=== PATIENT | male | born 1950 | race Caucasian/White ===

== ENCOUNTER → 2023-08-06 12:37 | Outpatient (REF) | payer MEDICARE, SELFPAY | LOC: WOUND 12:37 | PROVIDERS: ATTENDING PHYSICIAN Surgery; FAMILY PHYSICIAN Family Medicine | DX: L89.613 Pressure ulcer of right heel, stage 3 (principal); E11.65 Type 2 diabetes mellitus with hyperglycemia; E11.42 Type 2 diabetes mellitus with diabetic polyneuropathy; E66.01 Morbid (severe) obesity due to excess calories; I10 Essential (primary) hypertension; Z78.9 Other specified health status; Z79.4 Long term (current) use of insulin | CPT/HCPCS: 99203 ==

== ENCOUNTER 2023-08-06 17:32 | Inpatient (IN) | payer MEDICARE, SELFPAY ==
[2023-08-06 13:07] VITALS: BP 155/100
[2023-08-06 14:56] VITALS: BMI 39.5
--- NOTE | 2023-08-06 15:11 | ED.GENMED ---
History of Present Illness
<Britany Wagner PA-C - Last Filed: 08/06/23 17:49>
General
Chief Complaint: Skin Problem
Source: patient
Exam Limitations: none
Time Seen by Provider: 08/06/23 14:34
Nursing documentation reviewed up to this point in time: agreed with
Travel History
Have you had any contact with someone who has COVID-19?: No
Do you have any symptoms of coronavirus? Fever > 100 degrees, chills, cough, shortness of breath, sore throat, loss of taste or smell, muscle aches, or headache?: No
History of Present Illness
History of Present Illness:
Patient is a 72-year-old male with history diabetes, hypertension presenting for evaluation of right foot wound. Patient states that he stepped on a nail/pin that went through his shoe approximately 4 months ago around [place] time and has been
dealing with a wound on right heel since. He was being seen at wound care center at [facility] but stopped going since it was too far away. Patient's son has been assisting patient dressing changes/wound care but it has been 3 weeks since
last cleaning. Patient states that right lower leg and foot became increasingly more swollen about a week ago with worsening pain after his bandage fell off. Patient has been unable to clean and replace bandage himself. Patient has not had a
shower in over a week. Patient was seen by his primary care provider earlier today who referred him to the emergency room for concern of infection.
Patient denies any fever, chills, nausea/vomiting, chest pain, shortness of breath.
Patient does state that his tetanus shot was updated about 3 years ago.
Past History
<Britany Wagner PA-C - Last Filed: 08/06/23 17:49>
Past History
ED Past Medical History: GERD, HTN, Hypercholesterolemia and IDDM
ED Past Surgical History: None
Social History
Tobacco: Non-smoker
Alcohol: None
Drug: None
Living: with family
Phy Exam
<Britany Wagner PA-C - Last Filed: 08/06/23 17:49>
Physical Exam
Physical Exam:
General: In no apparent distress, nontoxic appearing
Vitals: Hypertensive, otherwise vital signs stable; afebrile
HEENT: Atraumatic, normocephalic; pupils equal round and reactive to light bilaterally, sclera anicteric bilaterally, protecting airway
Neck: appears supple, no meningeal signs
CV: Regular rate and rhythm, heart sounds normal, no evidence of cyanosis
Resp: No evidence of respiratory distress, lungs clear
Abd: Obese, soft, nontender, non-distended
Extremities: Poor hygiene of feet and toes-covered in dirt, large approximately 9 cm in diameter circular shallow wound on right heel without any evidence of necrosis; wound tender to touch, significant swelling of right foot and right lower
extremity, DP pulses palpable bilaterally
Neuro: alert and oriented x 3; grossly intact, speech normal
Psych: Normal affect
Skin: Large wound of right heel as documented above
Course
<Britany Wagner PA-C - Last Filed: 08/06/23 17:49>
Orders/Labs/Results
Orders:
Orders
08/06/23 15:06
Piperacillin/Tazo 3.375 Gram [Zosyn] 3.375 gram in 50 ml IV NOW
Foot, Right 3 View [CR Foot - Right Min 3 Views] Urgent
Comment:
Reason For Exam: diabetic foot wound right heel
08/06/23 15:10
Tetanus/Diphth/Acelpertussis [Adacel] 0.5 ml IM .ONCE ONE
08/06/23 15:31
Complete Blood Count/With Diff Urgent
Comprehensive Metabolic Panel Urgent
Blood Culture Q30M
PILY Source: Blood/Venous
Specimen Description:
Blood Culture Q30M
PILY Source: Blood/Venous
Specimen Description:
Wound Culture [Wound/Abscess/Other Culture] Urgent
PILY Source: Foot
Specimen Description: Right
Date Specimen was Collected: 08/06/23
Time Specimen was Collected: 15:16
08/06/23 15:43
Vancomycin [Vancocin] 2,000 mg 0.9% Sodium Chloride 500 ml [Nss] 500 ml IV NOW
08/06/23 17:19
Admit/Transfer Patient As Directed
Co-Sign Provider:
Level of Care: Inpatient admission
Assign to:: Medical/Surgical
Physician / Group: sabino calderón
Diagnosis: right heel / achilles diabetic wound, self care defecit
Reason for Hospitalization: right heel / achilles diabetic wound, self care defecit
Expected length of stay greater than two midnights?: Yes
ELOS- Estimated Length of Stay in days: 4
I certify the patient meets the requirements for IP care: Yes
Code Status As Directed
Resuscitation Status: Full Code
08/06/23 17:24
Lisinopril [Zestril] 20 mg PO NOW STA
08/06/23 17:32
PODIATRY CONSULT Routine
Consulting Provider: Evan Braun
Was physician already notified: Yes
Reason for consult: right heeel / achilles diabetic wound
Abnormal Lab Results
08/06/23
15:31
RBC 4.24 L 10^6/uL
(4.70-6.10)
Hgb 12.3 L g/dL
(13.0-18.0)
Hct 37.2 L %
(39.0-52.0)
Neutrophils % 75.9 H %
(42.2-75.2)
Lymphocytes % 16.8 L %
(20.5-51.1)
Sodium 133 L mmol/L
(135-145)
Glucose 235 H mg/dl
(70-99)
08/06/23 15:31
08/06/23 15:31
Vital Signs
Initial and Last Documented VS:
Initial Vital Signs
Temp Pulse Resp BP Pulse Ox
97.4 F 95 20 155/100 99
08/06/23 13:07 08/06/23 13:07 08/06/23 13:07 08/06/23 13:07 08/06/23 13:07
Last Documented Vital Signs
Temp Pulse Resp BP Pulse Ox
97.4 F 95 20 155/100 99
08/06/23 13:07 08/06/23 13:07 08/06/23 13:07 08/06/23 13:07 08/06/23 13:07
<Jefferson Guevara MD - Last Filed: 08/06/23 15:36>
Orders/Labs/Results
Orders:
Orders
08/06/23 15:06
Piperacillin/Tazo 3.375 Gram [Zosyn] 3.375 gram in 50 ml IV NOW
Foot, Right 3 View [CR Foot - Right Min 3 Views] Urgent
Comment:
Reason For Exam: diabetic foot wound right heel
08/06/23 15:10
Tetanus/Diphth/Acelpertussis [Adacel] 0.5 ml IM .ONCE ONE
08/06/23 15:31
Complete Blood Count/With Diff Urgent
Comprehensive Metabolic Panel Urgent
Blood Culture Q30M
PILY Source: Blood/Venous
Specimen Description:
Blood Culture Q30M
PILY Source: Blood/Venous
Specimen Description:
Wound Culture [Wound/Abscess/Other Culture] Urgent
PILY Source: Foot
Specimen Description: Right
Date Specimen was Collected: 08/06/23
Time Specimen was Collected: 15:16
08/06/23 15:43
Vancomycin [Vancocin] 2,000 mg 0.9% Sodium Chloride 500 ml [Nss] 500 ml IV NOW
08/06/23 17:19
Admit/Transfer Patient As Directed
Co-Sign Provider:
Level of Care: Inpatient admission
Assign to:: Medical/Surgical
Physician / Group: sabino calderón
Diagnosis: right heel / achilles diabetic wound, self care defecit
Reason for Hospitalization: right heel / achilles diabetic wound, self care defecit
Expected length of stay greater than two midnights?: Yes
ELOS- Estimated Length of Stay in days: 4
I certify the patient meets the requirements for IP care: Yes
Code Status As Directed
Resuscitation Status: Full Code
08/06/23 17:24
Lisinopril [Zestril] 20 mg PO NOW STA
08/06/23 17:32
PODIATRY CONSULT Routine
Consulting Provider: Evan Braun
Was physician already notified: Yes
Reason for consult: right heeel / achilles diabetic wound
Abnormal Lab Results
08/06/23
15:31
RBC 4.24 L 10^6/uL
(4.70-6.10)
Hgb 12.3 L g/dL
(13.0-18.0)
Hct 37.2 L %
(39.0-52.0)
Neutrophils % 75.9 H %
(42.2-75.2)
Lymphocytes % 16.8 L %
(20.5-51.1)
Sodium 133 L mmol/L
(135-145)
Glucose 235 H mg/dl
(70-99)
08/06/23 15:31
08/06/23 15:31
Vital Signs
Initial and Last Documented VS:
Initial Vital Signs
Temp Pulse Resp BP Pulse Ox
97.4 F 95 20 155/100 99
08/06/23 13:07 08/06/23 13:07 08/06/23 13:07 08/06/23 13:07 08/06/23 13:07
Last Documented Vital Signs
Temp Pulse Resp BP Pulse Ox
97.4 F 95 20 155/100 99
08/06/23 13:07 08/06/23 13:07 08/06/23 13:07 08/06/23 13:07 08/06/23 13:07
<Britany Wagner PA-C - Last Filed: 08/06/23 17:49>
MDM/Problems Addressed
Differential Diagnosis Includes:
Diabetic foot wound, cellulitis, osteomyelitis
MDM/Problems Addressed:
Patient is a 72-year-old male with insulin-dependent diabetes presenting from primary care's office for evaluation of chronic right foot wound. Present for the past 4 months but stopped going to wound care center due to distance from home. No
dressing changes or wound care in past 10 days. No systemic symptoms of infection. Patient is hypertensive, otherwise vital signs stable. He is afebrile, nontoxic-appearing. Physical exam as document above. Large approximate 9 cm circular
shallow wound on the right heel without any signs of necrosis. There is associated significant swelling of right foot and right lower extremity likely due to chronic wound. Patient with very poor hygiene, hands and feet covered with dirt. He has
been unable to complete ADLs independently.
Will check basic labs, blood cultures, wound culture. Will check x-ray of foot to rule out osteomyelitis.
Will start IV vancomycin/Zosyn. Plan to admit to hospitalist pending lab work.
Labs without any clinically significant abnormalities. Foot x-ray shows no signs of osteomyelitis. Wound culture collected and pending. Blood cultures pending. Will admit to hospitalist for IV antibiotics and management of wound. Discussed with
hospitalist. Patient agreeable to plan.
Chronic conditions affecting care:
Insulin-dependent diabetes, hypertension
Acute Exacerbation and/or Progression of Chronic Illness:
Diabetic foot wound, acutely hypertensive
<Britany Wagner PA-C - Last Filed: 08/06/23 17:49>
*Radiology
Radiology exam reviewed: preliminary read by ED provider and radiology read reviewed
*Pulse Oximetry
Patient hypoxic: no
*EKG
Interpreted by ED Provider?: NA
*Blood Bank Calendar Control Clerk Interpretation
Rate: Blood Bank Calendar Control Clerk- N/A
*Critical Care Note
Total Time (30-74mins, 75-104mins- exclusive of procedures): Not Applicable
Data Reviewed
Further Testing Considered But Not Given:
Consider ultrasound of lower extremities due to degree of swelling but highly suspect related to wound on right heel
<Britany Wagner PA-C - Last Filed: 08/06/23 17:49>
Patient Management
Social determinants of health affecting care: Living situation
Discussion with other providers: Hospitalist
Escalation/DeEscalation of care consider admission/obs:
Admit for IV antibiotics and management of chronic right heel wound
ED Attending Note
<Britany Wagner PA-C - Last Filed: 08/06/23 17:49>
-
Portions of this chart may have been created with voice recognition software.� Occasional wrong word or��sound alike� substitutions may have occurred due to the inherent limitations of voice recognition software.
<Jefferson Guevara MD - Last Filed: 08/06/23 15:36>
ED Attending Note
Patient seen and examined by attending physician: Yes
ED Attending Note:
HPI: 72-year-old male with a past medical history of hypertension, obesity, insulin-dependent diabetes who presents to the emergency room for evaluation of right foot wound pain and concern for infection. Patient's primary care physician sent
patient to the emergency room, called ahead with concerns that patient had infected wound on the right foot that is poorly cared for. Patient says that he sustained the wound 2 or 3 months ago after stepping on a pin/nail that went through his
shoe. He was initially seen wound care at [facility] but it sounds like he stopped going about 3 weeks ago because the commute was too far for him. Has not received any significant wound care since. He says over the past few days has been
having increasing pain from the wound. Slight amount of drainage. He notices leg swelling up more. Saw primary doctor today and was referred to the emergency room as above. He denies any fevers or chills. He denies any other complaints. He
says that his tetanus shot is up-to-date as of 3 years ago.
ROS: Positive for pain, drainage from right heel wound; negative for fever, chills
Physical exam:
General: Awake, alert, oriented x3; no acute distress
Head: Normocephalic, atraumatic
Eyes: Conjunctiva normal
Throat: Airway intact, handling secretions
Neck: Trachea midline
Lungs: Clear to auscultation bilaterally, no wheezing, rales, rhonchi
Heart: Regular rate and rhythm, no murmurs, gallops, or rubs
Abd: Soft, non distended, nontender; small reducible periumbilical hernia
Neuro: Cranial nerves grossly intact, speech fluid
Skin: Heel wound as below
Extremities: Patient's feet are covered in dirt and poorly cared for; he has a large approximately 10 cm diameter circular wound on the right heel which is shallow-based with no necrosis, granulation tissue around the margins only some slight serous
discharge but no purulent drainage; there is a rim of erythema around the wound there is tenderness to the touch; he has edema in the right ankle and lower leg; fortunately has good pulses including a palpable right DP pulse
Differential diagnosis: Foot wound infection, chronic wound
Medical decision makin-year-old male presents for evaluation of increasing pain and drainage from right heel wound�had been receiving wound care at [facility] but stopped going about 3 weeks ago as above. Hypertensive but otherwise
normal vitals. Exam as above. Will send labs including a CBC and CMP, blood cultures. Check an x-ray of the heel and wound culture. Will start on broad-spectrum antibiotics plan for admission for continued management of infected diabetic heel
wound and coordination of outpatient wound care.
Chronic conditions affecting care: Insulin-dependent diabetes
Acute exacerbation or progression of chronic illness: Acutely hypertensive
History source: Patient, PCP
Data reviewed: Prior labs and records
Medications/testing considered: N/A
Social determinants of health: Poor outpatient follow-up
Discussion with other providers: Hospitalist, PCP
Discharge Plan
Departure
Patient Disposition: Admit
Date of Disposition: 08/06/23
Time of Disposition: 16:31
Presentation/result/management discussed w/ accepting MD/DO: Hospitalist
Discharge Problem:
Wound of right foot
Prescriptions:
No Action
aspirin 81 MG tablet,chewable
81 mg PO DAILY 0RF
oxycodone 15 mg Tablet
7.5 mg PO QID
Novolin R Regular U100 Insulin 100 UNITS/ML solution
30 units SC BID
Humulin N NPH U-100 Insulin 100 UNIT/ML suspension
50 units SC DAILY@1200
lisinopril-hydrochlorothiazide 20-12.5 mg tablet
1 tab PO DAILY
Referrals:
Stanislaw Mckinney DO [Family Provider] -
Discharge Date and Time
Print Language: VINCENTIAN
[2023-08-06] MEDS: ZOSYN 50 IV ×2 (15:42→21:57)
[2023-08-06 15:56] LABS: % Basophils 0.6 % (0-2); % Eosinophils 0.4 % (0-6); % Immature Granulocytes 0.3 % (0-0.5); % Lymphocytes 16.8 % (20.5-51.1); % Neutrophils 75.9 % (42.2-75.2); Absolute Basophils 0.1 10^3/uL (0-0.2); Absolute Lymphocytes 1.3 10^3/uL (1.2-3.4); Absolute Monocytes 0.5 10^3/uL (0.1-0.6); Absolute Neutrophils 6.1 10^3/uL (1.4-6.5); Hematocrit 37.2 % (39.0-52.0); Hemoglobin 12.3 g/dL (13.0-18.0); Mean Corp Hgb Conc. 33.1 g/dL (33.0-37.0); Mean Corpuscular Volume 87.7 fL (80.0-94.0); Mean Platelet Volume 9.2 fL (7.4-10.4); Nucleated Red Blood Cells % 0 % (-); Platelet Count 238 10^3/uL (130-400); Red Blood Cell Count 4.24 10^6/uL (4.70-6.10); Red Cell Dist. Width 12.6 % (11.5-14.5)
[2023-08-06] MEDS: VANCOCIN 540 MG IV (16:06)
[2023-08-06 16:18] LABS: ALT (SGPT) 20 U/L (0-50); AST (SGOT) 25 U/L (17-59); Albumin 3.6 g/dl (3.5-5.0); Alkaline Phosphatase 65 U/L (38-126); Blood Urea Nitrogen 16 mg/dl (9-20); Calcium 8.9 mg/dl (8.4-10.2); Carbon Dioxide 26 mmol/L (22-30); Chloride 99 mmol/L (98-107); Estimated Creatinine Clearance 61 ml/min; Glucose 235 mg/dl (70-99); Sodium 133 mmol/L (135-145); Total Bilirubin 1.3 mg/dl (0.2-1.3); Total Protein 7.2 g/dl (6.3-8.2); eGFR 58.73
--- NOTE | 2023-08-06 16:52 | HPS.HSE ---
Addendum entered and electronically signed by Lei Soto MD 08/06/23 17:49:
I saw and examined the patient.
The SHEARING SHED HAND or PA's note was reviewed and I agree with the note.
Comment: History as noted and agreed on and interviewed the patient examined
On inspection of the foot although the area involved is significantly enlarged and eroded to at least 9 cm in diameter there does not seem to be any deep involvement may only involve the Achilles structure if at all. We will involve podiatry for
wound care and we will obtain an MRI although initial x-ray does not show bone involvement MRI will be more sensitive and specific there does not seem to be any systemic involvement and no signs of sepsis. The major issue seems to be his poor
upkeep poor hygiene and his inability to obtain wound care assistance he has no axis to that since that was all being offered by his son who has been now incarcerated for 2 months. He seemed to be totally unaware that there may be home care
services available to him and this should be offered to him while here while also obtaining better management of his insulin dependency and he has been apparently also poorly compliant with this in the last several weeks along with his wound care.
He had stopped taking his antihypertensives when this will be restarted we will obtain also diabetic nurse practitioner assessment and follow-up and adjustments in his present insulin regime we will keep him on oxycodone for pain management may also
have some benefit from placing him on treatment of neuropathy such as gabapentin. Will need to arrange home care services on his eventual discharge to a structured follow-up plan for future wound care and medical maintenance.
Original Note:
Family Physician
-
Family Physician: Stanislaw Mckinney,
Chief Complaint
-
Right foot diabetic wound, increased pain/edema
History of Present Illness
72-year-old male with a chronic right foot diabetic wound that has been ongoing since March 4 months ago after stepping on a nail/pin that went through his shoe. He has a chronic right heel wound since then and has been following at wound care
center at [facility] but stopped going 10 days ago because it was too far away. He also has a wound over his posterior right Achilles area. His feet and hands are dirt covered. He states he has not had a shower in over 1 week. He has not
taken his medications for the past 3 to 4 days. His son was helping him clean his wound, but over the past 3 weeks the wound has not been cleaned or dressing changed except 1 time 10 days ago. The patient reports his son has not been around due to
recent incarceration. The patient is unable to do himself at home and is looking for home care the patient has been unable to do these tasks by himself. He reports increased swelling and pain to the right lower extremity.
PMH DM2, HTN, HLD, GERD, morbid obesity, chronic neuropathy on chronic oral opiates
Medical History
Past Medical History
Past Medical History: Reports Other
Additional Past Medical History:
DM2
HTN
HLD
GERD
morbid obesity
chronic neuropathy on chronic oral opiates
Past Surgical History: Reports None
Social History
Tobacco: Non-smoker
Alcohol: None
Drug: None
Personal: Single
Living: Alone
Employment: Retired
Family History
Family History: Other (Mother and father old age)
Allergies / Home Medications
Allergies reflects when Allergies were last updated in [employer].
Home Medications with original date entered in [employer]
Allergy/Medication List:
Allergies
Allergy/AdvReac Type Severity Reaction Status Date / Time
cat dander Allergy Unknown Verified 08/06/23 13:11
dog dander Allergy Unknown Verified 08/06/23 13:11
Home Medications
aspirin 81 mg chewable tablet 81 mg PO DAILY 09/01/21
insulin NPH isoph U-100 human 100 unit/mL subcutaneous suspension (Humulin N NPH U-100 Insulin (isophane susp)) 50 units SC DAILY@1200 Diabetes 08/06/23
insulin regular human 100 unit/mL injection solution (Novolin R Regular U-100 Insulin) 30 units SC BID Diabetes 08/06/23
lisinopril-hydrochlorothiazide 20 mg PO DAILY 08/06/23
oxycodone 15 mg tablet 7.5 mg PO QID 08/06/23
Review of Systems
-
History Source: Patient
A 12 point ROS was completed and negative except as noted: Yes
Constitutional: Denies Fever, Fatigue or Chills
EENT: Denies Sore Throat or Runny Nose
Respiratory: Denies Cough or Trouble Breathing
Cardiac: Denies Chest Pain, Diaphoresis, Palpitations or Syncope
Abdomen/GI: Denies Abdominal Pain, Nausea, Vomiting, Diarrhea, Constipated or Bloody Stools
: Denies Dysuria, Frequency, Flank Pain, Incontinence, Difficulty Voiding or Urgency
Musculoskeletal: Reports Edema (Right foot and ankle, chronic large heel wound with open wound Achilles, surrounding erythema/swelling/both feet and hands covered in dirt)
Skin: Denies Itching or Rash
Neurological: Denies Dizzy, Headache or Weakness
Endocrine: Reports No Symptoms
Hematologic/Lymphatic: Reports No Symptoms
Psych: Reports Calm
Physical Exam
Vital Signs
Vital Signs
Temp Pulse Resp BP Pulse Ox
97.4 F 95 20 155/100 99
08/06/23 13:07 08/06/23 13:07 08/06/23 13:07 08/06/23 13:07 08/06/23 13:07
Physical Exam
General: Pain; No Fever or Chills
HEENT: NormoCephalic, Anicteric, Moist mucous membranes, PERRLA, [place] Conjunctivae and No Ptosis
Respiratory: Clear; No Wheezes, Rales or Rhonchi
Cardiac: S1/S2; No Murmur, Rub, Gallop or Peripheral Edema
Breast: Deferred by me
GI: Soft, Non Tender, Non Distended, Normal Bowel Sounds and No Hepatosplenomegaly
Rectal: Deferred by Provider
Genito-urinary: Deferred by me
Musculoskeletal: No Clubbing, No Cyanosis and Edema, Right Lower Extremity (Right foot and ankle, chronic large heel wound with open wound Achilles, surrounding erythema/swelling/both feet and hands covered in dirt); No Edema, Left Upper Extremity,
Edema, Right Upper Extremity or Edema, Left Lower Extremity
Skin: Warm, Dry and Rash
Neuro: AO x 3, No Motor Deficits and No Sensory Deficits; No Slurred Speech, Facial Droop or Tremors
Psych: Calm
Laboratory Results
-
08/06/23 15:31
08/06/23 15:31
Laboratory Results
Total Bilirubin 1.3 mg/dl (0.2-1.3) 08/06/23 15:31
AST 25 U/L (17-59) 08/06/23 15:31
ALT 20 U/L (0-50) 08/06/23 15:31
Alkaline Phosphatase 65 U/L (38-126) 08/06/23 15:31
Impression/Plan
-
Impression/plan:
Admit to MedSurg
#Right foot diabetic wound nonhealing
# Right heel wound wound x 4 months
-Follows with prior wound care [facility]
WBC 8, afebrile
-Consult Podiatry
-Consult wound care
-MRI right foot
-Wound culture, blood culture x 2
-IV vancomycin, Zosyn
-PT/OT/social work case manager consult
Foot x-ray right: Prominent soft tissue defect of the plantar dorsal margin of the calcaneal tuberosity without osteomyelitis no subcu emphysema or foreign body
#Self-care deficit
-Consult case management for home care
# Chronic neuropathy on chronic opiates
-Continue oxycodone 7.5 mg p.o. 4 times daily
#DM2
Accu-Cheks with SSI, check HgbA1c
-Continue regular insulin 30 units SQ twice daily, 50 units NPH SQ at noon
-consult diabetic SHEARING SHED HAND
# Accelerated HTN/HTN�benign
155/100
-Patient has not taken his lisinopril/HCTZ 20-12.5 mg over the past few days
#HLD
-No current meds listed
#Morbid obesity due to excess calorie consumption�BMI 39.5 kg
Weight loss recommended, low-fat 1800 ADA diet
DVT prophylaxis
Subcu Lovenox
Full code
[2023-08-06] MEDS: ZESTRIL 20 MG PO (17:45)
[2023-08-06 17:46] VITALS: BP 180/92
[2023-08-06 18:08] VITALS: BP 215/113; BMI 38.2
--- NOTE | 2023-08-06 19:18 | PHA.VAN.IN ---
Assessment
- Assessment
Renal Function: Appears elevated from baseline (02/06/11 BASELINE SCR: 1.1)
Concomitant Antimicrobials: ZOSYN
- Previous Dosing Experience
Previous Regimen: 1GM IV Q12H
Date of Regimen: 02/01/11
Provided Trough of: 10.8
Provided AUC of: UNKNOWN
Patient's SCR is: Elevated compared to previous dosing experience (02/01/11 SCR = 1.1)
Patient's weight is: Elevated compared to previous dosing experience (02/01/11 WT = 89.2 KG)
AUC Dosing Plan
- Dosing Variables
Dosing Weight (kg): 107.3
Dosing CrCl (ml/min): 60
Vd coefficient (L/kg): 0.6
- Empiric Dosing
Initial / Loading Dose: 2GM
Maintenance Regimen: 1750MG IV Q24H
Estimated AUC (mcg*h/mL): 522
Estimated Peak (mcg*h/mL): 37.4
Estimated Trough (mcg/ml): 11.0
Estimated Half Life (H): 12.8
Pharmacokinetics Vancomycin I
- -
Patient Age: 72
Patient Sex: Male
Vancomycin Day #: 1
Indication: Diabetic Foot
Requesting Provider: [place]
Height / Weight:
Height 5 ft 6 in
Actual Weight 107.303 kg
Pertinent Past Medical History: IDDM; OM
- Vital Signs / Lab Results
Temp Pulse Resp BP Pulse Ox
97.9 F 72 20 215/113 98
08/06/23 18:08 08/06/23 18:08 08/06/23 18:08 08/06/23 18:08 08/06/23 18:08
Lab Results - Hematology
08/06/23
15:31
WBC 8.0
Lab Results - Chemistry
08/06/23
15:31
BUN 16
Creatinine 1.3
Estimated Creat Clear 61
Albumin 3.6
Microbiology Results
08/06/23 15:31 Gram Stain - Preliminary
Foot - Right
[2023-08-06 21:14] LABS: Glucose - Point of Care 285 mg/dl (70-99)
[2023-08-06] MEDS: ROXICODONE PO (21:34)
[2023-08-06] MEDS: LOVENOX 40 MG SC (21:53)
[2023-08-06] MEDS: NovoLIN R Flexpen 30 UNITS SC (21:55)
[2023-08-06] MEDS: ROXICODONE 7.5 MG PO (21:57)
[2023-08-06 23:55] VITALS: BP 179/84
--- NOTE | 2023-08-07 05:14 | DOWNTIME ---
There was a Travel [employer] Client Watch [employer] Downtime on 08/07/2023 from 0100 to 08/07/2023 at 0439. Downtime documentation of patient's care, including medication administrations, has been reconciled in the electronic record per guidelines. Refer to the
patient's paper chart under the miscellaneous tab to see printed paper medication records and downtime forms.
[2023-08-07] MEDS: ZOSYN 50 IV ×4 (05:18→21:28)
[2023-08-07] MEDS: VANCOCIN 535 MG IV (05:56)
[2023-08-07 07:15] VITALS: BP 175/87
[2023-08-07 07:26] LABS: Glucose - Point of Care 84 mg/dl (70-99)
[2023-08-07] MEDS: NOVOLOG FLEXPEN-LOW RESISTANCE SC (08:18)
[2023-08-07] MEDS: ORETIC 12.5 MG PO (08:19)
[2023-08-07] MEDS: ROXICODONE 7.5 MG PO ×3 (08:19→21:28)
[2023-08-07] MEDS: NovoLIN R Flexpen 30 UNITS SC (08:20)
[2023-08-07] MEDS: ZESTRIL 20 MG PO (08:21)
--- NOTE | 2023-08-07 08:44 | W.PN.HOSP.TC ---
Today's Communication/Plan
-
Await wound care and podiatry input
Awaiting nurse practitioner to evaluate compatibility for continued present dosing of his insulin at home which she has been noncompliant with
Continue Zosyn and vancomycin/a MRSA screen that was performed 2 years ago was negative will repeat
Assessment / Plan
Assessment / Plan
72-year-old male with a chronic right foot diabetic wound that has been ongoing since March 4 months ago after stepping on a nail/pin that went through his shoe. He has a chronic right heel wound since then and has been following at wound care
center at [facility] but stopped going 10 days ago because it was too far away. He also has a wound over his posterior right Achilles area. His feet and hands are dirt covered. He states he has not had a shower in over 1 week. He has not
taken his medications for the past 3 to 4 days. His son was helping him clean his wound, but over the past 3 weeks the wound has not been cleaned or dressing changed except 1 time 10 days ago. The patient reports his son has not been around due to
recent incarceration. The patient is unable to do himself at home and is looking for home care the patient has been unable to do these tasks by himself. He reports increased swelling and pain to the right lower extremity.
PMH DM2, HTN, HLD, GERD, morbid obesity, chronic neuropathy on chronic oral opiates
Physical Exam
General: Pain; No Fever or Chills
HEENT: NormoCephalic, Anicteric, Moist mucous membranes, PERRLA, Christine Conjunctivae and No Ptosis
Respiratory: Clear; No Wheezes, Rales or Rhonchi
Cardiac: S1/S2; No Murmur, Rub, Gallop or Peripheral Edema
Breast: Deferred by me
GI: Soft, Non Tender, Non Distended, Normal Bowel Sounds and No Hepatosplenomegaly
Rectal: Deferred by Provider
Genito-urinary: Deferred by me
Musculoskeletal: No Clubbing, No Cyanosis and Edema, Right Lower Extremity (Right foot and ankle, chronic large heel wound with open wound Achilles, surrounding erythema/swelling/both feet and hands covered in dirt); No Edema, Left Upper Extremity,
Edema, Right Upper Extremity or Edema, Left Lower Extremity
Skin: Warm, Dry and Rash
Neuro: AO x 3, No Motor Deficits and No Sensory Deficits; No Slurred Speech, Facial Droop or Tremors
Psych: Calm
#Right foot diabetic wound nonhealing
# Right heel wound wound x 4 months
-Follows with prior wound care [facility]
WBC 8, afebrile
-Consult Podiatry
-Consult wound care
-MRI right foot
-Wound culture, blood culture x 2
-IV vancomycin, Zosyn
-PT/OT/correctional case manager consult
Foot x-ray right: Prominent soft tissue defect of the plantar dorsal margin of the calcaneal tuberosity without osteomyelitis no subcu emphysema or foreign body
#Self-care deficit
-Consult case management for home care
# Chronic neuropathy on chronic opiates
-Continue oxycodone 7.5 mg p.o. 4 times daily
-Add some gabapentin
#DM2
Accu-Cheks with SSI, check HgbA1c
-Continue regular insulin 30 units SQ twice daily, 50 units NPH SQ at noon
-consult diabetic VALET SERVICE ATTENDANT
# Accelerated HTN/HTN�benign
155/100
-Patient has not taken his lisinopril/HCTZ 20-12.5 mg over the past few days
#HLD
-No current meds listed
#Morbid obesity due to excess calorie consumption�BMI 39.5 kg
Weight loss recommended, low-fat 1800 ADA diet
DVT prophylaxis
Subcu Lovenox
Full code
Anticipated Discharge: 24 - 48 hours
Subjective/Interval History
-
Date of Service: August 07, 2023
Patient cleaned up quite a bit overnight by staff and looks much better right foot and heel is dressed awaiting podiatry input and MRI
Objective Data
-
Labs:
Laboratory Results
08/07/23
07:51
WBC Pending
Hgb Pending
Hct Pending
Plt Count Pending
Sodium Pending
Potassium Pending
Chloride Pending
Carbon Dioxide Pending
BUN Pending
Creatinine Pending
Glucose Pending
Calcium Pending
Vital Signs:
Vital Signs
Temp Pulse Resp BP Pulse Ox
98.8 F 62 20 175/87 96
08/07/23 07:15 08/07/23 08:21 08/07/23 07:15 08/07/23 08:21 08/07/23 07:15
I&O
08/06/23 08/07/23 08/08/23
06:59 06:59 06:59
Intake Total 635 / 635
Output Total 250 / 250
Balance 385 / 385
Review of Systems
-
History Source: Patient
Constitutional: Reports No Symptoms
Musculoskeletal: Reports Joint Swelling, Muscle Pain and Edema
Physical Exam
-
General: Well Developed
HEENT: Normocephalic
Respiratory: Clear to Auscultation
Cardiac: Regular Rhythm
GI: Soft, Nontender and Nondistended
Musculoskeletal: Edema, Right Lower Extrem (Dressed right foot and heel/better hygiene of hands and feet)
Neuro: Awake, Alert, Oriented, AO x 3 and No Motor Deficits
Psych: Calm and Apparent Dementia
Data Reviewed
-
Total Time Spent with Patient (in minutes): 45
Diagnostic Radiology: Report Reviewed by me (Foot x-ray with prominent soft tissue defect at the plantar dorsal margin of the calcaneal tuberosity without radiographic evidence of osteomyelitis)
Labs: Labs Reviewed by me (Today's labs pending no prior leukocytosis on presentation yesterday)
[2023-08-07 08:52] LABS: % Basophils 0.7 % (0-2); % Eosinophils 2.7 % (0-6); % Immature Granulocytes 0.3 % (0-0.5); % Lymphocytes 25.8 % (20.5-51.1); % Monocytes 9.5 % (1.7-9.3); Absolute Basophils 0.1 10^3/uL (0-0.2); Absolute Eosinophils 0.2 10^3/uL (0-0.7); Absolute Lymphocytes 1.7 10^3/uL (1.2-3.4); Absolute Monocytes 0.6 10^3/uL (0.1-0.6); Absolute Neutrophils 4.1 10^3/uL (1.4-6.5); Hematocrit 34.3 % (39.0-52.0); Hemoglobin 11.2 g/dL (13.0-18.0); Mean Corp Hgb Conc. 32.7 g/dL (33.0-37.0); Mean Corpuscular Hgb 28.9 pg (27.0-31.0); Mean Corpuscular Volume 88.6 fL (80.0-94.0); Mean Platelet Volume 9.4 fL (7.4-10.4); Nucleated Red Blood Cells % 0 % (-); Platelet Count 228 10^3/uL (130-400); Red Blood Cell Count 3.87 10^6/uL (4.70-6.10); Red Cell Dist. Width 12.8 % (11.5-14.5); White Blood Cell Count 6.7 10^3/uL (4.8-10.8)
--- NOTE | 2023-08-07 09:15 | PHA.VAN.FU ---
Vancomycin Assessment / Plan
- Assessment
Renal Function: SCR Increasing
WBC's are: WNL
In the past 24 hrs, patient has been: Afebrile
Concomitant Antimicrobials: piperacillin/tazobactam
- Dosing Plan
Adjust Regimen to: dosing by level
Dosing Comments: received 1750mg at 05:56 - no further dosing today
- Monitoring Plan
Random Level: 08/07 0600
- Follow Up
Pharmacy will continue to follow.
Vancomycin Follow UP
- -
Patient Age: 72
Patient Sex: Male
Vancomycin Day #: 2
Indication: Diabetic Foot
Requesting Provider: Mark Iglesias
Pertinent Antimicrobial Allergies:
no pertinent antibiotic allergies
Height / Weight:
Height 5 ft 6 in
Actual Weight 107.303 kg
Pertinent Past Medical History: DM, BMI ~38
- Vital Signs / Lab Results
Temp Pulse Resp BP Pulse Ox
98.8 F 62 20 175/87 96
08/07/23 07:15 08/07/23 08:21 08/07/23 07:15 08/07/23 08:21 08/07/23 07:15
Lab Results - Hematology
08/06/23
15:31
WBC 8.0
Lab Results - Chemistry
08/06/23
15:31
BUN 16
Creatinine 1.3
Estimated Creat Clear 61
Albumin 3.6
Microbiology Results
08/06/23 15:31 Gram Stain - Preliminary
Foot - Right
[2023-08-07 09:29] LABS: Blood Urea Nitrogen 17 mg/dl (9-20); Calcium 8.4 mg/dl (8.4-10.2); Carbon Dioxide 26 mmol/L (22-30); Chloride 102 mmol/L (98-107); Estimated Creatinine Clearance 49 ml/min; Glucose 81 mg/dl (70-99); Sodium 136 mmol/L (135-145); eGFR 45.78
[2023-08-07 09:40] LABS: Potassium 4.2 mmol/L (3.5-5.1)
--- NOTE | 2023-08-07 10:18 | WOUNDNOTE ---
WON RN note: Patient admitted with wound to R foot.
See H&P for complete history. Lives alone, son is incarcerated.
PMH: IDDM, HTN, mobility and balance issues and obesity.
Wound Location and type/assessment: Patient admitted with: R plantar heel large pink ulcer, no bone exposed, scant white slough in corner, moderate serosanguineous drainage, no odor. States he stepped on a nail while wearing shoes several months
ago, just recently got bad. Went to [facility] and was sent from there to ER. Spoke to wound nurse Shabnam who updated this racebook writer on patients history and self care situation. Area of Agency was contacted in past, they called several times but patient
said he ignored them. + pulses Audible with Doppler, skin warm and dry, edema in R foot and lower leg. X ray negative for osteomyelitis, MRI pending. R foot wound culture pending. Patient states he does not use any special offloading shoe and has
trouble with balance, uses a cane. Podiatry consult pending. TT photo to Dr. Braun who was consulted. Picture shown to Dr. Soto and discussed care.
Appetite: Good.
Pressure redistribution devices in place: Accumax, turns self. Air chair cushion needs assist with transfer to bed.
Plan: R foot applied alginate, abd pad and Kerlix, spandage. Offloaded heel with air chair cushion on pillow. Confirmed orders with Dr. Braun, made aware podiatry consult still pending. Updated care plan and will follow as needed.
Note to case management of equipment requested for discharge: VN if goes home.
Recommend follow up at wound care center upon discharge.
[2023-08-07 10:30] VITALS: BP 167/82; PULSE 69; O2SAT 97
[2023-08-07 10:49] VITALS: BP 167/82; PULSE 70; O2SAT 100
[2023-08-07 11:43] LABS: Glucose - Point of Care 228 mg/dl (70-99)
[2023-08-07] MEDS: HUMULIN N KWIKPEN 50 UNITS SC (11:45)
[2023-08-07] MEDS: NOVOLOG FLEXPEN-LOW RESISTANCE 2 UNITS SC (12:05)
[2023-08-07 12:48] LABS: Glycohemoglobin (HgbA1c) 11.9 % (4.0-5.6)
--- NOTE | 2023-08-07 13:21 | PN.DE.MGMTRT ---
Insulin Management
- -
08/07/2023 Diabetes Management Consult
Patient admitted 08/05 with R foot wound. Was being seen at [facility]. PMH: HTN, type2 diabetes, HLD, GERD, obesity, neuropathy. A1C 11.9%, cr 1.6, eGFR 45.78. Prior to admission patient states he was taking Humulin N 45 units at 12MN
and 45 units at 12 noon with Regular insulin 30 units at either breakfast or lunch.
Patient is awake alert and oriented, able to discuss diabetes regimen. Patient states he was not testing his blood sugar because it hurt too much. Reminded patient that there is a gauge from 1 to 5 to adjust depth that lancing device will puncture
his finger. Also discussed this is the opportune time to change insulin to AC novolog and lantus at HS. He is agreeable and states he would test his blood sugar.
Will start lantus 50 units @ hs with 8 units novolog AC and low corrective insulin.
Diabetes History
- -
Type of Diabetes: 2 requiring insulin
Pre-Admission Diabetes Regimen
08/06/23 08/07/23
15:31 07:51
Creatinine 1.3 1.6 H
Lab Results
Hemoglobin A1c 11.9 % (4.0-5.6) H 08/07/23 07:51
Insulin Pump Settings
IP Diabetes Regimen
08/06/23 08/06/23 08/07/23
15:31 21:12 07:25
Glucose 235 H
POC Glucose 285 H 84
08/07/23 08/07/23
07:51 11:42
Glucose 81
POC Glucose 228 H
Meal type: Breakfast
Amount consumed: 100%
Patient Education
--- NOTE | 2023-08-07 14:09 | VNURNOTE ---
Home Health Liaison met with patient at 1230 to discuss [facility] nurse/therapy, visits, schedule and homebound status. Patient is agreeable and understands that visits at home will be 2-3 x per week to assess and teach medical management of right foot
wound. Patient stated that his son has assisted him in the past but currently is incarcerated and he does not have anyone that can help. Wound Care Center at was discussed as a possible way to follow up and number provided.
[facility] brochure provided with contact information. Patient is aware that [facility] will contact him for start of care in 1-2 days after discharge from .
[facility] referral completed in Care Port.
[2023-08-07 15:08] VITALS: BP 177/85
[2023-08-07 16:33] LABS: Glucose - Point of Care 156 mg/dl (70-99)
--- NOTE | 2023-08-07 17:11 | CM ---
met with patient at bedside.patient lives alone in house with no pretty,his bed and bath is on the first level,he was ambulating i but precinct captain started using a walker.he is diabetic on insulin and states he does not test his blood sugar.his pcp is "Liliya"eli and he gets his meds from [facility] in [place].fernando has never had a vn or been to ip rehab in the past.patient told cm he wants to go home when stable for discharge with [facility] through [facility].
patient is adm with a diabetic wound right heel/achilles since mar 2023.he is on iv vanco.patiient was seen by therapy who recommended snf.spoke with patient who does not have a facility in mind but mentioned [facility].sent referrals to snf in
area.Plan:discharge to snf when medically stable.
[2023-08-07] MEDS: LOVENOX 40 MG SC (17:24)
[2023-08-07] MEDS: NEURONTIN 100 MG PO ×2 (17:24→21:28)
[2023-08-07] MEDS: NOVOLOG FLEXPEN 8 UNITS SC (17:29)
[2023-08-07] MEDS: NOVOLOG FLEXPEN-LOW RESISTANCE 1 UNITS SC (17:30)
[2023-08-07] MEDS: ROXICODONE PO (17:40)
--- NOTE | 2023-08-07 17:52 | W.PN.POD ---
Today's Communication
Today's Communication
*
Assessment / Plan
-
Consult surgical [employer] Ocean Clammer Reuben for possible excision of osteomyelitic bone. Wound Care; Normal Saline lavage. Calcium Alginate dressing and DSD daily.
Subjective
Chief Complaint
Diabetic with right heel wound
Subjective
Patient was being tx by [facility]. Patients son was providing wound care at home but is no longer avialable to help. Patient has not had any dressing changes prior to admission for ~ 10 days.
Objective
Temp Pulse Resp BP Pulse Ox
98 F 63 20 177/85 100
08/07/23 15:08 08/07/23 15:08 08/07/23 15:08 08/07/23 15:08 08/07/23 15:08
08/07/23 07:51
08/07/23 07:51
Vital Signs and Lab results were reviewed.
MRI results reviewed and indicate mild osteomyelitis of the calcaneal tuberosity.
Inspection: Ulcer (Right plantar/posterior calcaneal area 5.5cm x 5.5cm x ~.5 depth. Wound does not probe to bone at this time. No tunneling. Beefy granulating base with serous drainage at this time. )
[2023-08-07 21:12] LABS: Glucose - Point of Care 129 mg/dl (70-99)
[2023-08-07] MEDS: LANTUS 0.299999999999999989 UNITS SC (22:12)
[2023-08-07 23:51] VITALS: BP 157/130
[2023-08-08] MEDS: APRESOLINE 5 MG IV (00:42)
[2023-08-08] MEDS: ZOSYN 50 IV ×3 (03:29→16:02)
[2023-08-08 03:56] VITALS: BP 180/98
[2023-08-08 07:34] LABS: Glucose - Point of Care 164 mg/dl (70-99)
[2023-08-08 07:55] VITALS: BP 176/89
--- NOTE | 2023-08-08 08:27 | PN.DE.MGMTRT ---
Insulin Management
- -
08/08/2023 Diabetes Management Consult Follow up
Patient admitted 08/05 with R foot wound. Was being seen at [facility]. PMH: HTN, type2 diabetes, HLD, GERD, obesity, neuropathy. A1C 11.9%, cr 1.6, eGFR 45.78. Prior to admission patient states he was taking Humulin N 45 units at 12MN
and 45 units at 12 noon with Regular insulin 30 units at either breakfast or lunch.
Patient received 50 units NPH @ noon, hs glucose 129. Received lantus 30 units @ hs, fasting glucose this AM 164. Will increase HS lantus 40 units, may require 50 units as NPH affected hs glucose. 8 units novolog AC with low corrective insulin
to continue this AM. Pre lunch glucose 275, will increase AC novolog to 14 units AC with corrective dose.
Diabetes History
- -
Type of Diabetes: 2 requiring insulin
Pre-Admission Diabetes Regimen
08/07/23
07:51
Creatinine 1.6 H
Lab Results
Hemoglobin A1c 11.9 % (4.0-5.6) H 08/07/23 07:51
Insulin Pump Settings
IP Diabetes Regimen
08/07/23 08/07/23 08/07/23
07:51 11:42 16:32
Glucose 81
POC Glucose 228 H 156 H
08/07/23 08/08/23
21:10 07:30
Glucose
POC Glucose 129 H 164 H
Meal type: Dinner
Meal type: Lunch
Meal type: Breakfast
Amount consumed: 100%
Amount consumed: 100%
Amount consumed: 100%
Patient Education
[2023-08-08 08:29] LABS: % Basophils 0.8 % (0-2); % Eosinophils 3.6 % (0-6); % Immature Granulocytes 0.3 % (0-0.5); % Lymphocytes 34.5 % (20.5-51.1); % Monocytes 8.2 % (1.7-9.3); % Neutrophils 52.6 % (42.2-75.2); Absolute Basophils 0.1 10^3/uL (0-0.2); Absolute Eosinophils 0.2 10^3/uL (0-0.7); Absolute Lymphocytes 2.2 10^3/uL (1.2-3.4); Absolute Monocytes 0.5 10^3/uL (0.1-0.6); Absolute Neutrophils 3.3 10^3/uL (1.4-6.5); Hematocrit 36.3 % (39.0-52.0); Mean Corp Hgb Conc. 33.1 g/dL (33.0-37.0); Mean Corpuscular Hgb 28.9 pg (27.0-31.0); Mean Corpuscular Volume 87.5 fL (80.0-94.0); Mean Platelet Volume 9.4 fL (7.4-10.4); Nucleated Red Blood Cells % 0 % (-); Platelet Count 238 10^3/uL (130-400); Red Blood Cell Count 4.15 10^6/uL (4.70-6.10); Red Cell Dist. Width 12.7 % (11.5-14.5); White Blood Cell Count 6.4 10^3/uL (4.8-10.8)
[2023-08-08 08:44] LABS: Vancomycin Random 14.4 ug/ml
--- NOTE | 2023-08-08 09:11 | W.PN.HOSP.TC ---
Addendum entered and electronically signed by Lei Soto MD 08/08/23 14:06:
Based on expected surgery proposed for tomorrow and no prior history of coronary artery disease he is considered low risk for adverse outcome with noncardiac surgery with the 0.32% risk of perioperative NM or cardiac arrest
Addendum entered and electronically signed by Lei Soto MD 08/08/23 13:39:
Acute osteomyelitis
Original Note:
Today's Communication/Plan
-
Continue present course of antibiotics including vancomycin and Zosyn
Await MRSA screen
Await surgical path podiatry input
Will get ID input after resection of bone and bone margins
Assessment / Plan
Assessment / Plan
72-year-old male with a chronic right foot diabetic wound that has been ongoing since March 4 months ago after stepping on a nail/pin that went through his shoe. He has a chronic right heel wound since then and has been following at wound care
center at [facility] but stopped going 10 days ago because it was too far away. He also has a wound over his posterior right Achilles area. His feet and hands are dirt covered. He states he has not had a shower in over 1 week. He has not
taken his medications for the past 3 to 4 days. His son was helping him clean his wound, but over the past 3 weeks the wound has not been cleaned or dressing changed except 1 time 10 days ago. The patient reports his son has not been around due to
recent incarceration. The patient is unable to do himself at home and is looking for home care the patient has been unable to do these tasks by himself. He reports increased swelling and pain to the right lower extremity.
PMH DM2, HTN, HLD, GERD, morbid obesity, chronic neuropathy on chronic oral opiates
Physical Exam
General: Pain; No Fever or Chills
HEENT: NormoCephalic, Anicteric, Moist mucous membranes, PERRLA, [place] Conjunctivae and No Ptosis
Respiratory: Clear; No Wheezes, Rales or Rhonchi
Cardiac: S1/S2; No Murmur, Rub, Gallop or Peripheral Edema
Breast: Deferred by me
GI: Soft, Non Tender, Non Distended, Normal Bowel Sounds and No Hepatosplenomegaly
Rectal: Deferred by Provider
Genito-urinary: Deferred by me
Musculoskeletal: No Clubbing, No Cyanosis and Edema, Right Lower Extremity (Right foot and ankle, chronic large heel wound with open wound Achilles, surrounding erythema/swelling/both feet and hands covered in dirt); No Edema, Left Upper Extremity,
Edema, Right Upper Extremity or Edema, Left Lower Extremity
Skin: Warm, Dry and Rash
Neuro: AO x 3, No Motor Deficits and No Sensory Deficits; No Slurred Speech, Facial Droop or Tremors
Psych: Calm
#Right foot diabetic wound nonhealing/portion of calcaneus on MRI consistent with osteomyelitis
# Right heel wound wound x 4 months
-Follows with prior wound care [facility]
WBC 8, afebrile
-Consult Podiatry/surgical podiatry to evaluate for resection of infected bone
-Consult wound care
-Wound culture, blood culture x 2
-IV vancomycin, Zosyn/screen still pending
-PT/OT/case maker consult
-
Foot x-ray right: Prominent soft tissue defect of the plantar dorsal margin of the calcaneal tuberosity without osteomyelitis no subcu emphysema or foreign body
MRI right foot:: Large soft tissue defect adjacent to the dorsal lateral margin of the calcaneus with mild calcaneal tuberosity osteomyelitis. No focal fluid collection or abscess
#Self-care deficit
-Consult case management for home care
# Chronic neuropathy on chronic opiates
-Continue oxycodone 7.5 mg p.o. 4 times daily
-Add some gabapentin
#DM2
Accu-Cheks with SSI, check HgbA1c
-Poorly compliant Accu-Cheks at home and insulin maintenance and had been on NPH U100
-consult diabetic SELF DEFENSE INSTRUCTOR/transition to Lantus insulin 50 units and 8 units NovoLog with meals
# Accelerated HTN/HTN�benign
155/100
-Patient has not taken his lisinopril/HCTZ 20-12.5 mg over the past few days
#HLD
-No current meds listed
#Morbid obesity due to excess calorie consumption�BMI 39.5 kg
Weight loss recommended, low-fat 1800 ADA diet
DVT prophylaxis
Subcu Lovenox
Full code
Anticipated Discharge: 24 - 48 hours
Subjective/Interval History
-
Date of Service: August 08, 2023
Awoke from sleep goes right back to sleep after informed him of the issues with his heel and the bone infection which I made him repeat back to me. Also related to him the fact that he has been placed on Lantus insulin and Humalog as per the nurse
practitioner for diabetic management. He is aware and made aware that will need to see surgical podiatry for resection of the infected bone in his right heel.
Objective Data
-
Labs:
Laboratory Results
08/08/23
07:41
WBC 6.4
Hgb 12.0 L
Hct 36.3 L
Plt Count 238
Sodium Pending
Potassium Pending
Chloride Pending
Carbon Dioxide Pending
BUN Pending
Creatinine Pending
Glucose Pending
Calcium Pending
Vital Signs:
Vital Signs
Temp Pulse Resp BP Pulse Ox
97.7 F 63 20 180/98 95
08/08/23 03:56 08/08/23 03:56 08/08/23 03:56 08/08/23 03:56 08/08/23 03:56
I&O
08/07/23 08/08/23 08/09/23
06:59 06:59 06:59
Intake Total 635 / 635 1180 / 1180
Output Total 250 / 250 480 / 480
Balance 385 / 385 700 / 700
Review of Systems
-
History Source: Patient
Constitutional: Reports No Symptoms
EENT: Reports No Symptoms Reported
Respiratory: Reports No Symptoms
Cardiac: Reports No Symptoms
Physical Exam
-
General: No Apparent Distress
HEENT: Normocephalic
Respiratory: Clear to Auscultation
Cardiac: Regular Rhythm
GI: Soft and Nontender
Musculoskeletal: Edema, Right Lower Extrem (Right foot and heel dressed)
Neuro: Awake, Alert, Oriented and AO x 3
Psych: Calm
Data Reviewed
-
Total Time Spent with Patient (in minutes): 45
Labs: Labs Reviewed by me
[2023-08-08 09:19] LABS: Blood Urea Nitrogen 21 mg/dl (9-20); Calcium 8.7 mg/dl (8.4-10.2); Carbon Dioxide 25 mmol/L (22-30); Chloride 100 mmol/L (98-107); Estimated Creatinine Clearance 46 ml/min; Glucose 168 mg/dl (70-99); Potassium 4.4 mmol/L (3.5-5.1); Sodium 134 mmol/L (135-145); eGFR 42.57
--- NOTE | 2023-08-08 09:27 | PHA.VAN.FU ---
Vancomycin Assessment / Plan
- Assessment
Renal Function: SCR Increasing
WBC's are: WNL
In the past 24 hrs, patient has been: Afebrile
Concomitant Antimicrobials: piperacillin/tazobactam
- Assessment - Therapeutic Drug Monitoring
Random Level: 14.4 - drawn ~25.5H after previous dose of 1750mg
- Dosing Plan
Dosing by Level: Re-dose today (Vanc 1500mg)
- Monitoring Plan
Random Level: 08/08 06
- Follow Up
Pharmacy will continue to follow.
Vancomycin Follow UP
- -
Patient Age: 72
Patient Sex: Male
Vancomycin Day #: 3
Indication: Diabetic Foot
Requesting Provider: Mark Iglesias
Pertinent Antimicrobial Allergies:
no pertinent antibiotic allergies
Height / Weight:
Height 5 ft 6 in
Actual Weight 107.303 kg
Pertinent Past Medical History: DM, BMI ~38
- Vital Signs / Lab Results
Temp Pulse Resp BP Pulse Ox
97.8 F 57 18 176/89 99
08/08/23 07:55 08/08/23 07:55 08/08/23 07:55 08/08/23 07:55 08/08/23 07:55
Lab Results - Hematology
08/06/23 08/07/23 08/08/23
15:31 07:51 07:41
WBC 8.0 6.7 6.4
Lab Results - Chemistry
08/06/23 08/07/23 08/08/23
15:31 07:51 07:41
BUN 16 17 21 H
Creatinine 1.3 1.6 H 1.7 H
Estimated Creat Clear 61 49 46
Albumin 3.6
Microbiology Results
08/06/23 15:31 Blood Culture - Preliminary
Blood/Venous No Growth in 24 hours- Final report to follow
08/06/23 15:31 Blood Culture - Preliminary
Blood/Venous No Growth in 24 hours- Final report to follow
08/06/23 15:31 Wound Culture - Preliminary
Foot - Right Gram Stain - Preliminary
Therapeutic Drug Monitoring
Random Vancomycin 14.4 ug/ml 08/08/23 07:41
[2023-08-08] MEDS: NOVOLOG FLEXPEN 8 UNITS SC ×2 (09:48→12:41)
[2023-08-08] MEDS: NEURONTIN 100 MG PO ×3 (09:49→21:30)
[2023-08-08] MEDS: NOVOLOG FLEXPEN-LOW RESISTANCE 1 UNITS SC (09:49)
[2023-08-08] MEDS: ORETIC 12.5 MG PO (09:49)
[2023-08-08] MEDS: ZESTRIL 20 MG PO (09:49)
[2023-08-08] MEDS: ROXICODONE 7.5 MG PO ×4 (09:50→21:30)
--- NOTE | 2023-08-08 11:50 | PN.CDI ---
CDI
- -
CDI:
Physician Documentation Request
Admit Date: 08/06/23 17:32
Dear Doctor Brittany,
Patient admitted with right foot diabetic wound nonhealing/portion of calcaneus on MRI consistent with osteomyelitis
Clarify which of the following accurately represents the acuity of the osteomyelitis
____ Acute
Chronic
____ Other
Use of terms such as suspected, likely, concern for, or probable (associated with a specific diagnosis that is being evaluated, monitored, or treated as if it exists) are acceptable and can be coded in the inpatient setting, when documented at the
time of discharge.
Thank you,
Kanchan Noe RN, BSN
CDI Specialist
tiger text
Please use your independent medical judgment in providing your response.
--- NOTE | 2023-08-08 11:58 | W.CS.POD ---
Consult Summary - Podiatry
-
72 yo male seen at bedside with h/O diabetes and DPN presented to the [facility] with chronic large non healing ulcer to Rt heel, he sates that this ulcer started about 6 mos ago when he stepped on a piece of nail, he was seeing [facility] wound center
but not able to keep up his appointments due long distance for him to drive. He also could not do his dressings himself, His son was helping him for some time but now he is incarcerated and he has no help at home.
He is currently in no acute distress, denies any fever, chills.
PMH DM2, HTN, HLD, GERD, morbid obesity, chronic neuropathy on chronic oral opiates
Exam : B/L feet with mild edema. pulses not able to palpate possibly from edema, both feet are war, pink.
Loss of protective sensation b/l feet.
Rt heel large, granular ulcer about 8cm x 7 cm ,with keratotic wound edges noted, no drainage, no exposed bone, no signs of any abscess, no local erythema, no SOI noted, no necrotic tissue noted.
WBC count is WNL
MRi shows increased T2 signal possible osteomyelitis of calc tuberosity
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
Rt calcaneal osteomyelitis.
Diabetic neuropathy .
Obesity .
Plan : Cont Abx
ordered Non invasive vasculars studies to see any vascular compromise
Will request ID consult
Will schedule for possible Rt heel bone biopsy for possible field crop farmer Abx
Will order DH pressure relief shoe.
Will schedule for Bone biopsy tomorrow 08/08/23
Podiatry will follow
[2023-08-08 12:12] LABS: Glucose - Point of Care 275 mg/dl (70-99)
[2023-08-08] MEDS: NOVOLOG FLEXPEN-LOW RESISTANCE 3 UNITS SC (12:42)
[2023-08-08] MEDS: VANCOCIN 300 MG IV (14:26)
[2023-08-08] MEDS: VANCOCIN 300 ML IV (14:26)
[2023-08-08 15:55] VITALS: BP 174/88
--- NOTE | 2023-08-08 15:56 | CON.ID ---
Consultation
-
Date/Time Consultation Requested: August 08, 2023 1339
Date/Time Consultation Performed: August 08, 2023 1600
Requesting Provider: Dr. Pratik Treviño
Performing Provider: Dr. Rosita Mendez
Reason for Consultation: Right heel osteo
Chief Complaint / Past History
Chief Complaint
Right Leg swelling
History of Present Illness
72-year-old male with diabetes mellitus type 2, neuropathy who was sent to the ER from the wound care center on August 06 due to poor self-care and nonhealing right heel wound. He states that 2 to 3 months ago, he developed a wound at the bottom of
his right heel; he looked in his shoe and saw a sliver of an object sticking up inside his shoe. The wound did not heal. He was seeing a wound care doctor at [place]. His son was taking care of his wound up until about 2 weeks ago when he was
incarcerated. Since then patient was not able to care for himself. Over the past 2 days he noted that his right leg became more swollen and painful. He was seen at the wound care center yesterday who sent him to the ER. Patient noted to be in
poor hygiene with dirt and soil on his feet and hands. His hemoglobin A1c is 11.9. Large wound on the right heel. He was started on vancomycin and Zosyn. MRI was ordered which showed mild osteomyelitis at the calcaneus tuberosity. Podiatry is
planning for bone biopsy and culture tomorrow. Today he reports that the right leg swelling has improved. No fevers or chills at home. No purulent drainage from the wound.
Past History
Additional Past Medical History:
Diabetes mellitus type 2
Neuropathy
Hypertension
Dyslipidemia
GERD
Obesity BMI 38
Allergy History:
cat dander Allergy (Verified 08/06/23 13:11)
Unknown
dog dander Allergy (Verified 08/06/23 13:11)
Unknown
Medications Reviewed: Yes
Current Antibiotics:
Vancomycin
Zosyn
Social History
Tobacco: Non-Smoker
Alcohol: None
Drug: None
Living: Alone
Family History
Family History: Not Pertinent
Review of Systems
Review of Systems
General: Negative Fever, Chills or Change in Appetite
HEENT: Negative Sinus Problems, Headache or Pharyngitis
Cardiovascular: Negative Chest Pain
Respiratory: Negative Dyspnea or Cough
Gasteroenterology: Other (no diarrhea); Negative Nausea or Vomiting
Genital / Urological: Negative Dysuria or Flank Pain
Endocrine: Negative Weakness
Skin / Hair / Nails: Negative Rash
Neurological: Negative Headache or Dizziness
All systems: All other systems were reviewed and were negative
Vital Signs
Temp Pulse Resp BP Pulse Ox
97.8 F 57 18 176/89 99
08/08/23 07:55 08/08/23 09:49 08/08/23 07:55 08/08/23 09:49 08/08/23 11:48
Physical Exam
Physical Exam
Constitutional: No Acute Distress, Comfortable and Obese
Eyes: No Conjunctival Hemorrhage and Sclera Anicteric
Cardiovascular: Regular Rate and S1/S2
Pulmonary: Clear
Gastrointestinal: Soft, Non Tender, Non Distended and Normal Bowel Sounds
Extremities: Edema (RLE 2+ edema) and Venous Insufficiency; Negative Erythema
Wound: Other (Right heel 6 x 6 cm round wound with pink granulating tissue; center of the wound bone is palpable, not exposed)
Lab / Diagnostic Study Results
08/08/23 07:41
08/08/23 07:41
Abs Immat Gran (auto) 0.0 10^3/uL (0-0.05) 08/08/23 07:41
Absolute Neuts (auto) 3.3 10^3/uL (1.4-6.5) 08/08/23 07:41
Absolute Lymphs (auto) 2.2 10^3/uL (1.2-3.4) 08/08/23 07:41
Absolute Monos (auto) 0.5 10^3/uL (0.1-0.6) 08/08/23 07:41
Absolute Basos (auto) 0.1 10^3/uL (0-0.2) 08/08/23 07:41
Immature Gran % 0.3 % (0-0.5) 08/08/23 07:41
Neutrophils % 52.6 % (42.2-75.2) 08/08/23 07:41
Lymphocytes % 34.5 % (20.5-51.1) 08/08/23 07:41
Monocytes % 8.2 % (1.7-9.3) 08/08/23 07:41
Eosinophils % 3.6 % (0-6) 08/08/23 07:41
Basophils % 0.8 % (0-2) 08/08/23 07:41
Microbiology Results
Micro:
08/06/23 15:31 Blood Culture - Preliminary
Blood/Venous No Growth in 48 hours- Final report to follow
08/06/23 15:31 Blood Culture - Preliminary
Blood/Venous No Growth in 48 hours- Final report to follow
08/06/23 15:31 Wound Culture - Final
Foot - Right Gram negative bacilli
Staphylococcus aureus
Enterococcus species
Diptheroids
Gram Stain - Final
08/07/23 16:22 MRSA Screen - Pending
Nose
08/07/23 MRI RLE w wo contrast: Large soft tissue defect adjacent to the dorsal lateral margin of the calcaneus with mild calcaneal tuberosity osteomyelitis
Assessment / Plan
# Right heel osteomyelitis by MRI
# Right heel large non-healing wound, does not look grossly infected
# Poorly controlled DM2, A1c 12
-Arterial duplex normal
- For bone biopsy and culture tomorrow.
- Hold Vanco/Zosyn until after biopsy to increase culture yield.
--- NOTE | 2023-08-08 16:31 | CM ---
met with patient at bedside.cont iv vanco,iv zosyn,mri considtent with om,for resection of infected bone right diabetic foot wound.diabetic nurse cs,wound care cs.patient is non compliant at home with his insulin and dressing changes.son is
incarcerated and being released from [facility] end of august per [facility] [phone] who met with cm. plan:dc to snf facility when stable for discharge.
[2023-08-08 16:57] LABS: Glucose - Point of Care 243 mg/dl (70-99)
[2023-08-08] MEDS: NOVOLOG FLEXPEN 14 UNITS SC (17:20)
[2023-08-08] MEDS: NOVOLOG FLEXPEN-LOW RESISTANCE 2 UNITS SC (17:21)
[2023-08-08] MEDS: LOVENOX SC (17:24)
[2023-08-08 19:29] LABS: Hepatitis C Antibody Negative (Negative)
[2023-08-08 21:30] LABS: Glucose - Point of Care 274 mg/dl (70-99)
[2023-08-08] MEDS: LANTUS 0.400000000000000022 UNITS SC (21:30)
[2023-08-08 23:55] VITALS: BP 185/87
[2023-08-09] VITALS (12 sets, daily range): BP systolic 128–179; BP diastolic 71–83
[2023-08-09] MEDS: APRESOLINE 5 MG IV ×2 (00:28→21:35)
[2023-08-09 05:49] LABS: Glucose - Point of Care 200 mg/dl (70-99)
[2023-08-09 07:25] LABS: % Basophils 0.9 % (0-2); % Eosinophils 3.7 % (0-6); % Immature Granulocytes 0.5 % (0-0.5); % Monocytes 7.9 % (1.7-9.3); Absolute Basophils 0.1 10^3/uL (0-0.2); Absolute Eosinophils 0.2 10^3/uL (0-0.7); Absolute Lymphocytes 1.7 10^3/uL (1.2-3.4); Absolute Monocytes 0.5 10^3/uL (0.1-0.6); Absolute Neutrophils 3.3 10^3/uL (1.4-6.5); Hematocrit 35.2 % (39.0-52.0); Hemoglobin 11.9 g/dL (13.0-18.0); Mean Corp Hgb Conc. 33.8 g/dL (33.0-37.0); Mean Corpuscular Hgb 29.9 pg (27.0-31.0); Mean Corpuscular Volume 88.4 fL (80.0-94.0); Nucleated Red Blood Cells % 0 % (-); Platelet Count 217 10^3/uL (130-400); Red Blood Cell Count 3.98 10^6/uL (4.70-6.10); Red Cell Dist. Width 12.5 % (11.5-14.5); White Blood Cell Count 5.7 10^3/uL (4.8-10.8)
--- NOTE | 2023-08-09 07:40 | WOUNDNOTE ---
WOC RN note: Confirmed with Dr. Treviño to order a R DH pressure relief shoe from [facility]. Lawall consult order placed. Nursing confirmed his shoe size is 9.
--- NOTE | 2023-08-09 07:43 | PN.DE.MGMTRT ---
Insulin Management
- -
08/09/2023 Diabetes Management F/U:
Patient admitted 08/05 with R foot wound. Was being seen at [facility] wound [facility]. PMH: HTN, type2 diabetes, HLD, GERD, obesity, neuropathy. A1C 11.9%, Cr 1.6, eGFR 45.78. Prior to admission patient states he was taking Humulin N 45 units at 12MN
and 45 units at 12 noon with Regular insulin 30 units at either breakfast or lunch.
Patient is awake alert and oriented, resting in bed, able to discuss diabetes regimen. Patient states he is NPO for a test but is not sure what it is exactly.
Explained to pt that he is NPO for bone biopsy and resection of infected Right calcaneal bone later today.
Glucose improved after insulin was adjusted yesterday but remains >200, was 243 pre-dinner and 274 @HS last night, received 40 units of Lantus and Glucose was 200 this Am. Will increase HS Lantus to 42 units, and AC NovoLog to 16 units AC with low
corrective dose.
Emphasized need for optimal glucose control to promote would healing, explained to pt that his insulin regimen has changed and will be discharged home on basal bolus insulin, he asked where to get the insulin and was notified that scripts for new
insulin orders and pens will ne sent to his pharmacy at discharge.
Discussed with Nurse and reviewed diabetes plan of care. Will use corrective insulin while pt is NPO for procedures today.
Diabetes History
- -
Type of Diabetes: 2 requiring insulin
Pre-Admission Diabetes Regimen
08/08/23
07:41
Creatinine 1.7 H
Lab Results
Hemoglobin A1c 11.9 % (4.0-5.6) H 08/07/23 07:51
Insulin Pump Settings
IP Diabetes Regimen
08/08/23 08/08/23 08/08/23
07:41 12:10 16:55
Glucose 168 H
POC Glucose 275 H 243 H
08/08/23 08/09/23
21:29 05:48
Glucose
POC Glucose 274 H 200 H
Meal type: Dinner
Meal type: Lunch
Meal type: Breakfast
Amount consumed: 100%
Amount consumed: 100%
Amount consumed: 100%
Patient Education
[2023-08-09 07:53] LABS: Vancomycin Random 16.8 ug/ml
[2023-08-09 07:57] LABS: Blood Urea Nitrogen 22 mg/dl (9-20); Calcium 8.5 mg/dl (8.4-10.2); Carbon Dioxide 28 mmol/L (22-30); Chloride 102 mmol/L (98-107); Estimated Creatinine Clearance 49 ml/min; Glucose 200 mg/dl (70-99); Potassium 4.2 mmol/L (3.5-5.1); Sodium 134 mmol/L (135-145); eGFR 45.78
[2023-08-09] MEDS: NOVOLOG FLEXPEN-LOW RESISTANCE 2 UNITS SC (08:17)
[2023-08-09] MEDS: NOVOLOG FLEXPEN SC ×2 (09:15→16:41)
[2023-08-09] MEDS: ORETIC 12.5 MG PO (09:21)
[2023-08-09] MEDS: ROXICODONE 7.5 MG PO ×4 (09:21→21:34)
[2023-08-09] MEDS: ZESTRIL 20 MG PO (09:22)
[2023-08-09] MEDS: NEURONTIN 100 MG PO ×3 (09:22→21:34)
--- NOTE | 2023-08-09 09:34 | W.PN.HOSP.TC ---
Today's Communication/Plan
-
For bone biopsy and resection of infected Right calcaneal bone later today
Changing insulin to cover scale only throughout the day/holding mealtime
Again stressed importance of aftercare after discharge for proper wound healing
Assessment / Plan
Assessment / Plan
72-year-old male with a chronic right foot diabetic wound that has been ongoing since March 4 months ago after stepping on a nail/pin that went through his shoe. He has a chronic right heel wound since then and has been following at wound care
center at [facility] but stopped going 10 days ago because it was too far away. He also has a wound over his posterior right Achilles area. His feet and hands are dirt covered. He states he has not had a shower in over 1 week. He has not
taken his medications for the past 3 to 4 days. His son was helping him clean his wound, but over the past 3 weeks the wound has not been cleaned or dressing changed except 1 time 10 days ago. The patient reports his son has not been around due to
recent incarceration. The patient is unable to do himself at home and is looking for home care the patient has been unable to do these tasks by himself. He reports increased swelling and pain to the right lower extremity.
PMH DM2, HTN, HLD, GERD, morbid obesity, chronic neuropathy on chronic oral opiates
Physical Exam
General: Pain; No Fever or Chills
HEENT: NormoCephalic, Anicteric, Moist mucous membranes, PERRLA, [place] Conjunctivae and No Ptosis
Respiratory: Clear; No Wheezes, Rales or Rhonchi
Cardiac: S1/S2; No Murmur, Rub, Gallop or Peripheral Edema
Breast: Deferred by me
GI: Soft, Non Tender, Non Distended, Normal Bowel Sounds and No Hepatosplenomegaly
Rectal: Deferred by Provider
Genito-urinary: Deferred by me
Musculoskeletal: No Clubbing, No Cyanosis and Edema, Right Lower Extremity (Right foot and ankle, chronic large heel wound with open wound Achilles, surrounding erythema/swelling/both feet and hands covered in dirt); No Edema, Left Upper Extremity,
Edema, Right Upper Extremity or Edema, Left Lower Extremity
Skin: Warm, Dry and Rash
Neuro: AO x 3, No Motor Deficits and No Sensory Deficits; No Slurred Speech, Facial Droop or Tremors
Psych: Calm
#Right foot diabetic wound nonhealing/portion of calcaneus on MRI consistent with osteomyelitis
# Right heel wound wound x 4 months
-Follows with prior wound care [facility]
WBC 8, afebrile
-Consult Podiatry/surgical podiatry to perform removal of infected bone and margin today August 08
-Consult wound care
-Wound culture growing gram-negative bacilli, Staph aureus, Enterococcus and Diptheroids ,
blood culture x 2 negative growth x 48 hours
-IV vancomycin, Zosyn/MRSA screen proved negative/ID saw and holding further antibiotic coverage until after biopsy with to increase culture yield
-PT/OT/director case management consult
-
Foot x-ray right: Prominent soft tissue defect of the plantar dorsal margin of the calcaneal tuberosity without osteomyelitis no subcu emphysema or foreign body
MRI right foot:: Large soft tissue defect adjacent to the dorsal lateral margin of the calcaneus with mild calcaneal tuberosity osteomyelitis. No focal fluid collection or abscess
#Self-care deficit
-Consult case management for home care
# Chronic neuropathy on chronic opiates
-Continue oxycodone 7.5 mg p.o. 4 times daily
-Add some gabapentin
#DM2
Accu-Cheks with SSI, check HgbA1c
-Poorly compliant Accu-Cheks at home and insulin maintenance and had been on NPH U100
-consult diabetic HEATING ELEMENT WINDER/transition to Lantus insulin 50 units and 8 units NovoLog with meals
# Accelerated HTN/HTN�benign
155/100
-Patient has not taken his lisinopril/HCTZ 20-12.5 mg over the past few days
#HLD
-No current meds listed
#Morbid obesity due to excess calorie consumption�BMI 39.5 kg
Weight loss recommended, low-fat 1800 ADA diet
DVT prophylaxis
Subcu Lovenox
Full code
Anticipated Discharge: 24 - 48 hours
Subjective/Interval History
-
Date of Service: August 09, 2023
Remains pretty apathetic just also get things over with in relation to surgery I tried to instill on him the need for proper follow-up and home care that will eventually be on his own although we will try and arrange as much help for him at home as
we can on discharge.
Objective Data
-
Labs:
Laboratory Results
08/09/23
07:10
WBC 5.7
Hgb 11.9 L
Hct 35.2 L
Plt Count 217
Sodium 134 L
Potassium 4.2
Chloride 102
Carbon Dioxide 28
BUN 22 H
Creatinine 1.6 H
Glucose 200 H
Calcium 8.5
Vital Signs:
Vital Signs
Temp Pulse Resp BP Pulse Ox
97.3 F 62 14 171/81 99
08/09/23 06:00 08/09/23 09:22 08/09/23 06:00 08/09/23 09:22 08/09/23 06:00
I&O
08/08/23 08/09/23 08/10/23
06:59 06:59 06:59
Intake Total 1180 / 1180 1080 / 1080
Output Total 480 / 480 1450 / 1450
Balance 700 / 700 -370 / -370
Review of Systems
-
History Source: Patient
All other systems: Not reviewed unless documented
Psych: Reports Depressed
Physical Exam
-
General: Well Developed
HEENT: Normocephalic
Respiratory: Clear to Auscultation
Cardiac: Regular Rhythm
GI: Soft, Nontender and Nondistended
Psych: Calm
Data Reviewed
-
Labs: Labs Reviewed by me (Hemoglobin stable 11.9/white count stable 5.7/creatinine slightly up 1.6)
[2023-08-09 12:02] LABS: Glucose - Point of Care 173 mg/dl (70-99)
[2023-08-09] MEDS: NOVOLOG FLEXPEN-LOW RESISTANCE 1 UNITS SC (12:07)
--- NOTE | 2023-08-09 13:54 | W.PN.ID1 ---
Date of Service
Date of Service: August 09, 2023
Today's Communication
Resume Zosyn after bone biopsy.
Assessment / Plan
# Right heel osteomyelitis by MRI
# Right heel large non-healing wound, does not look grossly infected. Bone palpable on center.
# Poorly controlled DM2, A1c 12
-Arterial duplex normal
- For bone biopsy and culture today.
- Resume Zosyn after biopsy.
%Additional Past Medical History:
Diabetes mellitus type 2
Neuropathy
Hypertension
Dyslipidemia
GERD
Obesity BMI 38
Chief Complaint
-: Other (osteo)
Subjective / Review of Systems
No complaints
Vital Signs / Physical Exam
Vital Signs
Vital Signs
Temp Pulse Resp BP Pulse Ox
97.3 F 62 14 171/81 99
08/09/23 06:00 08/09/23 09:22 08/09/23 06:00 08/09/23 09:22 08/09/23 06:00
Physical Exam
Constitutional: No Acute Distress and Comfortable
Pulmonary: Clear
Gastrointestinal: Soft, Non Tender and Non Distended
Extremities: Edema (RLE 3+)
Neurological: AO x 3
Objective Data
Lab Data
Lab Results
08/09/23 07:10
08/09/23 07:10
Estimated Creat Clear 49 ml/min 08/09/23 07:10
Total Bilirubin 1.3 mg/dl (0.2-1.3) 08/06/23 15:31
AST 25 U/L (17-59) 08/06/23 15:31
ALT 20 U/L (0-50) 08/06/23 15:31
Alkaline Phosphatase 65 U/L (38-126) 08/06/23 15:31
Most recent labs reviewed.
Micro Results:
08/07/23 16:22 MRSA Screen - Final
Nose No Methicillin Resistant Staphylococcus aureus isolated.
08/06/23 15:31 Blood Culture - Preliminary
Blood/Venous No Growth in 48 hours- Final report to follow
08/06/23 15:31 Blood Culture - Preliminary
Blood/Venous No Growth in 48 hours- Final report to follow
08/06/23 15:31 Wound Culture - Final
Foot - Right Gram negative bacilli
Staphylococcus aureus
Enterococcus species
Diptheroids
Gram Stain - Final
08/07/23 MRI RLE w wo contrast: Large soft tissue defect adjacent to the dorsal lateral margin of the calcaneus with mild calcaneal tuberosity osteomyelitis
--- NOTE | 2023-08-09 14:38 | PN.CDI ---
CDI
- -
CDI:
Physician Documentation Request
Admit Date: 08/06/23 17:32
Dear Doctor Brittany,
Patient is admitted with Right foot diabetic wound nonhealing/portion of calcaneus on MRI consistent with osteomyelitis
Creatinine resulted as follows:
Laboratory Tests
08/06/23 08/07/23 08/08/23
15:31 07:51 07:41
Creatinine 1.3 1.6 H 1.7 H
08/09/23
07:10
Creatinine 1.6 H
Could you please provide a diagnosis that supports the above lab abnormalities and additional evaluation/ monitoring:
ALISA
Abnormal lab value clinically insignificant
Other
Criteria for ALISA*
1 Increase in serum creatinine by > or = to 0.3 mg/dL (> or = to 26.5 micromol/L) within 48 hours, OR
2 Increase in serum creatinine to > or = to 1.5 times baseline, which is known or presumed to have occurred within 7 days, OR
3 Urine volume < 0.5 nL/kg/hour for six hours
Use of terms such as suspected, likely, concern for, or probable (associated with a specific diagnosis that is being evaluated, monitored, or treated as if it exists) are acceptable and can be coded in the inpatient setting, when documented at the
time of discharge.
Thank you,
Kanchan Noe RN, BSN
CDI Specialist
tiger text
Please use your independent medical judgment in providing your response.
[2023-08-09 16:50] LABS: Glucose - Point of Care 141 mg/dl (70-99)
[2023-08-09] MEDS: NOVOLOG FLEXPEN-LOW RESISTANCE SC (17:01)
[2023-08-09] MEDS: ZOSYN IV (17:38)
--- NOTE | 2023-08-09 18:25 | W.SUR.POST ---
Surgical Immediate Post Op
Note
Pre Op Diagnosis: Rt heel osteomyelitis
Post Op Diagnosis: Same as above
Procedure Performed: Rt heel bone biopsy
Primary Surgeon: Dr. Pratik INFANTE
Secondary Surgeons: None
Anesthesia: MAc with local block
Estimated Blood Loss: 2 cc
Fluids: None
Drains/Shunts:N
Specimens/Cultures: Aerobic and anaerobic , bone from Rt calcaneus
Doppler/Duplex/Angio (Y/N): N
Complications: None
Operative Findings: Clean heel ulcer base, no necrosis, no purulence, no deep tracking
Pt stable IN PACu with Stable vital signs and intact vascular status to Rt foot
[2023-08-09 18:43] LABS: Glucose - Point of Care 124 mg/dl (70-99)
--- NOTE | 2023-08-09 19:30 | PTCARENOTE ---
Received pt from PACU- no complaints of pain- VS stable. Right foot Dressing CDI.
[2023-08-09] MEDS: LOVENOX SC (19:38)
--- NOTE | 2023-08-09 20:12 | PTCARENOTE ---
Patient refused to sign for Darco boot as it is not covered under insurance and the cost is $130.00.
[2023-08-09 21:16] LABS: Glucose - Point of Care 316 mg/dl (70-99)
[2023-08-09] MEDS: LANTUS 0.419999999999999984 UNITS SC (21:34)
[2023-08-09] MEDS: ZOSYN 50 IV (23:07)
--- NOTE | 2023-08-10 03:16 | PTCARENOTE ---
Foot dressing- oozing after biopsied. No complaints of pain. Reinforced pt dressing throughout night
[2023-08-10 03:28] VITALS: BP 139/61
[2023-08-10] MEDS: ZOSYN 50 IV ×4 (05:07→23:37)
[2023-08-10 07:27] LABS: Glucose - Point of Care 157 mg/dl (70-99)
[2023-08-10 07:30] VITALS: BP 182/95
[2023-08-10 08:47] LABS: Hematocrit 35.4 % (39.0-52.0); Hemoglobin 11.6 g/dL (13.0-18.0); Mean Corp Hgb Conc. 32.8 g/dL (33.0-37.0); Mean Corpuscular Hgb 29.3 pg (27.0-31.0); Mean Corpuscular Volume 89.4 fL (80.0-94.0); Mean Platelet Volume 9.4 fL (7.4-10.4); Platelet Count 250 10^3/uL (130-400); Red Blood Cell Count 3.96 10^6/uL (4.70-6.10); Red Cell Dist. Width 12.6 % (11.5-14.5); White Blood Cell Count 6.1 10^3/uL (4.8-10.8)
[2023-08-10] MEDS: NOVOLOG FLEXPEN-LOW RESISTANCE 1 UNITS SC (08:51)
[2023-08-10] MEDS: NOVOLOG FLEXPEN 16 UNITS SC ×3 (08:55→17:00)
[2023-08-10] MEDS: ROXICODONE 7.5 MG PO ×4 (08:56→21:37)
[2023-08-10] MEDS: NEURONTIN 100 MG PO ×3 (08:56→21:37)
[2023-08-10] MEDS: ZESTRIL 20 MG PO (08:56)
[2023-08-10] MEDS: ORETIC 12.5 MG PO (08:56)
[2023-08-10 09:14] LABS: ALT (SGPT) 19 U/L (0-50); AST (SGOT) 29 U/L (17-59); Albumin 3.2 g/dl (3.5-5.0); Alkaline Phosphatase 60 U/L (38-126); Blood Urea Nitrogen 21 mg/dl (9-20); Calcium 8.5 mg/dl (8.4-10.2); Carbon Dioxide 27 mmol/L (22-30); Chloride 100 mmol/L (98-107); Estimated Creatinine Clearance 46 ml/min; Glucose 160 mg/dl (70-99); Potassium 4.3 mmol/L (3.5-5.1); Sodium 134 mmol/L (135-145); Total Bilirubin 0.7 mg/dl (0.2-1.3); Total Protein 6.3 g/dl (6.3-8.2); eGFR 42.57
--- NOTE | 2023-08-10 09:40 | W.PN.HOSP.TC ---
Addendum entered and electronically signed by Lei Soto MD 08/10/23 14:10:
Acute kidney injury
Original Note:
Today's Communication/Plan
-
Awaiting culture results margins and bone biopsy
Continue Zosyn
Increase Lantus/just mealtime as warranted
Assessment / Plan
Assessment / Plan
72-year-old male with a chronic right foot diabetic wound that has been ongoing since March 4 months ago after stepping on a nail/pin that went through his shoe. He has a chronic right heel wound since then and has been following at wound care
center at [facility] but stopped going 10 days ago because it was too far away. He also has a wound over his posterior right Achilles area. His feet and hands are dirt covered. He states he has not had a shower in over 1 week. He has not
taken his medications for the past 3 to 4 days. His son was helping him clean his wound, but over the past 3 weeks the wound has not been cleaned or dressing changed except 1 time 10 days ago. The patient reports his son has not been around due to
recent incarceration. The patient is unable to do himself at home and is looking for home care the patient has been unable to do these tasks by himself. He reports increased swelling and pain to the right lower extremity.
PMH DM2, HTN, HLD, GERD, morbid obesity, chronic neuropathy on chronic oral opiates
Physical Exam
General: Pain; No Fever or Chills
HEENT: NormoCephalic, Anicteric, Moist mucous membranes, PERRLA, [place] Conjunctivae and No Ptosis
Respiratory: Clear; No Wheezes, Rales or Rhonchi
Cardiac: S1/S2; No Murmur, Rub, Gallop or Peripheral Edema
Breast: Deferred by me
GI: Soft, Non Tender, Non Distended, Normal Bowel Sounds and No Hepatosplenomegaly
Rectal: Deferred by Provider
Genito-urinary: Deferred by me
Musculoskeletal: No Clubbing, No Cyanosis and Edema, Right Lower Extremity (Right foot and ankle, chronic large heel wound with open wound Achilles, surrounding erythema/swelling/both feet and hands covered in dirt); No Edema, Left Upper Extremity,
Edema, Right Upper Extremity or Edema, Left Lower Extremity
Skin: Warm, Dry and Rash
Neuro: AO x 3, No Motor Deficits and No Sensory Deficits; No Slurred Speech, Facial Droop or Tremors
Psych: Calm
#Right foot diabetic wound nonhealing/portion of calcaneus on MRI consistent with osteomyelitis/now post bone biopsy performed August 08
-Awaiting culture results and bone margin result
# Right heel wound wound x 4 months
-Follows with prior wound care [facility]
WBC 8, afebrile
-Consult Podiatry/surgical podiatry
-Consult wound care
-Wound culture growing gram-negative bacilli, Staph aureus, Enterococcus and Diptheroids ,
blood culture x 2 negative growth x 48 hours
- Zosyn/MRSA screen proved negative
-PT/OT/family independence case manager consult
-
Foot x-ray right: Prominent soft tissue defect of the plantar dorsal margin of the calcaneal tuberosity without osteomyelitis no subcu emphysema or foreign body
MRI right foot:: Large soft tissue defect adjacent to the dorsal lateral margin of the calcaneus with mild calcaneal tuberosity osteomyelitis. No focal fluid collection or abscess
#Self-care deficit
-Consult case management for home care
# Chronic neuropathy on chronic opiates
-Continue oxycodone 7.5 mg p.o. 4 times daily
-Add some gabapentin
#DM2
Accu-Cheks with SSI, check HgbA1c
-Poorly compliant Accu-Cheks at home and insulin maintenance and had been on NPH U100
-consult diabetic ENGINEER AND GEOLOGIST/transition to Lantus insulin 50 units and 8 units NovoLog with meals
# Accelerated HTN/HTN�benign
155/100
-Patient has not taken his lisinopril/HCTZ 20-12.5 mg over the past few days
-Now improved during hospital
#HLD
-No current meds listed
#Morbid obesity due to excess calorie consumption�BMI 39.5 kg
Weight loss recommended, low-fat 1800 ADA diet
DVT prophylaxis
Subcu Lovenox
Full code
Anticipated Discharge: 24 - 48 hours
Subjective/Interval History
-
Date of Service: August 10, 2023
Which more interactive today with conversation admits to some pain referred to the fourth but ameliorated somewhat with usage of oxycodone. He does admit to some constipation.
Objective Data
-
Labs:
Laboratory Results
08/10/23
05:29
WBC 6.1
Hgb 11.6 L
Hct 35.4 L
Plt Count 250
Sodium 134 L
Potassium 4.3
Chloride 100
Carbon Dioxide 27
BUN 21 H
Creatinine 1.7 H
Glucose 160 H
Calcium 8.5
Total Bilirubin 0.7
AST 29
ALT 19
Alkaline Phosphatase 60
Vital Signs:
Vital Signs
Temp Pulse Resp BP Pulse Ox
97.1 F 55 16 139/61 95
08/10/23 07:30 08/10/23 08:56 08/10/23 07:30 08/10/23 08:56 08/10/23 07:30
I&O
08/09/23 08/10/23 08/11/23
06:59 06:59 06:59
Intake Total 1080 / 1080 700 / 700
Output Total 1450 / 1450 600 / 600
Balance -370 / -370 100 / 100
Review of Systems
-
History Source: Patient
All other systems: Reviewed and negative
Constitutional: Reports No Symptoms
EENT: Reports No Symptoms Reported
Respiratory: Reports No Symptoms
Cardiac: Reports No Symptoms
Skin: Reports Rash and Sores
Physical Exam
-
General: Well Developed
HEENT: Normocephalic
Respiratory: Clear to Auscultation
Cardiac: Regular Rhythm
Musculoskeletal: Edema, Right Lower Extrem (Thank you left over heel)
Neuro: Awake
Data Reviewed
-
Total Time Spent with Patient (in minutes): 56
Labs: Labs Reviewed by me
[2023-08-10] MEDS: APRESOLINE 5 MG IV (11:38)
[2023-08-10] MEDS: MIRALAX 17 GRAMS PO (11:44)
[2023-08-10] MEDS: SENOKOT-S 1 TABLET PO (11:44)
[2023-08-10 11:49] VITALS: BP 176/91
[2023-08-10 12:27] LABS: Glucose - Point of Care 223 mg/dl (70-99)
[2023-08-10] MEDS: NOVOLOG FLEXPEN-LOW RESISTANCE 2 UNITS SC ×2 (12:40→17:00)
--- NOTE | 2023-08-10 12:58 | W.PN.POD ---
Today's Communication
Today's Communication
Patient stable per podiatry,
Assessment / Plan
-
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
S/P Rt heel bone biopsy 08/09/23
Rt calcaneal osteomyelitis.
Diabetic neuropathy .
Obesity .
Plan : Cont Abx per ID
Non invasive vasculars studies reviewed, LT side WNL, Rt side possible infrapopliteal disease
Will have him see vascular surgery after discharge
PT can wt bear to Rt forefoot with walker and DH pressure relief shoe.
PT will need VN for daily dressing changes with Collagen and dry gauze dressings To Rt foot , sean wrap compression
HE can f/u in my office after discharge in a wk
Subjective
Chief Complaint
Rt heel non healing diabetic ulcer
Subjective
Patient seen at bedside, offers no new complaints, NO Rt foot pain, no Rt calf pain. Some trike through bleeding in Rt foot surgical dressings, no fever, chills.
Objective
Temp Pulse Resp BP Pulse Ox
97.9 F 64 18 176/91 97
08/10/23 11:49 08/10/23 11:49 08/10/23 11:49 08/10/23 11:49 08/10/23 11:49
08/10/23 05:29
08/10/23 05:29
Vital Signs and Lab results were reviewed.
Rt foot intact vascular status
Rt heel large granular, clean ulcer, bone biopsy site is clean, dry, no active drainage, no SOI, no palpable bone. no exposed bone, No signs of any deep abscess noted.
[2023-08-10 15:21] VITALS: BP 143/91
[2023-08-10 16:44] LABS: Glucose - Point of Care 240 mg/dl (70-99)
[2023-08-10] MEDS: LOVENOX 40 MG SC (17:01)
[2023-08-10 21:23] LABS: Glucose - Point of Care 288 mg/dl (70-99)
[2023-08-10] MEDS: LANTUS 0.440000000000000002 UNITS SC (21:37)
[2023-08-10 23:12] VITALS: BP 170/77
[2023-08-10 23:48] VITALS: BP 166/79
[2023-08-11 04:06] VITALS: BP 157/75
[2023-08-11] MEDS: ZOSYN 50 IV ×3 (05:24→18:19)
[2023-08-11 07:06] LABS: Hematocrit 37.8 % (39.0-52.0); Hemoglobin 12.6 g/dL (13.0-18.0); Mean Corp Hgb Conc. 33.3 g/dL (33.0-37.0); Mean Corpuscular Hgb 29.2 pg (27.0-31.0); Mean Corpuscular Volume 87.5 fL (80.0-94.0); Mean Platelet Volume 9.4 fL (7.4-10.4); Platelet Count 261 10^3/uL (130-400); Red Blood Cell Count 4.32 10^6/uL (4.70-6.10); Red Cell Dist. Width 12.7 % (11.5-14.5); White Blood Cell Count 6.3 10^3/uL (4.8-10.8)
[2023-08-11 07:21] LABS: Glucose - Point of Care 129 mg/dl (70-99)
[2023-08-11 07:35] LABS: Blood Urea Nitrogen 29 mg/dl (9-20); Calcium 8.9 mg/dl (8.4-10.2); Carbon Dioxide 25 mmol/L (22-30); Chloride 99 mmol/L (98-107); Estimated Creatinine Clearance 39 ml/min; Glucose 123 mg/dl (70-99); Potassium 4.5 mmol/L (3.5-5.1); Sodium 135 mmol/L (135-145); eGFR 35.02
[2023-08-11 07:40] VITALS: BP 170/83
[2023-08-11] MEDS: NOVOLOG FLEXPEN 16 UNITS SC ×3 (07:52→18:17)
[2023-08-11] MEDS: NOVOLOG FLEXPEN-LOW RESISTANCE SC ×2 (07:52→18:17)
[2023-08-11] MEDS: ORETIC 12.5 MG PO (07:53)
[2023-08-11] MEDS: MIRALAX 17 GRAMS PO (07:53)
[2023-08-11] MEDS: ZESTRIL 20 MG PO (07:53)
[2023-08-11] MEDS: NEURONTIN 100 MG PO ×3 (07:53→22:23)
[2023-08-11] MEDS: ROXICODONE 7.5 MG PO ×4 (07:54→22:24)
--- NOTE | 2023-08-11 10:16 | W.PN.HOSP.TC ---
Addendum entered and electronically signed by Lei Soto MD 08/11/23 10:27:
With creatinine climbing to 2.0 with usual baseline 1.4 will need to discontinue lisinopril hydrochlorothiazide for his hypertension which he may or may not been compliant with as an outpatient.
Will place on amlodipine and as needed hydralazine for now
Continue to monitor BMP may have to adjust Zosyn dosing
Original Note:
Today's Communication/Plan
-
Waiting on growth from margins of any and sensitivities on Staph aureus
Continue Zosyn
Blood sugar management
Assessment / Plan
Assessment / Plan
72-year-old male with a chronic right foot diabetic wound that has been ongoing since March 4 months ago after stepping on a nail/pin that went through his shoe. He has a chronic right heel wound since then and has been following at wound care
center at [facility] but stopped going 10 days ago because it was too far away. He also has a wound over his posterior right Achilles area. His feet and hands are dirt covered. He states he has not had a shower in over 1 week. He has not
taken his medications for the past 3 to 4 days. His son was helping him clean his wound, but over the past 3 weeks the wound has not been cleaned or dressing changed except 1 time 10 days ago. The patient reports his son has not been around due to
recent incarceration. The patient is unable to do himself at home and is looking for home care the patient has been unable to do these tasks by himself. He reports increased swelling and pain to the right lower extremity.
PMH DM2, HTN, HLD, GERD, morbid obesity, chronic neuropathy on chronic oral opiates
Physical Exam
General: Pain; No Fever or Chills
HEENT: NormoCephalic, Anicteric, Moist mucous membranes, PERRLA, [place] Conjunctivae and No Ptosis
Respiratory: Clear; No Wheezes, Rales or Rhonchi
Cardiac: S1/S2; No Murmur, Rub, Gallop or Peripheral Edema
Breast: Deferred by me
GI: Soft, Non Tender, Non Distended, Normal Bowel Sounds and No Hepatosplenomegaly
Rectal: Deferred by Provider
Genito-urinary: Deferred by me
Musculoskeletal: No Clubbing, No Cyanosis and Edema, Right Lower Extremity (Right foot and ankle, chronic large heel wound with open wound Achilles, surrounding erythema/swelling/both feet and hands covered in dirt); No Edema, Left Upper Extremity,
Edema, Right Upper Extremity or Edema, Left Lower Extremity
Skin: Warm, Dry and Rash
Neuro: AO x 3, No Motor Deficits and No Sensory Deficits; No Slurred Speech, Facial Droop or Tremors
Psych: Calm
#Right foot diabetic wound nonhealing/portion of calcaneus on MRI consistent with osteomyelitis/now post bone biopsy performed August 08
-Awaiting culture results and bone margin result/initial growth of Staph aureus awaiting sensitivity
# Right heel wound wound x 4 months
-Follows with prior wound care [facility]
WBC 8, afebrile
-Consult Podiatry/surgical podiatry
-Consult wound care
-Wound culture growing gram-negative bacilli, Staph aureus, Enterococcus and Diptheroids ,
blood culture x 2 negative growth x 48 hours
- Zosyn/MRSA screen proved negative
-PT/OT/residential case manager consult
-
Foot x-ray right: Prominent soft tissue defect of the plantar dorsal margin of the calcaneal tuberosity without osteomyelitis no subcu emphysema or foreign body
MRI right foot:: Large soft tissue defect adjacent to the dorsal lateral margin of the calcaneus with mild calcaneal tuberosity osteomyelitis. No focal fluid collection or abscess
#Self-care deficit
-Consult case management for home care
# Chronic neuropathy on chronic opiates
-Continue oxycodone 7.5 mg p.o. 4 times daily
-Add some gabapentin
#DM2
Accu-Cheks with SSI, check HgbA1c
-Poorly compliant Accu-Cheks at home and insulin maintenance and had been on NPH U100
-consult diabetic GLOBAL LEAD/transition to Lantus insulin 50 units and 8 units NovoLog with meals
# Accelerated HTN/HTN�benign
155/100
-Patient has not taken his lisinopril/HCTZ 20-12.5 mg over the past few days
-Now improved during hospital
#HLD
-No current meds listed
#Morbid obesity due to excess calorie consumption�BMI 39.5 kg
Weight loss recommended, low-fat 1800 ADA diet
DVT prophylaxis
Subcu Lovenox
Full code
Anticipated Discharge: Within 24 hours
Subjective/Interval History
-
Date of Service: August 11, 2023
Awoke him from sleep in no distress not too much complaints of pain
Objective Data
-
Labs:
Laboratory Results
08/11/23
05:40
WBC 6.3
Hgb 12.6 L
Hct 37.8 L
Plt Count 261
Sodium 135
Potassium 4.5
Chloride 99
Carbon Dioxide 25
BUN 29 H
Creatinine 2.0 H
Glucose 123 H
Calcium 8.9
Vital Signs:
Vital Signs
Temp Pulse Resp BP Pulse Ox
98.1 F 66 18 170/83 96
08/11/23 07:40 08/11/23 07:53 08/11/23 07:40 08/11/23 07:53 08/11/23 07:40
I&O
08/10/23 08/11/23 08/12/23
06:59 06:59 06:59
Intake Total 700 / 700 600 / 600
Output Total 600 / 600 900 / 900
Balance 100 / 100 -300 / -300
Review of Systems
-
History Source: Patient
Respiratory: Reports No Symptoms
Cardiac: Reports No Symptoms
Physical Exam
-
General: Well Developed
HEENT: Normocephalic
Respiratory: Clear to Auscultation
GI: Soft
Musculoskeletal: Edema, Right Lower Extrem (Gauze dressing on foot)
Psych: Calm
[2023-08-11 11:11] VITALS: BP 157/75
[2023-08-11] MEDS: NORVASC 5 MG PO (11:21)
[2023-08-11 11:44] LABS: Glucose - Point of Care 205 mg/dl (70-99)
[2023-08-11] MEDS: NOVOLOG FLEXPEN-LOW RESISTANCE 2 UNITS SC (11:46)
[2023-08-11 15:36] VITALS: BP 168/98
[2023-08-11 17:09] LABS: Glucose - Point of Care 125 mg/dl (70-99)
[2023-08-11] MEDS: LOVENOX 40 MG SC (18:17)
--- NOTE | 2023-08-11 18:38 | PTCARENOTE ---
Pt questioned about refusal of [facility] boot and he states that he has given it some thought and he is not agreeable to use one despite cost. Lilia consult resent by equal employment opportunity officer and will pass on in report for tomorrow.
[2023-08-11 21:23] LABS: Glucose - Point of Care 171 mg/dl (70-99)
[2023-08-11] MEDS: LANTUS 0.440000000000000002 UNITS SC (22:26)
[2023-08-11 23:35] VITALS: BP 162/79
[2023-08-12] MEDS: ZOSYN 50 IV ×2 (00:05→05:12)
[2023-08-12 07:13] LABS: Glucose - Point of Care 120 mg/dl (70-99)
[2023-08-12 07:30] VITALS: BP 150/83
--- NOTE | 2023-08-12 08:06 | PN.DE.MGMTRT ---
Insulin Management
- -
08/12/2023 Diabetes Management F/U:
Patient admitted 08/05 with R foot wound due to Rt calcaneal osteomyelitis. Was being seen at [facility] wound [facility]. PMH: HTN, type2 diabetes, HLD, GERD, obesity, neuropathy. A1C 11.9%, Cr 1.6, eGFR 45.78. Prior to admission patient states he was
taking Humulin N 45 units at 12MN and 45 units at 12 noon with Regular insulin 30 units at either breakfast or lunch.
Patient is awake alert and oriented, resting in bed, able to discuss diabetes regimen.
He is POD #3 s/p Rt heel bone biopsy 08/09/23
His insulin dose was adjusted over the weekend due to persistent Hyperglycemia
FBG 120 this AM, premeal range 120-125. Cr 1.6-->2.1 today.
Will make no changes to current regimen: Cont Lantus to 44 units @ HS, and AC NovoLog to 16 units AC with low corrective dose.
Discussed with Nurse and reviewed diabetes plan of care. Will use corrective insulin while pt is NPO for procedures today.
Diabetes History
- -
Type of Diabetes: 2 requiring insulin
Pre-Admission Diabetes Regimen
Lab Results
Hemoglobin A1c 11.9 % (4.0-5.6) H 08/07/23 07:51
Insulin Pump Settings
IP Diabetes Regimen
08/11/23 08/11/23 08/11/23
11:43 17:00 21:21
POC Glucose 205 H 125 H 171 H
08/12/23
07:03
POC Glucose 120 H
Meal type: Lunch
Amount consumed: 100%
Patient Education
[2023-08-12] MEDS: NOVOLOG FLEXPEN 16 UNITS SC ×3 (08:15→17:42)
[2023-08-12] MEDS: NOVOLOG FLEXPEN-LOW RESISTANCE SC (08:16)
[2023-08-12] MEDS: NEURONTIN 100 MG PO ×3 (08:16→22:04)
[2023-08-12] MEDS: ROXICODONE 7.5 MG PO ×4 (08:17→22:02)
[2023-08-12] MEDS: NORVASC 5 MG PO (08:17)
[2023-08-12] MEDS: MIRALAX 17 GRAMS PO (08:18)
--- NOTE | 2023-08-12 09:07 | W.PN.POD ---
Today's Communication
Today's Communication
Pt stable per podiatry to D/C
Assessment / Plan
-
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
S/P Rt heel bone biopsy 08/09/23
Rt calcaneal osteomyelitis.
Diabetic neuropathy .
Obesity .
Plan : Cont Abx per ID
Non invasive vasculars studies reviewed, LT side WNL, Rt side possible infrapopliteal disease
Will have him see vascular surgery after discharge
PT can wt bear to Rt forefoot with walker and DH pressure relief shoe.
PT will need VN for daily dressing changes with Collagen and dry gauze dressings To Rt foot , sean wrap compression
HE can f/u in my office after discharge in a wk
Subjective
Chief Complaint
Rt heel non healing diabetic ulcer
Subjective
Patient seen at bedside, offers no new complaints, NO Rt foot pain, no Rt calf pain. Some trike through bleeding in Rt foot surgical dressings, no fever, chills.
Objective
Temp Pulse Resp BP Pulse Ox
98.1 F 68 18 150/83 97
08/12/23 07:30 08/12/23 07:30 08/12/23 07:30 08/12/23 07:30 08/12/23 07:30
08/11/23 05:40
Vital Signs and Lab results were reviewed.
Rt foot intact vascular status
Rt heel large granular, clean ulcer, bone biopsy site is clean, dry, no active drainage, no SOI, no palpable bone. no exposed bone, No signs of any deep abscess noted.
[2023-08-12 09:45] LABS: Blood Urea Nitrogen 28 mg/dl (9-20); Calcium 8.8 mg/dl (8.4-10.2); Carbon Dioxide 27 mmol/L (22-30); Chloride 98 mmol/L (98-107); Estimated Creatinine Clearance 37 ml/min; Glucose 246 mg/dl (70-99); Potassium 4.4 mmol/L (3.5-5.1); Sodium 133 mmol/L (135-145); eGFR 33.03
--- NOTE | 2023-08-12 10:48 | CM ---
Addendum entered by Rebecca Barrera 08/13/23 08:07:
TC from [employer]- updates to Janelle Do
Addendum entered by Rebecca Barrera 08/12/23 15:08:
Per [employer] fax updates to [phone]
Addendum entered by Rebecca Barrera 08/12/23 14:37:
Availity Certified in total
Start date 08/13/23, End date 08/25/23
Certification # [id number]
Addendum entered by Rebecca Barrera 08/12/23 13:53:
Patient accepted by [facility]
NPI# [id number]
Dr Partida NPI#[id number]
will initiate [employer] auth
Addendum entered by Rebecca Barrera 08/12/23 12:46:
Plan: skilled rehab when stable.
Await bed availability and insurance auth.
Patient will require wound care and IV anbx.
Original Note:
Patient seen bedside.
Await updated PT/OT recommendations.
Await boot from [facility], patient agreeable to costs.
Patient agreeable to [facility] for assist with wound care when ready for d/c.
Plan: await PT/OT recommendations.
--- NOTE | 2023-08-12 11:10 | WOUNDNOTE ---
MILLY RN NOTE: Dressing changed by Dr. Treviño this morning, wound clean, no need to change dressing again per Dr. Greene Updated wound care orders and discharge instructions as discussed with Dr. Greene
[2023-08-12 11:48] LABS: Glucose - Point of Care 189 mg/dl (70-99)
[2023-08-12] MEDS: NOVOLOG FLEXPEN-LOW RESISTANCE 1 UNITS SC (12:26)
--- NOTE | 2023-08-12 12:27 | W.PN.HOSP.TC ---
Today's Communication/Plan
-
Monitor vitals
See plan
Await boot from [facility]
now on ancef
pain control
Follow final cultures
Check UA
Check urine lytes
Assessment / Plan
Assessment / Plan
72-year-old male with a chronic right foot diabetic wound that has been ongoing since March 4 months ago after stepping on a nail/pin that went through his shoe. He has a chronic right heel wound since then and has been following at wound care
center at [facility] but stopped going 10 days ago because it was too far away. He also has a wound over his posterior right Achilles area. His feet and hands are dirt covered. He states he has not had a shower in over 1 week. He has not
taken his medications for the past 3 to 4 days. His son was helping him clean his wound, but over the past 3 weeks the wound has not been cleaned or dressing changed except 1 time 10 days ago. The patient reports his son has not been around due to
recent incarceration. The patient is unable to do himself at home and is looking for home care the patient has been unable to do these tasks by himself. He reports increased swelling and pain to the right lower extremity.
PMH DM2, HTN, HLD, GERD, morbid obesity, chronic neuropathy on chronic oral opiates
Physical Exam
General: Pain; No Fever or Chills
HEENT: NormoCephalic, Anicteric, Moist mucous membranes, PERRLA, [place] Conjunctivae and No Ptosis
Respiratory: Clear; No Wheezes, Rales or Rhonchi
Cardiac: S1/S2; No Murmur, Rub, Gallop or Peripheral Edema
Breast: Deferred by me
GI: Soft, Non Tender, Non Distended, Normal Bowel Sounds and No Hepatosplenomegaly
Rectal: Deferred by Provider
Genito-urinary: Deferred by me
Musculoskeletal: No Clubbing, No Cyanosis and Edema, Right Lower Extremity (Right foot and ankle, chronic large heel wound with open wound Achilles, surrounding erythema/swelling/both feet and hands covered in dirt); No Edema, Left Upper Extremity,
Edema, Right Upper Extremity or Edema, Left Lower Extremity
Skin: Warm, Dry and Rash
Neuro: AO x 3, No Motor Deficits and No Sensory Deficits; No Slurred Speech, Facial Droop or Tremors
Psych: Calm
#Right foot diabetic wound nonhealing/portion of calcaneus on MRI consistent with osteomyelitis/now post bone biopsy performed August 08
-Awaiting culture results and bone margin result/initial growth of Staph aureus awaiting sensitivity
# Right heel wound wound x 4 months
-Follows with prior wound care [facility]
-Podiatry following,can wt bear to Rt forefoot with walker and DH pressure relief shoe.
-Consult wound care
-Wound culture growing gram-negative bacilli, Staph aureus, Enterococcus and Diptheroids ,
blood culture x 2 negative growth x 48 hours
was on ancef , now narrowed down to Ancef
-PT/OT/senior case manager consult
-
Foot x-ray right: Prominent soft tissue defect of the plantar dorsal margin of the calcaneal tuberosity without osteomyelitis no subcu emphysema or foreign body
MRI right foot:: Large soft tissue defect adjacent to the dorsal lateral margin of the calcaneus with mild calcaneal tuberosity osteomyelitis. No focal fluid collection or abscess
#Self-care deficit
-Consult case management for home care
# Chronic neuropathy on chronic opiates
-Continue oxycodone 7.5 mg p.o. 4 times daily
-Add some gabapentin
Renal insufficiency; appears patient does have component of CKD
And HCTZ/lisinopril stopped, now on amlodipine
Continue to monitor creatinine
Bladder scan
check Ua; check fena
#DM2
Accu-Cheks with SSI
-Poorly compliant Accu-Cheks at home and insulin maintenance and had been on NPH U100
cw insulin
# Accelerated HTN/HTN�benign
Lisinopril/HCTZ stopped, now on amlodipine
#HLD
-No current meds listed
#Morbid obesity due to excess calorie consumption�BMI 39.5 kg
Weight loss recommended, low-fat 1800 ADA diet
DVT prophylaxis
heparin
Full code
I spent a total of 52 minutes with the patient or on the floor. More than 50% of this time involved counseling and coordination of care.
Anticipated Discharge: 24 - 48 hours
Subjective/Interval History
-
Date of Service: August 12, 2023
denies nausea
Objective Data
-
Labs:
Laboratory Results
08/12/23
08:41
Sodium 133 L
Potassium 4.4
Chloride 98
Carbon Dioxide 27
BUN 28 H
Creatinine 2.1 H
Glucose 246 H
Calcium 8.8
Vital Signs:
Vital Signs
Temp Pulse Resp BP Pulse Ox
98.1 F 68 18 150/83 97
08/12/23 07:30 08/12/23 07:30 08/12/23 07:30 08/12/23 07:30 08/12/23 08:10
I&O
08/11/23 08/12/23 08/13/23
06:59 06:59 06:59
Intake Total 600 / 600 510 / 510
Output Total 900 / 900 1000 / 1000
Balance -300 / -300 -490 / -490
--- NOTE | 2023-08-12 13:07 | W.PN.ID1 ---
Date of Service
Date of Service: August 12, 2023
Today's Communication
Se below.
Assessment / Plan
# Right heel osteomyelitis by MRI
# Right heel large non-healing wound, does not look grossly infected. Bone palpable on center.
# Poorly controlled DM2, A1c 12
-Arterial duplex normal
- 08/09/23 s/p right heel bone biopsy,
Cx: MSSA
Path pending
- Replace Zosyn (d4) with cefazolin.
- Since heel wound does not appear infected, no exposed bone, can be more conservative - treat with IV cefazolin 2gIV q8 while at rehab. When dc home, transition to doxycycline 100mg po bid through 09/26/2023.
Infusion sheet submitted to community case manager.
%Additional Past Medical History:
Diabetes mellitus type 2
Neuropathy
Hypertension
Dyslipidemia
GERD
Obesity BMI 38
Chief Complaint
-: Other (osteo)
Subjective / Review of Systems
He feels well.
Vital Signs / Physical Exam
Vital Signs
Vital Signs
Temp Pulse Resp BP Pulse Ox
98.1 F 68 18 150/83 97
08/12/23 07:30 08/12/23 07:30 08/12/23 07:30 08/12/23 07:30 08/12/23 08:10
Physical Exam
Constitutional: No Acute Distress and Comfortable
Pulmonary: Clear
Gastrointestinal: Soft, Non Tender and Non Distended
Extremities: Edema (RLE edema decreased)
Neurological: AO x 3
Objective Data
Lab Data
Lab Results
08/11/23 05:40
08/12/23 08:41
Estimated Creat Clear 37 ml/min 08/12/23 08:41
Total Bilirubin 0.7 mg/dl (0.2-1.3) 08/10/23 05:29
AST 29 U/L (17-59) 08/10/23 05:29
ALT 19 U/L (0-50) 08/10/23 05:29
Alkaline Phosphatase 60 U/L (38-126) 08/10/23 05:29
Most recent labs reviewed.
Micro Results:
08/09/23 18:09 Tissue Culture - Preliminary
Heel - Right Staphylococcus haemolyticus
Gram Stain - Preliminary
08/09/23 18:09 Wound Culture - Preliminary
Heel - Right S aureus-Methicillin Sensitive
Gram Stain - Preliminary
08/06/23 15:31 Blood Culture - Final
Blood/Venous No Growth - Final Report
08/06/23 15:31 Blood Culture - Final
Blood/Venous No Growth - Final Report
08/09/23 18:09 Anaerobic Culture - Preliminary
Heel - Right Culture pending. Anaerobic cultures are examined after 3
days incubation. Additional information to follow.
08/09/23 18:09 Anaerobic Culture - Preliminary
Heel - Right Culture pending. Anaerobic cultures are examined after 3
days incubation. Additional information to follow.
08/07/23 16:22 MRSA Screen - Final
Nose No Methicillin Resistant Staphylococcus aureus isolated.
08/06/23 15:31 Wound Culture - Final
Foot - Right Gram negative bacilli
Staphylococcus aureus
Enterococcus species
Diptheroids
Gram Stain - Final
08/07/23 MRI RLE w wo contrast: Large soft tissue defect adjacent to the dorsal lateral margin of the calcaneus with mild calcaneal tuberosity osteomyelitis
[2023-08-12] MEDS: ANCEF 10 IV ×2 (14:43→22:02)
[2023-08-12 15:23] VITALS: BP 157/90; PULSE 73; O2SAT 99
[2023-08-12 15:24] VITALS: BP 157/90; PULSE 73; O2SAT 99
[2023-08-12 15:27] VITALS: BP 157/90
[2023-08-12 17:43] LABS: Glucose - Point of Care 217 mg/dl (70-99)
[2023-08-12] MEDS: NOVOLOG FLEXPEN-LOW RESISTANCE 2 UNITS SC (17:43)
[2023-08-12 21:54] LABS: Glucose - Point of Care 264 mg/dl (70-99)
[2023-08-12] MEDS: HEPARIN 5000 UNITS SC (22:00)
[2023-08-12] MEDS: LANTUS 0.440000000000000002 UNITS SC (22:02)
[2023-08-12 23:56] VITALS: BP 162/82
[2023-08-13 03:38] VITALS: BP 165/85
[2023-08-13 04:49] LABS: Urine Albumin Trace (Neg - Trace); Urine Bilirubin Negative (Negative); Urine Character Clear (Clear); Urine Color Yellow; Urine Glucose 1+ (Negative); Urine Ketone Negative (Negative); Urine Leukocyte Negative (Negative); Urine Nitrite Negative (Negative); Urine Occult Blood Negative (Negative); Urine Specific Gravity 1.015 (<1.030); Urine Urobilinogen Negative (Neg - 1+)
[2023-08-13 05:11] LABS: Urine Sodium 76 mmol/L (30-90)
[2023-08-13 05:13] LABS: Blood Urea Nitrogen 36 mg/dl (9-20); Calcium 8.6 mg/dl (8.4-10.2); Carbon Dioxide 32 mmol/L (22-30); Chloride 98 mmol/L (98-107); Estimated Creatinine Clearance 34 ml/min; Glucose 200 mg/dl (70-99); Potassium 4.5 mmol/L (3.5-5.1); Sodium 134 mmol/L (135-145); eGFR 29.62
[2023-08-13] MEDS: ANCEF 10 IV ×2 (06:13→13:34)
--- NOTE | 2023-08-13 07:43 | PN.DE.MGMTRT ---
Insulin Management
- -
08/13/2023 Diabetes Management Follow up:
Patient admitted 08/05 with R foot wound due to Rt calcaneal osteomyelitis. Was being seen at [facility] wound [facility]. PMH: HTN, type2 diabetes, HLD, GERD, obesity, neuropathy. A1C 11.9%, Cr 1.6, eGFR 45.78. Prior to admission patient states he was
taking Humulin N 45 units at 12MN and 45 units at 12 noon with Regular insulin 30 units at either breakfast or lunch.
Patient awakens easily, seems disinterested in diabetes care, discussed the importance of taking insulin as ordered and testing glucose and reporting to primary care doctor.
POD #4 s/p Rt heel bone biopsy 08/09/23
His insulin dose was adjusted over the weekend due to persistent Hyperglycemia
FBG 120 this AM, premeal range 120-125. Cr 2.3 today.
Pre meal glucose trended up to 217 pre dinner, will increase AC novolog to 18 units with low corrective dose. Will continue Lantus to 44 units @ HS.
Discussed with Nurse and reviewed diabetes plan of care.
Diabetes History
- -
Type of Diabetes: 2 requiring insulin
Pre-Admission Diabetes Regimen
08/12/23 08/13/23
08:41 04:24
Creatinine 2.1 H 2.3 H
Lab Results
Hemoglobin A1c 11.9 % (4.0-5.6) H 08/07/23 07:51
Insulin Pump Settings
IP Diabetes Regimen
08/12/23 08/12/23 08/12/23
08:41 11:39 17:40
Glucose 246 H
POC Glucose 189 H 217 H
08/12/23 08/13/23
21:53 04:24
Glucose 200 H
POC Glucose 264 H
Meal type: Lunch
Meal type: Breakfast
Amount consumed: 100%
Amount consumed: 100%
Patient Education
[2023-08-13 08:22] VITALS: BP 178/86
[2023-08-13 08:48] LABS: Glucose - Point of Care 185 mg/dl (70-99)
[2023-08-13] MEDS: NOVOLOG FLEXPEN-LOW RESISTANCE 1 UNITS SC (08:50)
[2023-08-13] MEDS: MIRALAX 17 GRAMS PO (08:51)
[2023-08-13] MEDS: HEPARIN 5000 UNITS SC ×2 (08:51→21:08)
[2023-08-13] MEDS: NEURONTIN 100 MG PO ×3 (08:51→22:01)
[2023-08-13] MEDS: ROXICODONE 7.5 MG PO ×4 (08:52→22:00)
[2023-08-13] MEDS: NORVASC 10 MG PO (08:52)
[2023-08-13] MEDS: NOVOLOG FLEXPEN SC (08:57)
[2023-08-13 08:58] VITALS: BP 146/95
[2023-08-13] MEDS: NORVASC PO (09:05)
[2023-08-13] MEDS: NOVOLOG FLEXPEN 18 UNITS SC ×3 (09:10→18:20)
--- NOTE | 2023-08-13 11:05 | CM ---
Addendum entered by Rebecca Barrera 08/13/23 15:48:
Per ID, no IV anbx needed at skilled rehab.
Original Note:
Patient seen bedside.
Await medical clearance for transfer to SNF.
Patient on Ancef IV q 8.
Availity Certified in total, also TC from [facility]
Start date 08/13/23, End date 08/25/23
Certification # [id number]
updates to Janelle oD,
Plan: [facility] when medically stable.
--- NOTE | 2023-08-13 11:55 | W.PN.HOSP.TC ---
Today's Communication/Plan
-
Monitor vital signs
see plan
Check renal ultrasound, if creatinine continues to rise then will need nephrology evaluation
Continue with antibiotics
PT/OT
Assessment / Plan
Assessment / Plan
72-year-old male with a chronic right foot diabetic wound that has been ongoing since March 4 months ago after stepping on a nail/pin that went through his shoe. He has a chronic right heel wound since then and has been following at wound care
center at [facility] but stopped going 10 days ago because it was too far away. He also has a wound over his posterior right Achilles area. His feet and hands are dirt covered. He states he has not had a shower in over 1 week. He has not
taken his medications for the past 3 to 4 days. His son was helping him clean his wound, but over the past 3 weeks the wound has not been cleaned or dressing changed except 1 time 10 days ago. The patient reports his son has not been around due to
recent incarceration. The patient is unable to do himself at home and is looking for home care the patient has been unable to do these tasks by himself. He reports increased swelling and pain to the right lower extremity.
PMH DM2, HTN, HLD, GERD, morbid obesity, chronic neuropathy on chronic oral opiates
Physical Exam
General: Pain; No Fever or Chills
HEENT: NormoCephalic, Anicteric, Moist mucous membranes, PERRLA, [place] Conjunctivae and No Ptosis
Respiratory: Clear; No Wheezes, Rales or Rhonchi
Cardiac: S1/S2; No Murmur, Rub, Gallop or Peripheral Edema
Breast: Deferred by me
GI: Soft, Non Tender, Non Distended, Normal Bowel Sounds and No Hepatosplenomegaly
Rectal: Deferred by Provider
Genito-urinary: Deferred by me
Musculoskeletal: No Clubbing, No Cyanosis and Edema, Right Lower Extremity (Right foot and ankle, chronic large heel wound with open wound Achilles, surrounding erythema/swelling/both feet and hands covered in dirt); No Edema, Left Upper Extremity,
Edema, Right Upper Extremity or Edema, Left Lower Extremity
Skin: Warm, Dry and Rash
Neuro: AO x 3, No Motor Deficits and No Sensory Deficits; No Slurred Speech, Facial Droop or Tremors
Psych: Calm
#Right foot diabetic wound nonhealing/portion of calcaneus on MRI consistent with osteomyelitis/now post bone biopsy performed August 08
-Awaiting culture results and bone margin result/initial growth of Staph aureus awaiting sensitivity
# Right heel wound wound x 4 months
-Follows with prior wound care [facility]
-Podiatry following,can wt bear to Rt forefoot with walker and DH pressure relief shoe.
-Consult wound care
-Wound culture growing gram-negative bacilli, Staph aureus, Enterococcus and Diptheroids ,
blood culture x 2 negative growth x 48 hours
was on ancef , now narrowed down to Ancef
-PT/OT/medical case worker consult; need SNF
-
Foot x-ray right: Prominent soft tissue defect of the plantar dorsal margin of the calcaneal tuberosity without osteomyelitis no subcu emphysema or foreign body
MRI right foot:: Large soft tissue defect adjacent to the dorsal lateral margin of the calcaneus with mild calcaneal tuberosity osteomyelitis. No focal fluid collection or abscess
#Self-care deficit
-Consult case management for home care
# Chronic neuropathy on chronic opiates
-Continue oxycodone 7.5 mg p.o. 4 times daily
-Add some gabapentin
Renal insufficiency; appears patient does have component of CKD
HCTZ/lisinopril stopped, now on amlodipine, increase to 10 mg
Continue to monitor creatinine
Bladder scan
check Ua wihtout UTI; fena suggest indermediate; check renal US; if creatinine continues to rise then will ask nephrology to evaluate
#DM2
Accu-Cheks with SSI
-Poorly compliant Accu-Cheks at home and insulin maintenance and had been on NPH U100
cw insulin
# Accelerated HTN/HTN�benign
Lisinopril/HCTZ stopped, now on amlodipine
#HLD
-No current meds listed
#Morbid obesity due to excess calorie consumption�BMI 39.5 kg
Weight loss recommended, low-fat 1800 ADA diet
DVT prophylaxis
heparin
Full code
I spent a total of 53 minutes with the patient or on the floor. More than 50% of this time involved counseling and coordination of care.
Anticipated Discharge: 24 - 48 hours
Subjective/Interval History
-
Date of Service: August 13, 2023
denies pain
Objective Data
-
Labs:
Laboratory Results
08/13/23
04:24
Sodium 134 L
Potassium 4.5
Chloride 98
Carbon Dioxide 32 H
BUN 36 H
Creatinine 2.3 H
Glucose 200 H
Calcium 8.6
Vital Signs:
Vital Signs
Temp Pulse Resp BP Pulse Ox
98.1 F 59 18 146/95 97
08/13/23 08:22 08/13/23 08:22 08/13/23 08:22 08/13/23 08:58 08/13/23 08:22
I&O
08/12/23 08/13/23 08/14/23
06:59 06:59 06:59
Intake Total 510 / 510 420 / 420
Output Total 1000 / 1000 810 / 810
Balance -490 / -490 -390 / -390
[2023-08-13 12:28] LABS: Glucose - Point of Care 235 mg/dl (70-99)
[2023-08-13] MEDS: NOVOLOG FLEXPEN-LOW RESISTANCE 2 UNITS SC (13:33)
[2023-08-13] MEDS: FLUSH (NSS) 2 FLUSH IV (13:35)
--- NOTE | 2023-08-13 15:07 | W.PN.ID1 ---
Date of Service
Date of Service: August 13, 2023
Today's Communication
DC cefazolin.
Transition to po doxycycline x 2 weeks.
Assessment / Plan
# Right heel osteomyelitis by MRI, ruled out by bone bx.
# Right heel large non-healing wound, does not look infected. Bone biopsy: negative for osteo.
# Poorly controlled DM2, A1c 12
# ALISA
- 08/09/23 s/p right heel bone biopsy,
Bone Cx: MSSA x 2
Path: bone and periosteum with remodeling, negative for acute inflammation.
- No need for IV cefazolin.
DC midline at time of discharge
- Treat with 2 weeks of doxycycline 100mg po bid.
%Additional Past Medical History:
Diabetes mellitus type 2
Neuropathy
Hypertension
Dyslipidemia
GERD
Obesity BMI 38
Chief Complaint
-: Other (osteo)
Subjective / Review of Systems
Feels well.
Vital Signs / Physical Exam
Vital Signs
Vital Signs
Temp Pulse Resp BP Pulse Ox
98.1 F 59 18 146/95 97
08/13/23 08:22 08/13/23 08:22 08/13/23 08:22 08/13/23 08:58 08/13/23 08:22
Physical Exam
Constitutional: No Acute Distress
Gastrointestinal: Soft, Non Tender and Non Distended
Extremities: Negative Edema
Objective Data
Lab Data
Lab Results
08/11/23 05:40
08/13/23 04:24
Estimated Creat Clear 34 ml/min 08/13/23 04:24
Total Bilirubin 0.7 mg/dl (0.2-1.3) 08/10/23 05:29
AST 29 U/L (17-59) 08/10/23 05:29
ALT 19 U/L (0-50) 08/10/23 05:29
Alkaline Phosphatase 60 U/L (38-126) 08/10/23 05:29
Most recent labs reviewed.
Micro Results:
08/09/23 18:09 Anaerobic Culture - Preliminary
Heel - Right Culture pending. Anaerobic cultures are examined after 3
days incubation. Additional information to follow.
08/09/23 18:09 Anaerobic Culture - Preliminary
Heel - Right Culture pending. Anaerobic cultures are examined after 3
days incubation. Additional information to follow.
08/09/23 18:09 Tissue Culture - Preliminary
Heel - Right Staphylococcus haemolyticus
S aureus-Methicillin Sensitive
Gram Stain - Preliminary
08/09/23 18:09 Wound Culture - Preliminary
Heel - Right S aureus-Methicillin Sensitive
Gram Stain - Preliminary
08/06/23 15:31 Blood Culture - Final
Blood/Venous No Growth - Final Report
08/06/23 15:31 Blood Culture - Final
Blood/Venous No Growth - Final Report
08/07/23 16:22 MRSA Screen - Final
Nose No Methicillin Resistant Staphylococcus aureus isolated.
08/06/23 15:31 Wound Culture - Final
Foot - Right Gram negative bacilli
Staphylococcus aureus
Enterococcus species
Diptheroids
Gram Stain - Final
08/07/23 MRI RLE w wo contrast: Large soft tissue defect adjacent to the dorsal lateral margin of the calcaneus with mild calcaneal tuberosity osteomyelitis
Care Review
Plan reviewed with: Physician (Dr. Hernandez)
[2023-08-13 16:26] VITALS: BP 154/79
[2023-08-13 16:54] LABS: Glucose - Point of Care 120 mg/dl (70-99)
[2023-08-13] MEDS: NOVOLOG FLEXPEN-LOW RESISTANCE SC (18:21)
[2023-08-13] MEDS: VIBRAMYCIN 100 MG PO (21:07)
[2023-08-13 21:36] LABS: Glucose - Point of Care 205 mg/dl (70-99)
[2023-08-13] MEDS: LANTUS 0.440000000000000002 UNITS SC (22:02)
[2023-08-13 23:41] VITALS: BP 177/90
[2023-08-14 00:58] VITALS: BP 169/88
[2023-08-14 04:07] VITALS: BP 153/85
[2023-08-14 05:53] LABS: Blood Urea Nitrogen 42 mg/dl (9-20); Calcium 8.8 mg/dl (8.4-10.2); Carbon Dioxide 29 mmol/L (22-30); Chloride 100 mmol/L (98-107); Estimated Creatinine Clearance 37 ml/min; Glucose 180 mg/dl (70-99); Potassium 4.5 mmol/L (3.5-5.1); Sodium 135 mmol/L (135-145); eGFR 33.03
--- NOTE | 2023-08-14 07:30 | PN.DE.MGMTRT ---
Insulin Management
- -
08/14/2023 Diabetes Management Follow up:
Patient admitted 08/05 with R foot wound due to Rt calcaneal osteomyelitis. Was being seen at [place] [facility]. PMH: HTN, type2 diabetes, HLD, GERD, obesity, neuropathy. A1C 11.9%, Cr 1.6, eGFR 45.78. Prior to admission patient states he was
taking Humulin N 45 units at 12MN and 45 units at 12 noon with Regular insulin 30 units at either breakfast or lunch.
Patient sleeping, awakened easily, alert and oriented. Able to discuss diabetes plan of care.
POD #5 s/p Rt heel bone biopsy 08/09/23
AC novolog increased yesterday to 18 units. Glucose did trend down to 120 pre dinner, up to 205 @ hs.
FBG 180 venous this AM. Will continue lantus 44 units @ hs. Will increase novolog to 20 units with breakfast and dinner and continue 18 units with lunch. Cr 2.1, eGFR 33.03 today.
Discussed with Nurse and reviewed diabetes plan of care.
Diabetes History
- -
Type of Diabetes: 2 requiring insulin
Pre-Admission Diabetes Regimen
08/14/23
05:16
Creatinine 2.1 H
Lab Results
Hemoglobin A1c 11.9 % (4.0-5.6) H 08/07/23 07:51
Insulin Pump Settings
IP Diabetes Regimen
08/13/23 08/13/23 08/13/23
08:37 12:19 16:51
Glucose
POC Glucose 185 H 235 H 120 H
08/13/23 08/14/23
21:35 05:16
Glucose 180 H
POC Glucose 205 H
Meal type: Breakfast
Amount consumed: 100%
Patient Education
[2023-08-14 08:10] LABS: Glucose - Point of Care 169 mg/dl (70-99)
[2023-08-14 08:16] VITALS: BP 180/85
[2023-08-14] MEDS: NOVOLOG FLEXPEN-LOW RESISTANCE 1 UNITS SC ×2 (09:27→17:55)
[2023-08-14] MEDS: NOVOLOG FLEXPEN 20 UNITS SC ×2 (09:27→17:54)
[2023-08-14] MEDS: VIBRAMYCIN 100 MG PO ×2 (09:28→21:04)
[2023-08-14] MEDS: HEPARIN 5000 UNITS SC ×2 (09:28→21:07)
[2023-08-14] MEDS: MIRALAX 17 GRAMS PO (09:28)
[2023-08-14] MEDS: NORVASC 10 MG PO (09:28)
[2023-08-14] MEDS: NEURONTIN 100 MG PO ×3 (09:29→22:01)
[2023-08-14] MEDS: ROXICODONE 7.5 MG PO ×4 (09:29→22:01)
[2023-08-14] MEDS: APRESOLINE 5 MG PO ×3 (09:30→22:01)
[2023-08-14] MEDS: NOVOLOG FLEXPEN SC (09:47)
--- NOTE | 2023-08-14 11:59 | CM ---
Addendum entered by Halie Farrar 08/14/23 16:05:
Pending renal/bladder ultrasound result (report pending) patient may be cleared for discharge today
Original Note:
[facility] from [facility] called this morning; a bed is available today if patient is stable for discharge.
Attending notified; patient's Creat too high; may be stable for discharge this afternoon; will let us know
Plan: discharge to [facility] [place] when medically stable
--- NOTE | 2023-08-14 12:37 | W.PN.HOSP.TC ---
Today's Communication/Plan
-
Monitor vital signs see plan
Has good urine output
Monitor creatinine
Renal ultrasound pending, if normal then likely can be discharged to SNF
Continue with insulin
Continue with antibiotics
Assessment / Plan
Assessment / Plan
72-year-old male with a chronic right foot diabetic wound that has been ongoing since March 4 months ago after stepping on a nail/pin that went through his shoe. He has a chronic right heel wound since then and has been following at wound care
center at [facility] but stopped going 10 days ago because it was too far away. He also has a wound over his posterior right Achilles area. His feet and hands are dirt covered. He states he has not had a shower in over 1 week. He has not
taken his medications for the past 3 to 4 days. His son was helping him clean his wound, but over the past 3 weeks the wound has not been cleaned or dressing changed except 1 time 10 days ago. The patient reports his son has not been around due to
recent incarceration. The patient is unable to do himself at home and is looking for home care the patient has been unable to do these tasks by himself. He reports increased swelling and pain to the right lower extremity.
PMH DM2, HTN, HLD, GERD, morbid obesity, chronic neuropathy on chronic oral opiates
Physical Exam
General: Pain; No Fever or Chills
HEENT: NormoCephalic, Anicteric, Moist mucous membranes, PERRLA, [place] Conjunctivae and No Ptosis
Respiratory: Clear; No Wheezes, Rales or Rhonchi
Cardiac: S1/S2; No Murmur, Rub, Gallop or Peripheral Edema
GI: Soft, Non Tender, Non Distended, Normal Bowel Sounds and No Hepatosplenomegaly
Musculoskeletal: Edema, Right Lower Extremity (Right foot and ankle, chronic large heel wound with open wound Achilles, surrounding erythema/swelling/both feet and hands covered in dirt)
Skin: Warm, Dry and Rash
Neuro: AO x 3, No Motor Deficits
Psych: Calm
#Right foot diabetic wound nonhealing/portion of calcaneus on MRI consistent with osteomyelitis/now post bone biopsy performed August 08 which suggest no infection; ID changed abx to PO; po doxycycline x 2 weeks.
# Right heel wound wound x 4 months
-Follows with prior wound care [facility]
-Podiatry following,can wt bear to Rt forefoot with walker and DH pressure relief shoe.
-Consult wound care
-Wound culture growing gram-negative bacilli, Staph aureus, Enterococcus and Diptheroids ,
blood culture x 2 negative growth x 48 hours
was on ancef , now narrowed down to Ancef
-PT/OT/outpatient case manager consult; need SNF
Foot x-ray right: Prominent soft tissue defect of the plantar dorsal margin of the calcaneal tuberosity without osteomyelitis no subcu emphysema or foreign body
MRI right foot:: Large soft tissue defect adjacent to the dorsal lateral margin of the calcaneus with mild calcaneal tuberosity osteomyelitis. No focal fluid collection or abscess
#Self-care deficit
-Consult case management for home care
# Chronic neuropathy on chronic opiates
-Continue oxycodone 7.5 mg p.o. 4 times daily
-Add some gabapentin
Renal insufficiency; appears patient does have component of CKD
HCTZ/lisinopril stopped, now on amlodipine, increase to 10 mg; started hydralazine
Continue to monitor creatinine
Bladder scan, discussed with nursing and patient is not retaining
check Ua without UTI; fena suggest indermediate; check renal US; if creatinine continues to rise then will ask nephrology to evaluate
cr now 2.1; will dc to snf if BMP there if renal US looks ok.
#DM2
Accu-Cheks with SSI
-Poorly compliant Accu-Cheks at home and insulin maintenance and had been on NPH U100
cw insulin
# Accelerated HTN/HTN�benign
Lisinopril/HCTZ stopped, now on amlodipine
#HLD
-No current meds listed
#Morbid obesity due to excess calorie consumption�BMI 39.5 kg
Weight loss recommended, low-fat 1800 ADA diet
DVT prophylaxis
heparin
Full code
Anticipated Discharge: Within 24 hours
Subjective/Interval History
-
Date of Service: August 14, 2023
denies pain
Objective Data
-
Labs:
Laboratory Results
08/14/23
05:16
Sodium 135
Potassium 4.5
Chloride 100
Carbon Dioxide 29
BUN 42 H
Creatinine 2.1 H
Glucose 180 H
Calcium 8.8
Vital Signs:
Vital Signs
Temp Pulse Resp BP Pulse Ox
98.3 F 54 18 180/85 95
08/14/23 08:16 08/14/23 08:16 08/14/23 08:16 08/14/23 08:16 08/14/23 08:16
I&O
08/13/23 08/14/23 08/15/23
06:59 06:59 06:59
Intake Total 420 / 420 1080 / 1080
Output Total 810 / 810 650 / 650
Balance -390 / -390 430 / 430
[2023-08-14 12:46] LABS: Glucose - Point of Care 262 mg/dl (70-99)
[2023-08-14] MEDS: NOVOLOG FLEXPEN-LOW RESISTANCE 3 UNITS SC (13:15)
[2023-08-14] MEDS: NOVOLOG FLEXPEN 18 UNITS SC (13:16)
[2023-08-14] MEDS: APRESOLINE 5 MG IV (13:24)
[2023-08-14] MEDS: FLUSH (NSS) 2 FLUSH IV (13:25)
[2023-08-14 16:11] VITALS: BP 144/93
[2023-08-14 16:55] LABS: Glucose - Point of Care 195 mg/dl (70-99)
[2023-08-14 21:10] LABS: Glucose - Point of Care 162 mg/dl (70-99)
[2023-08-14] MEDS: LANTUS 0.440000000000000002 UNITS SC (22:02)
[2023-08-14 23:48] VITALS: BP 171/94
[2023-08-15 03:52] VITALS: BP 159/77
[2023-08-15 05:39] LABS: Blood Urea Nitrogen 39 mg/dl (9-20); Carbon Dioxide 30 mmol/L (22-30); Chloride 100 mmol/L (98-107); Estimated Creatinine Clearance 41 ml/min; Glucose 181 mg/dl (70-99); Potassium 4.6 mmol/L (3.5-5.1); Sodium 133 mmol/L (135-145); eGFR 37.25
[2023-08-15 07:26] LABS: Glucose - Point of Care 196 mg/dl (70-99)
--- NOTE | 2023-08-15 07:33 | PN.DE.MGMTRT ---
Insulin Management
- -
08/15/2023 Diabetes Management Follow up:
Patient admitted 08/05 with R foot wound due to Rt calcaneal osteomyelitis. Was being seen at [place] wound [facility]. PMH: HTN, type2 diabetes, HLD, GERD, obesity, neuropathy. A1C 11.9%, Cr 1.6, eGFR 45.78. Prior to admission patient states he was
taking Humulin N 45 units at 12MN and 45 units at 12 noon with Regular insulin 30 units at either breakfast or lunch.
Patient awake, alert and oriented. Able to discuss diabetes plan of care.
POD #6 s/p Rt heel bone biopsy 08/09/23
AC novolog increased yesterday to 20 units with breakfast and dinner and 18 units with lunch. Glucose range yesterday 165 to 262. Fasting glucose 3 consecutive AM's > 180, will increase hs lantus to 47 units.
CR improved, 1.9 today, eGFR 37.25
Discussed with Nurse and reviewed diabetes plan of care.
Diabetes History
- -
Type of Diabetes: 2 requiring insulin
Pre-Admission Diabetes Regimen
08/15/23
04:55
Creatinine 1.9 H
Lab Results
Hemoglobin A1c 11.9 % (4.0-5.6) H 08/07/23 07:51
Insulin Pump Settings
IP Diabetes Regimen
08/14/23 08/14/23 08/14/23
08:09 12:25 16:52
Glucose
POC Glucose 169 H 262 H 195 H
08/14/23 08/15/23 08/15/23
21:09 04:55 07:25
Glucose 181 H
POC Glucose 162 H 196 H
Patient Education
[2023-08-15 08:07] VITALS: BP 158/78
[2023-08-15] MEDS: NEURONTIN 100 MG PO ×2 (09:24→15:19)
[2023-08-15] MEDS: NORVASC 10 MG PO (09:25)
[2023-08-15] MEDS: MIRALAX 17 GRAMS PO (09:25)
[2023-08-15] MEDS: VIBRAMYCIN 100 MG PO (09:25)
[2023-08-15] MEDS: HEPARIN 5000 UNITS SC (09:25)
[2023-08-15] MEDS: ROXICODONE 7.5 MG PO ×3 (09:25→17:00)
[2023-08-15] MEDS: APRESOLINE 5 MG PO ×2 (09:25→15:19)
[2023-08-15] MEDS: NOVOLOG FLEXPEN 20 UNITS SC ×2 (09:26→16:01)
[2023-08-15] MEDS: NOVOLOG FLEXPEN-LOW RESISTANCE 1 UNITS SC (09:26)
[2023-08-15 11:44] LABS: Glucose - Point of Care 238 mg/dl (70-99)
--- NOTE | 2023-08-15 11:53 | W.PN.HOSP.TC ---
Addendum entered and electronically signed by Jacek Hernandez MD 08/15/23 12:44:
Time of discharge 38-minutes
Original Note:
Today's Communication/Plan
-
Monitor vital signs and see plan
Continue with antibiotics
Administer Tracy, once patient is more ambulatory at [facility] then can do voiding trial
Start Flomax
dc today
Assessment / Plan
Assessment / Plan
72-year-old male with a chronic right foot diabetic wound that has been ongoing since March 4 months ago after stepping on a nail/pin that went through his shoe. He has a chronic right heel wound since then and has been following at wound care
center at [facility] but stopped going 10 days ago because it was too far away. He also has a wound over his posterior right Achilles area. His feet and hands are dirt covered. He states he has not had a shower in over 1 week. He has not
taken his medications for the past 3 to 4 days. His son was helping him clean his wound, but over the past 3 weeks the wound has not been cleaned or dressing changed except 1 time 10 days ago. The patient reports his son has not been around due to
recent incarceration. The patient is unable to do himself at home and is looking for home care the patient has been unable to do these tasks by himself. He reports increased swelling and pain to the right lower extremity.
PMH DM2, HTN, HLD, GERD, morbid obesity, chronic neuropathy on chronic oral opiates
Physical Exam
General: Pain; No Fever or Chills
HEENT: NormoCephalic, Anicteric, Moist mucous membranes, PERRLA, [place] Conjunctivae and No Ptosis
Respiratory: Clear; No Wheezes, Rales or Rhonchi
Cardiac: S1/S2; No Murmur, Rub, Gallop or Peripheral Edema
GI: Soft, Non Tender, Non Distended, Normal Bowel Sounds and No Hepatosplenomegaly
Musculoskeletal: Edema, Right Lower Extremity (Right foot and ankle, chronic large heel wound with open wound Achilles, surrounding erythema/swelling/both feet and hands covered in dirt)
Skin: Warm, Dry and Rash
Neuro: AO x 3, No Motor Deficits
Psych: Calm
#Right foot diabetic wound nonhealing/portion of calcaneus on MRI consistent with osteomyelitis/now post bone biopsy performed August 08 which suggest no infection; ID changed abx to PO; po doxycycline x 2 weeks.
# Right heel wound wound x 4 months
-Follows with prior wound care [facility]
-Podiatry following,can wt bear to Rt forefoot with walker and DH pressure relief shoe.
-Consult wound care
-Wound culture growing gram-negative bacilli, Staph aureus, Enterococcus and Diptheroids ,
blood culture x 2 negative growth x 48 hours
was on ancef , now narrowed down to Ancef
-PT/OT/telehealth case manager consult; need SNF
Foot x-ray right: Prominent soft tissue defect of the plantar dorsal margin of the calcaneal tuberosity without osteomyelitis no subcu emphysema or foreign body
MRI right foot:: Large soft tissue defect adjacent to the dorsal lateral margin of the calcaneus with mild calcaneal tuberosity osteomyelitis. No focal fluid collection or abscess
#Self-care deficit
-Consult case management for home care
# Chronic neuropathy on chronic opiates
-Continue oxycodone 7.5 mg p.o. 4 times daily
-Add some gabapentin
Urinary retention
Renal ultrasound with renal cyst
Suspect patient has a large prostate, start Flomax
Already got straight cath multiple times will administer Tracy. Once patient is more ambulatory at SNF then can do voiding
Renal insufficiency; appears patient does have component of CKD
HCTZ/lisinopril stopped, now on amlodipine, increase to 10 mg; started hydralazine
Continue to monitor creatinine
check Ua without UTI; fena suggest indermediate; if creatinine continues to rise then will ask nephrology to evaluate
cr now 1.9; will dc to snf with tracy and repeat BMP. creatinine slowly getting better. Suspect some could be from retention
#DM2
Accu-Cheks with SSI
-Poorly compliant Accu-Cheks at home and insulin maintenance and had been on NPH U100
cw insulin
# Accelerated HTN/HTN�benign
Lisinopril/HCTZ stopped, now on amlodipine
#HLD
-No current meds listed
#Morbid obesity due to excess calorie consumption�BMI 39.5 kg
Weight loss recommended, low-fat 1800 ADA diet
DVT prophylaxis
heparin
Full code
Anticipated Discharge: Today
Subjective/Interval History
-
Date of Service: August 15, 2023
denies pain
Objective Data
-
Labs:
Laboratory Results
08/15/23
04:55
Sodium 133 L
Potassium 4.6
Chloride 100
Carbon Dioxide 30
BUN 39 H
Creatinine 1.9 H
Glucose 181 H
Calcium 9.0
Vital Signs:
Vital Signs
Temp Pulse Resp BP Pulse Ox
98.2 F 61 17 158/78 96
08/15/23 08:07 08/15/23 08:07 08/15/23 08:07 08/15/23 08:07 08/15/23 08:40
I&O
08/14/23 08/15/23 08/16/23
06:59 06:59 06:59
Intake Total 1080 / 1080 1140 / 1140
Output Total 650 / 650 1250 / 1250
Balance 430 / 430 -110 / -110
--- NOTE | 2023-08-15 11:56 | CM ---
Addendum entered by Halie Farrar 08/15/23 14:00:
IMM benefit explained; form signed @ [id number]
Addendum entered by Halie Farrar 08/15/23 13:55:
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
Addendum entered by Halie Farrar 08/15/23 12:51:
Plan: discharge to [facility] via ambulance today
Report # [phone]

Original Note:
Plan: discharge to [facility] today; contacted [facility] for bed availability
[2023-08-15] MEDS: NOVOLOG FLEXPEN 18 UNITS SC (12:38)
[2023-08-15] MEDS: NOVOLOG FLEXPEN-LOW RESISTANCE 2 UNITS SC ×2 (12:39→16:01)
--- NOTE | 2023-08-15 12:43 | W.DCSUMMARY ---
Discharge Summary
Discharge Data
Date of Admission: 08/06/23
Date of Discharge: 08/15/23
-
Pending Results: No
Hospital Course
72-year-old male with past medical history of diabetes mellitus, chronic diabetic wound, hypertension, hyperlipidemia, morbid obesity came to the hospital with right diabetic foot nonhealing wound infection. MRI was initially done which was
concerning for osteomyelitis. Patient was seen by podiatry who performed bone biopsy which later came back as there was no infection. Initially patient was on IV antibiotics however after bone biopsy ruled out osteomyelitis infectious disease
transition patient antibiotics to oral. While patient was in the hospital he also was seen by diabetes nurse practitioner with titrating patient sling. On this hospitalization he also had renal insufficiency. Renal ultrasound was consistent with
renal cyst. Patient was also having acute urinary retention and required Todd catheter placement prior to discharge. Patient was also evaluated by physical therapy recommended SNF. For his hypertension, due to elevated creatinine his lisinopril
and hydrochlorothiazide was stopped and instead he was started on amlodipine and hydralazine. Once patient creatinine continue to improve, he was then discharged to SNF with instructions to follow-up with all his physicians outpatient.
Discharge Plan
-
Patient Disposition: [facility]ci/SNF
Discharge Diagnosis/Procedures: Right heel osteomyelitis by MRI, ruled out by bone bx
Right heel nonhealing foot infection
Renal insufficiency
Acute urinary retention
Diet: As tolerated and Diabetic, Carb Controlled
Activity: As tolerated and Other activity
Additional Activity: can wt bear to Rt forefoot with walker and DH pressure relief shoe
Blood Work: BMP at SNF
Activity Restrictions/Additional Instructions:
Wound Care Instructions
R plantar heel: clean with soap and water, Collagen and dry dressing, sean wrap to secure daily. Can remove sean wrap at bedtime.
Offloaded heel with air chair cushion on pillow when elevating legs
Offloading shoe DH pressure relief shoe. Weight bear on forefoot only with use of walker when ambulating.
Follow up with Dr. Pratik Treviño 1 wk after discharge.
can wt bear to Rt forefoot with walker and DH pressure relief shoe
Voiding trial at [facility] when more ambulatory
Referrals:
Stanislaw Mckinney DO [Family Provider] -
Pratik Treviño DPM [Specified Professional Personl] - in less than 1 week
Prescriptions:
New
hydralazine 10 mg Tablet
5 mg PO TID Qty: 0 0RF
polyethylene glycol 3350 [HealthyLax] 17 gram Powder In Packet
17 g PO DAILY Qty: 0 0RF
amlodipine 10 mg Tablet
10 mg PO DAILY Qty: 0 0RF
bisacodyl 10 mg Suppository
10 mg SD [id number] PRN (Reason: constipation) Qty: 0 0RF
gabapentin 100 mg Capsule
100 mg PO TID Qty: 0 0RF
insulin aspart U-100 100 unit/mL (3 mL) Insulin Pen
20 unit SC DAILY@0800,1630 Qty: 0 0RF
insulin aspart U-100 100 unit/mL (3 mL) Insulin Pen
18 unit SC DAILY@1130 Qty: 0 0RF
sennosides-docusate sodium [Stool Softener-Stimulant Laxat] 8.6-50 mg Tablet
1 tab PO BIDPRN PRN (Reason: constipation) Qty: 0 0RF
Insulin Glargine Lantus [Lantus] 47 UNITS
Subcutaneous Insulin Syringe [Syringe-Insulin] 0 UNIT
As Directed mls/hr SC HS
Ordered By: Jacek Hernandez MD
Last Taken: 08/14/23 22:02 0.44 mls
doxycycline hyclate 100 mg Capsule
100 mg PO Q12 Qty: 28 0RF
oxycodone 5 mg Tablet
7.5 mg PO QID 3 Days Qty: 18 0RF
Continued
aspirin 81 MG tablet,chewable
81 mg PO DAILY
Discontinued
oxycodone 15 mg Tablet
7.5 mg PO QID
Novolin R Regular U100 Insulin 100 UNITS/ML solution
30 units SC BID
Humulin N NPH U-100 Insulin 100 UNIT/ML suspension
50 units SC DAILY@1200
lisinopril-hydrochlorothiazide 20-12.5 mg tablet
1 tab PO DAILY
Discharge Orders:
Discharge Patient (As Directed); Ordered 08/15/23
Ordered By: Jacek Hernandez
Discharge Date and Time
Discharge Date/Time: 08/15/23 18:17
Print Language: WOLOF
[2023-08-15] MEDS: FLOMAX 0.400000000000000022 MG PO (12:49)
[2023-08-15] MEDS: FLUZONE HIGH-DOSE QUAD 2023-24 0.699999999999999956 ML IM (13:17)
[2023-08-15 15:19] VITALS: BP 148/72
[2023-08-15 16:01] LABS: Glucose - Point of Care 208 mg/dl (70-99)
== END 2023-08-15 18:17 | DRG 629 ==
LOC: 4 EAST ACU 17:32
PROVIDERS: Clinical Nurse Specialist Family Health; Physician Assistant; ADMITTING PHYSICIAN Internal Medicine; ATTENDING PHYSICIAN Internal Medicine; CONSULT PHYSICIAN Podiatrist Foot & Ankle Surgery; EMERGENCY PHYSICIAN Emergency Medicine; FAMILY PHYSICIAN Family Medicine; OTHER PHYSICIAN Internal Medicine Infectious Disease
PROC: 0QBL0ZX Excision of Right Tarsal, Open Approach, Diagnostic (ICD-10-PCS; 2023-08-09)
PROC: 3E02340 Introduction of Influenza Vaccine into Muscle, Percutaneous Approach (ICD-10-PCS; 2023-08-15)
DX: E11.621 Type 2 diabetes mellitus with foot ulcer (principal); L97.419 Non-pressure chronic ulcer of right heel and midfoot with unspecified severity; N17.9 Acute kidney failure, unspecified; E11.40 Type 2 diabetes mellitus with diabetic neuropathy, unspecified; E78.00 Pure hypercholesterolemia, unspecified; R33.9 Retention of urine, unspecified; N28.1 Cyst of kidney, acquired; I12.9 Hypertensive chronic kidney disease with stage 1 through stage 4 chronic kidney disease, or unspecified chronic kidney disease; E11.22 Type 2 diabetes mellitus with diabetic chronic kidney disease; N18.9 Chronic kidney disease, unspecified; K21.9 Gastro-esophageal reflux disease without esophagitis; E66.01 Morbid (severe) obesity due to excess calories; E11.622 Type 2 diabetes mellitus with other skin ulcer; E11.65 Type 2 diabetes mellitus with hyperglycemia; S91.341A Puncture wound with foreign body, right foot, initial encounter; W45.0XXA Nail entering through skin, initial encounter; Y93.01 Activity, walking, marching and hiking; Y92.9 Unspecified place or not applicable; Z79.82 Long term (current) use of aspirin; Z79.891 Long term (current) use of opiate analgesic; Z79.4 Long term (current) use of insulin; Z63.8 Other specified problems related to primary support group; Z23 Encounter for immunization; Z91.199 Patient's noncompliance with other medical treatment and regimen due to unspecified reason; Z68.39 Body mass index [BMI] 39.0-39.9, adult
CPT/HCPCS: 88304; 88311; 73630; 73723; 76770; 80048; 80053; 80202; 81003; 82570; 82962; 83036; 84300; 85025; 85027; 86803; 87040; 87070; 87075; 87077; 87147; 87176; 87186; 87205; 90662; 93922; 93925; 96374; 96375; 97116; 97162; 97166; 97535; 99285; A9575; G0008

== ENCOUNTER → 2023-08-19 11:24 | Outpatient (REF) | payer MEDICARE, SELFPAY ==
[2023-08-19 11:49] LABS: % Basophils 0.6 % (0-2); % Eosinophils 3.6 % (0-6); % Immature Granulocytes 0.5 % (0-0.5); % Lymphocytes 21.5 % (20.5-51.1); % Monocytes 7.2 % (1.7-9.3); % Neutrophils 66.6 % (42.2-75.2); Absolute Eosinophils 0.2 10^3/uL (0-0.7); Absolute Lymphocytes 1.4 10^3/uL (1.2-3.4); Absolute Monocytes 0.5 10^3/uL (0.1-0.6); Absolute Neutrophils 4.2 10^3/uL (1.4-6.5); Mean Corp Hgb Conc. 33.3 g/dL (33.0-37.0); Mean Corpuscular Hgb 29.2 pg (27.0-31.0); Mean Corpuscular Volume 87.5 fL (80.0-94.0); Nucleated Red Blood Cells % 0 % (-); Platelet Count 255 10^3/uL (130-400); Red Blood Cell Count 3.77 10^6/uL (4.70-6.10); Red Cell Dist. Width 12.7 % (11.5-14.5); White Blood Cell Count 6.4 10^3/uL (4.8-10.8)
[2023-08-19 14:33] LABS: Blood Urea Nitrogen 31 mg/dl (9-20); Calcium 8.5 mg/dl (8.4-10.2); Carbon Dioxide 24 mmol/L (22-30); Chloride 104 mmol/L (98-107); Glucose 139 mg/dl (70-99); Potassium 4.6 mmol/L (3.5-5.1); Sodium 135 mmol/L (135-145); eGFR 53.74
== END ==
LOC: OLABP 11:24
PROVIDERS: ATTENDING PHYSICIAN Family Medicine
DX: M86.171 Other acute osteomyelitis, right ankle and foot (principal); R26.2 Difficulty in walking, not elsewhere classified; E11.40 Type 2 diabetes mellitus with diabetic neuropathy, unspecified; R33.9 Retention of urine, unspecified
CPT/HCPCS: 36415; 80048; 85025

== ENCOUNTER → 2023-09-02 10:12 | Outpatient (REF) | payer MEDICARE, SELFPAY ==
[2023-09-02 11:07] LABS: Hematocrit 33.7 % (39.0-52.0); Mean Corp Hgb Conc. 32.6 g/dL (33.0-37.0); Mean Corpuscular Hgb 29.3 pg (27.0-31.0); Mean Corpuscular Volume 89.6 fL (80.0-94.0); Mean Platelet Volume 10.2 fL (7.4-10.4); Platelet Count 207 10^3/uL (130-400); Red Blood Cell Count 3.76 10^6/uL (4.70-6.10); Red Cell Dist. Width 12.9 % (11.5-14.5); White Blood Cell Count 5.9 10^3/uL (4.8-10.8)
[2023-09-02 11:18] LABS: ALT (SGPT) 18 U/L (0-50); AST (SGOT) 21 U/L (17-59); Albumin 3.1 g/dl (3.5-5.0); Alkaline Phosphatase 56 U/L (38-126); Blood Urea Nitrogen 24 mg/dl (9-20); Calcium 8.5 mg/dl (8.4-10.2); Carbon Dioxide 27 mmol/L (22-30); Chloride 105 mmol/L (98-107); Glucose 116 mg/dl (70-99); Potassium 4.6 mmol/L (3.5-5.1); Sodium 138 mmol/L (135-145); Total Bilirubin 0.5 mg/dl (0.2-1.3); Total Protein 6.1 g/dl (6.3-8.2); eGFR 53.74
== END ==
LOC: OLABP 10:12
PROVIDERS: ATTENDING PHYSICIAN Family Medicine
DX: N18.32 Chronic kidney disease, stage 3b (principal); N17.9 Acute kidney failure, unspecified; I10 Essential (primary) hypertension; E11.40 Type 2 diabetes mellitus with diabetic neuropathy, unspecified; M62.81 Muscle weakness (generalized); M86.171 Other acute osteomyelitis, right ankle and foot; S91.301A Unspecified open wound, right foot, initial encounter
CPT/HCPCS: 36415; 80053; 85027; 86140

== ENCOUNTER 2023-09-10 12:50 | Emergency (ER) | payer MEDICARE, SELFPAY ==
[2023-09-10 12:59] VITALS: BMI 39.2
[2023-09-10 13:00] VITALS: BP 159/87
--- NOTE | 2023-09-10 13:22 | ED.GENMED ---
History of Present Illness
General
Chief Complaint: Failure to Thrive
Time Seen by Provider: 09/10/23 13:02
Travel History
Have you had any contact with someone who has COVID-19?: No
Do you have any symptoms of coronavirus? Fever > 100 degrees, chills, cough, shortness of breath, sore throat, loss of taste or smell, muscle aches, or headache?: No
History of Present Illness
History of Present Illness:
72 yo male w/ hx of chronic pain and IDDM presents to the Emergency Department for medical evaluation, he was seen today by visiting nurses who felt his living conditions were uninhabitable. He was d/c from [facility] 1 week ago after rehab stay
secondary to R heel diabetic foot ulcer. He was admitted to this hospital 08/05-08/14 with concern for osteomyelitis, underwent bone biopsy that was negative. He states that he was not given a prescription for insulin at time of SNF discharge, thus
has not been using it. States he has been taking all of his other meds. Denies any acute complaints at this time. When asked why visiting nurses felt he needed to be here, he states 'because my home is not up to their standards'.
Past History
Past History
ED Past Medical History: GERD, HTN, Hypercholesterolemia and IDDM
ED Past Surgical History: None
Social History
Tobacco: Non-smoker
Alcohol: None
Drug: None
Living: with family
Review of Systems
Review of Systems
Allergies reviewed?: Yes
All Other Systems: ROS reviewed and negative except as documented in HPI and ROS
Phy Exam
Physical Exam
Physical Exam:
GEN: Well appearing, NAD. Disheveled with poor hygiene, malodorous
Eyes: PERRLA, EOMs intact, no scleral icterus
HENT: NCAT, oral mucosa moist, no JVD, no cervical adenopathy.
Lungs: CTAB, no wheezes, rales, rhonchi, normal chest wall excursion
Cardiac: RRR, no M/R/G, no peripheral edema. Radial pulses 2+ bilat
Abdomen: S, NT, ND, NABS. Soft umbilical hernia noted
Neuro: AO x 3
MSK: No gross deformity or ecchymosis. No edema. No digital clubbing
Skin: No rashes, petechiae. Superficial ulceration to the right heel reportedly chronic
Course
Orders/Labs/Results
Orders:
Orders
09/10/23 13:20
Bedside Glucose- Treatment ONCE
Urinalysis Reflex To Culture Urgent
09/10/23 13:24
Complete Blood Count/With Diff Urgent
09/10/23 14:05
Oxycodone [Roxicodone] 7.5 mg PO NOW STA
09/10/23 14:28
Oxycodone [Roxicodone] 7.5 mg PO NOW STA
09/10/23 14:30
Comprehensive Metabolic Panel Urgent
09/10/23 15:00
Insulin Aspart [NOVOLOG vial] 12 units SC NOW STA
09/10/23 15:08
Case Management Consult ONCE
Case Management Consult: Other
Abnormal Lab Results
09/10/23 09/10/23 09/10/23
13: 13:28 14:30
RBC 4.35 L 10^6/uL
(4.70-6.10)
Hgb 12.6 L g/dL
(13.0-18.0)
Hct 37.3 L %
(39.0-52.0)
Neutrophils % 76.4 H %
(42.2-75.2)
Lymphocytes % 16.0 L %
(20.5-51.1)
BUN 22 H mg/dl
(9-20)
Glucose 347 H mg/dl
(70-99)
POC Glucose 350 H mg/dl
(70-99)
09/10/23 13:24
09/10/23 14:30
Vital Signs
Initial and Last Documented VS:
Initial Vital Signs
Temp Pulse Resp BP Pulse Ox
98.7 F 66 16 159/87 98
09/10/23 13:00 09/10/23 13:00 09/10/23 13:00 09/10/23 13:00 09/10/23 13:00
Last Documented Vital Signs
Temp Pulse Resp BP Pulse Ox
98.7 F 66 17 180/90 98
09/10/23 13:00 09/10/23 16:15 09/10/23 16:15 09/10/23 15:00 09/10/23 16:15
MDM/Problems Addressed
MDM/Problems Addressed:
Patient is medically stable at this time. He is mildly hyperglycemic as a result of his insulin noncompliance. He was seen by case management, refused rehab. Provided with refills of insulin and education from nursing staff on appropriate usage.
Adult protective services is involved with this patient however he exhibits intact/appropriate decision making capacity
*Critical Care Note
Total Time (30-74mins, 75-104mins- exclusive of procedures): Not Applicable
ED Attending Note
-
Portions of this chart may have been created with voice recognition software.� Occasional wrong word or��sound alike� substitutions may have occurred due to the inherent limitations of voice recognition software.
Discharge Plan
Departure
Patient Disposition: Home (Routine Discharge)
Date of Disposition: 09/10/23
Time of Disposition: 16:14
Patient with high blood pressure during this ER visit?: No
Discharge Problem:
Adult failure to thrive, Non compliance w medication regimen
Instructions: Diabetes and diet, Foot care for people with diabetes
Prescriptions:
New
insulin aspart U-100 100 unit/mL (3 mL) insulin pen
15 unit SC DIRECTED Qty: 15 0RF
Rx Instructions:
20 units SC with breakfast and lunch, 18 units SC with dinner
insulin glargine 100 unit/mL (3 mL) insulin pen
47 unit SC QPM Qty: 15 0RF
No Action
aspirin 81 MG tablet,chewable
81 mg PO DAILY
hydralazine 10 mg Tablet
5 mg PO TID Qty: 0 0RF
amlodipine 10 mg Tablet
10 mg PO DAILY Qty: 0 0RF
gabapentin 100 mg Capsule
100 mg PO TID Qty: 0 0RF
sennosides-docusate sodium [Stool Softener-Stimulant Laxat] 8.6-50 mg Tablet
1 tab PO BIDPRN PRN (Reason: constipation) Qty: 0 0RF
oxycodone 15 mg tablet
7.5 mg PO QIDPRN PRN (Reason: severe pain)
insulin glargine [Lantus Solostar U-100 Insulin] 100 unit/mL (3 mL) Insulin Pen
47 unit SC QPM
polyethylene glycol 3350 [HealthyLax] 17 gram powder in packet
17 g PO DAILYPRN PRN (Reason: constipation)
insulin aspart U-100 100 unit/mL (3 mL) insulin pen
20 unit SC DAILY@0800,1200
insulin aspart U-100 100 unit/mL (3 mL) insulin pen
18 unit SC QPM
telmisartan 20 mg Tablet
20 mg PO DAILY
Referrals:
Stanislaw Mckinney DO [Family Provider] -
Interventions
Interventions:
*Risk Screen - Suicide Last Done: 09/10/23 13:04
*General Assessment Last Done: 09/10/23 13:03
*Neglect/Abuse Screening Last Done: 09/10/23 13:04
*ED COVID-19 Vaccine History Last Done: 09/10/23 13:03
Discharge Date and Time
Print Language: PALAUAN
[2023-09-10 13:30] LABS: Glucose - Point of Care 350 mg/dl (70-99)
[2023-09-10 13:34] LABS: % Basophils 0.5 % (0-2); % Eosinophils 1.7 % (0-6); % Immature Granulocytes 0.3 % (0-0.5); % Monocytes 5.1 % (1.7-9.3); % Neutrophils 76.4 % (42.2-75.2); Absolute Eosinophils 0.1 10^3/uL (0-0.7); Absolute Lymphocytes 1.2 10^3/uL (1.2-3.4); Absolute Monocytes 0.4 10^3/uL (0.1-0.6); Absolute Neutrophils 5.7 10^3/uL (1.4-6.5); Hematocrit 37.3 % (39.0-52.0); Hemoglobin 12.6 g/dL (13.0-18.0); Mean Corp Hgb Conc. 33.8 g/dL (33.0-37.0); Mean Corpuscular Volume 85.7 fL (80.0-94.0); Mean Platelet Volume 10.1 fL (7.4-10.4); Nucleated Red Blood Cells % 0 % (-); Platelet Count 211 10^3/uL (130-400); Red Blood Cell Count 4.35 10^6/uL (4.70-6.10); Red Cell Dist. Width 12.2 % (11.5-14.5); White Blood Cell Count 7.5 10^3/uL (4.8-10.8)
[2023-09-10 14:00] VITALS: BP 175/84
[2023-09-10] MEDS: ROXICODONE 7.5 MG PO (14:48)
[2023-09-10 14:55] LABS: ALT (SGPT) 20 U/L (0-50); AST (SGOT) 21 U/L (17-59); Albumin 3.6 g/dl (3.5-5.0); Alkaline Phosphatase 63 U/L (38-126); Blood Urea Nitrogen 22 mg/dl (9-20); Calcium 8.8 mg/dl (8.4-10.2); Carbon Dioxide 25 mmol/L (22-30); Chloride 101 mmol/L (98-107); Estimated Creatinine Clearance 61 ml/min; Glucose 347 mg/dl (70-99); Potassium 4.5 mmol/L (3.5-5.1); Sodium 135 mmol/L (135-145); Total Bilirubin 1.2 mg/dl (0.2-1.3); Total Protein 6.8 g/dl (6.3-8.2); eGFR 58.73
[2023-09-10 15:00] VITALS: BP 180/90
[2023-09-10] MEDS: NOVOLOG vial 12 UNITS SC (15:13)
--- NOTE | 2023-09-10 16:17 | VNURNOTE ---
Liaison [facility] that [facility] was headed to ED earlier today. TT stated 'want to make sure that ER knows that [facility] was out there today and they called 911 as they called their airport operations supervisor who suggested
911. Home is in terrible deplorable condition but he cannot care for himself - was soaked in urine. He never picked up his insulin that he said a 'friend' was picking up for him - so hadn't taken his insulin in days'. According to [employer] and SN
involved patient has not showered in more than a week, not taken meds in 3 days, has not checked blood sugar or taken insulin. Home is very unsanitary.
Patient was a [facility] start of care 09/06 following a stay at [facility] 08/14 - 09/02.
Son is not available to assist with care at this time.
Above information and texts shared with ANGIE and Riya Betts.
--- NOTE | 2023-09-10 16:25 | CM ---
CM consulted to assist pt with discharge planning at ED.
Reviewed pt's chart, met with pt.
Pt is a 72 year old male, was brought to ED per request by [facility] RN and APS due to pt's inability to care for himself.
Pt reports he lives alone in a 2SH, no steps, has 1st floor set up. Pt reports he has a son who will be released from a intermediate one week from now for driving without DL. Pt reports he ambulates with a walker and struggles how to use modern insulin. Pt
reports he used to know how to use ald fashion insulin.
Pt reports he was at [facility] for 2 weeks, released one week ago and have [facility]. Pt has strong odor smell and pt stated he is aware and he does not take a shower. CM encouraged the pt to take a shower and pt expressed his understanding.
CM discussed option ts to have a safe environment, offered to get him to a SNF and pt stated he has no reason to go to a rehab, just released and pt is requested to return back home today.
Pt gave this CM his friends phone numbers: Jose Cruz [phone], [place] [phone], Davide [phone]. CM left messages to Jose Cruz and [place]. CM spoke to pt's friend Davide and he stated that pt can easily take an Uber to get home and to get his
meds from the pharmacy.
Pt stated he prefers to use [facility]. CM called [facility] pharmacy , spoke to pharmacist Kaylah and she stated that their pharmacy does home delivery and it will cost to the pt $7.99. for same day delivery and $5.99 for next day
delivery. Pt has fady notified of home delivery meds and he just needs to call [facility] pharmacy, request home delivery and to provide credit card #.
CM discussed this case with [facility] liaison and director of .
CM will notify [facility] APS regarding pt's request to return back home.
Pt stated he will take an Uber to get home.
D/C plan: home with resumptions of [facility], APS to follow up and friends support. [facility] will continue diabetes education at home.
--- NOTE | 2023-09-11 08:40 | CM ---
CM called [facility] APS to notify that pt was discharged home yesterday from ED.
CM asked APS to follow up with the pt.
== END 2023-09-10 17:02 | disposition home or self-care (01) ==
LOC: EMR 12:50
PROVIDERS: Physician Assistant; EMERGENCY PHYSICIAN Emergency Medicine; FAMILY PHYSICIAN Family Medicine
DX: R62.7 Adult failure to thrive (principal); E11.621 Type 2 diabetes mellitus with foot ulcer; Z91.148 Patient's other noncompliance with medication regimen for other reason; E78.00 Pure hypercholesterolemia, unspecified; I10 Essential (primary) hypertension; K21.9 Gastro-esophageal reflux disease without esophagitis; Z79.4 Long term (current) use of insulin
CPT/HCPCS: 99283; 96372; 80053; 82962; 85025

== ENCOUNTER → 2023-09-30 12:19 | Outpatient (REF) | payer MEDICARE, SELFPAY | LOC: WOUND 12:19 | PROVIDERS: ATTENDING PHYSICIAN Surgery; FAMILY PHYSICIAN Family Medicine | DX: L89.613 Pressure ulcer of right heel, stage 3 (principal); E11.65 Type 2 diabetes mellitus with hyperglycemia; E11.42 Type 2 diabetes mellitus with diabetic polyneuropathy; I10 Essential (primary) hypertension; Z79.4 Long term (current) use of insulin; E66.01 Morbid (severe) obesity due to excess calories; Z78.9 Other specified health status | CPT/HCPCS: 97597; 97598; 99213 ==

== ENCOUNTER → 2023-10-14 14:02 | Outpatient (REF) | payer MEDICARE, SELFPAY | LOC: WOUND 14:02 | PROVIDERS: ATTENDING PHYSICIAN Surgery; FAMILY PHYSICIAN Family Medicine | DX: L89.613 Pressure ulcer of right heel, stage 3 (principal); E11.65 Type 2 diabetes mellitus with hyperglycemia; E11.42 Type 2 diabetes mellitus with diabetic polyneuropathy; I10 Essential (primary) hypertension; Z79.4 Long term (current) use of insulin; E66.01 Morbid (severe) obesity due to excess calories | CPT/HCPCS: 99213 ==

== ENCOUNTER 2023-10-25 12:26 | Inpatient (IN) | payer MEDICARE, SELFPAY ==
[2023-10-23 17:12] VITALS: BP 177/71
[2023-10-23 17:47] LABS: % Basophils 0.7 % (0-2); % Immature Granulocytes 0.3 % (0-0.5); % Lymphocytes 16.5 % (20.5-51.1); % Monocytes 5.2 % (1.7-9.3); % Neutrophils 76.3 % (42.2-75.2); Absolute Basophils 0.1 10^3/uL (0-0.2); Absolute Eosinophils 0.1 10^3/uL (0-0.7); Absolute Lymphocytes 1.5 10^3/uL (1.2-3.4); Absolute Monocytes 0.5 10^3/uL (0.1-0.6); Hematocrit 32.9 % (39.0-52.0); Hemoglobin 11.2 g/dL (13.0-18.0); Mean Corpuscular Hgb 28.7 pg (27.0-31.0); Mean Corpuscular Volume 84.4 fL (80.0-94.0); Mean Platelet Volume 9.6 fL (7.4-10.4); Nucleated Red Blood Cells % 0 % (-); Platelet Count 253 10^3/uL (130-400); Red Cell Dist. Width 13.5 % (11.5-14.5); White Blood Cell Count 9.1 10^3/uL (4.8-10.8)
[2023-10-23 17:58] LABS: ALT (SGPT) 17 U/L (0-50); AST (SGOT) 25 U/L (17-59); Alkaline Phosphatase 87 U/L (38-126); Blood Urea Nitrogen 33 mg/dl (9-20); Calcium 9.1 mg/dl (8.4-10.2); Carbon Dioxide 27 mmol/L (22-30); Chloride 102 mmol/L (98-107); Glucose 204 mg/dl (70-99); Potassium 5.3 mmol/L (3.5-5.1); Sodium 137 mmol/L (135-145); Total Bilirubin 1.2 mg/dl (0.2-1.3); Total Protein 7.5 g/dl (6.3-8.2); eGFR 29.62
[2023-10-23 18:09] LABS: Troponin I 0.023 ng/ml
[2023-10-23 18:54] VITALS: BMI 39.6
[2023-10-23 18:56] VITALS: BP 144/74
[2023-10-23 19:46] LABS: NT-proBNP 3190 pg/ml
[2023-10-23 21:21] VITALS: BP 128/64
[2023-10-23 21:49] VITALS: BP 145/72
[2023-10-23] MEDS: LASIX 60 MG IV (21:55)
[2023-10-23 22:00] VITALS: BP 152/73
--- NOTE | 2023-10-23 22:19 | PHANOTE ---
med rec donna(10/23/23)-patient states he does not know the names of his medications. Confirmed insulin, aspirin, and oxycodone with him, but other medications are written on a list he left at home. Used [employer] and [employer] to create rest of medlist.
--- NOTE | 2023-10-23 22:23 | HPS.HSE ---
Family Physician
-
Family Physician: Stanisalw Mckinney, DO
Chief Complaint
-
shortness of breath
History of Present Illness
72-year-old male past medical history of CKD, diabetic wound, diabetes, chronic neuropathy, urinary retention, hypertension, hyperlipidemia, obesity, presenting for worsening shortness of breath over the past week. Shortness of breath is worse when
he lies down flat during which time he also gets some facial flushing. Shortness of breath is also worse with exertion. He has had increased lower extremity edema. He denies any weight gain but in fact has lost weight over several months.
He states that he was prescribed what sounds like a diuretics several months ago but he is not sure which medication it is and how much he is taking.
He has chest pressure when he lies down flat occasionally. Denies any chest pain currently. He denies any dizziness, palpitations or cough. He did complain of some chills.
He has been seeing wound care for right foot diabetic wound which has been stable.
He denies any high or low blood sugars recently.
He denies smoking or alcohol use.
Medical History
Past Medical History
Past Medical History: Reports Other (CKD, diabetic wound, diabetes, chronic neuropathy, urinary retention, hypertension, hyperlipidemia, obesity)
Past Surgical History: Reports None
Social History
Tobacco: Non-smoker
Alcohol: None
Drug: None
Family History
Family History: Not pertinent
Allergies / Home Medications
Allergies reflects when Allergies were last updated in [employer].
Home Medications with original date entered in [employer]
Allergy/Medication List:
Allergies
Allergy/AdvReac Type Severity Reaction Status Date / Time
cat dander Allergy Unknown Verified 08/06/23 13:11
dog dander Allergy Unknown Verified 08/06/23 13:11
Home Medications
amlodipine 10 mg tablet 10 mg PO DAILY #0 tabs 08/14/23
gabapentin 100 mg capsule 100 mg PO TID #0 caps 08/14/23
oxycodone 15 mg tablet 15 mg PO TID 09/10/23
telmisartan 20 mg tablet 20 mg PO DAILY 09/10/23
aspirin 81 mg tablet,delayed release 81 mg PO DAILY 10/23/23
hydralazine 10 mg tablet 10 mg PO TID 10/23/23
insulin NPH isoph U-100 human 100 unit/mL (3 mL) subcutaneous pen (Novolin N FlexPen) 45 - 50 unit SC HS 10/23/23
insulin regular human 100 unit/mL (3 mL) subcutaneous pen (Novolin R FlexPen) 30 unit SC BID 10/23/23
nebivolol 20 mg tablet 20 mg PO DAILY 10/23/23
Review of Systems
-
History Source: Patient
A 12 point ROS was completed and negative except as noted: Yes
Constitutional: Reports No Symptoms
EENT: Reports No Symptoms
Respiratory: Reports See HPI
Cardiac: Reports See HPI
Abdomen/GI: Reports No Symptoms
: Reports No Symptoms
Musculoskeletal: Reports No Symptoms
Skin: Reports No Symptoms
Neurological: Reports No Symptoms
Endocrine: Reports No Symptoms
Hematologic/Lymphatic: Reports No Symptoms
Psych: Reports No Symptoms
Physical Exam
Vital Signs
Vital Signs
Temp Pulse Resp BP Pulse Ox
98.2 F 47 17 145/72 98
10/23/23 17:12 10/23/23 21:49 10/23/23 21:49 10/23/23 21:49 10/23/23 21:49
Physical Exam
General: Well Developed, Well Nourished and No Apparent Distress
HEENT: NormoCephalic, Moist mucous membranes and Atraumatic
Respiratory: Clear
Cardiac: S1/S2, Regular Rhythm and Peripheral Edema; No Murmur or Rub
GI: Soft, Non Tender, Non Distended and Normal Bowel Sounds; No Organomegaly
Rectal: Deferred by Provider
Musculoskeletal: No Clubbing, No Cyanosis and No Edema
Skin: No Rash
Neuro: Nonfocal/grossly intact
Laboratory Results
-
10/23/23 17:26
10/23/23 17:26
Laboratory Results
Total Bilirubin 1.2 mg/dl (0.2-1.3) 10/23/23 17:26
AST 25 U/L (17-59) 10/23/23 17:26
ALT 17 U/L (0-50) 10/23/23 17:26
Alkaline Phosphatase 87 U/L (38-126) 10/23/23 17:26
Troponin I 0.023 ng/ml 10/23/23 17:26
Data Reviewed
-
Lab Data: Labs Reviewed by me
Old Records: Reviewed
Impression/Plan
-
IMPRESSION:
PLAN:
# Acute CHF exacerbation
-Chest x-ray appears to show pulmonary edema, report pending
-Cardiac BNP 3000
-Check I's and O's, daily weights
-40 IV Lasix daily
-Check echo
-Cardiology consulted
# Asymptomatic sinus bradycardia
-Heart rate 40s to 50s
# ALISA on CKD likely cardiorenal
# Hyperkalemia
-Creatinine of 2.3 from baseline of 1.4
-Monitor with diuresis
-Hold telmisartan
Type 2 diabetes
-Patient states he is normally on 50 units of Lantus at night, 30 units of Humulin twice a day
-Decrease Lantus from 50 to 25 units for now, and high-dose insulin sliding scale since blood sugar only 100
History of chronic diabetic wound
-Seeing wound care
Chronic anemia
-Hemoglobin stable
Peripheral neuropathy
-Continue gabapentin
Essential hypertension
-Continue amlodipine, hydralazine
Hyperlipidemia
Obesity
Full code
DVT prophylaxis heparin
Diabetic diet/heart failure diet
--- NOTE | 2023-10-23 22:28 | ED.GENMED ---
History of Present Illness
General
Chief Complaint: Breathing Problem
Source: patient
Exam Limitations: none
Time Seen by Provider: 10/23/23 18:33
Nursing documentation reviewed up to this point in time: agreed with
History of Present Illness
History of Present Illness:
72-year-old male with past medical history of hypertension GERD, diabetes presenting the emergency department today with concerns of worsening shortness of breath mainly worse with exertion over the past few days. Claims that his exercise tolerance
has significantly decreased also has had some increased swelling. Denies specific chest pain.
Past History
Past History
ED Past Medical History: GERD, HTN, Hypercholesterolemia and IDDM
ED Past Surgical History: None
Social History
Tobacco: Non-smoker
Alcohol: None
Drug: None
Living: with family
Review of Systems
Review of Systems
Allergies reviewed?: Yes
All Other Systems: ROS reviewed and negative except as documented in HPI and ROS
Phy Exam
Physical Exam
Physical Exam:
GENERAL: Alert , in no apparent distress
EYE: pupils equal and reactive
NECK: Supple, no significant adenopathy.
ENT: o/p clr, mmm.
CARDIAC: Regular rate and rhythm .
LUNGS: Clear breath sounds bilaterally, no acute respiratory distress, no wheezes/rales/rhonchi
ABDOMEN: Soft, without focal tenderness, no r/g, no cvat
NEUROLOGICAL: Alert and oriented, no focal neuro deficits
SKIN: Warm and dry, skin intact.
MUSCULOSKELETAL: +2 pitting edema of the lower extremities bilaterally from the mid thigh distal well perfused.
PSYCH: Normal and appropriate interaction.
Scores
Heart Failure Risk
Heart Failure Risk Score: Not Applicable
Course
Orders/Labs/Results
Orders:
Orders
10/23/23 17:15
Electrocardiogram (*1) Urgent
Reason for Study: Shortness of Breath
EKG- Treatment ONCE
10/23/23 17:26
Complete Blood Count/With Diff Urgent
Comprehensive Metabolic Panel Urgent
NT-proBNP Urgent
Comment: ADD ON
Troponin I Urgent
10/23/23 18:42
Chest [CR Chest - 2 Views ] Urgent
Comment:
Reason For Exam: sob
10/23/23 19:02
Add On- LAB Urgent
Tests Added?: BNP
10/23/23 21:48
Furosemide [Lasix] 60 mg IV NOW STA
10/23/23 22:20
Admit/Transfer Patient As Directed
Co-Sign Provider:
Level of Care: Observation services
Assign to:: Telemetry
Physician / Group: silvestre
Diagnosis: chf exacerbation
Reason for Telemetry: Arrhythmia
Date to Stop Telemetry: 10/26/23
Time to Stop Telemetry: 11:00
Code Status As Directed
Resuscitation Status: Full Code
10/26/23 11:00
DC Protocol for Telemetry ONCE
Abnormal Lab Results
10/23/23
17:26
RBC 3.90 L 10^6/uL
(4.70-6.10)
Hgb 11.2 L g/dL
(13.0-18.0)
Hct 32.9 L %
(39.0-52.0)
Absolute Neuts (auto) 7.0 H 10^3/uL
(1.4-6.5)
Neutrophils % 76.3 H %
(42.2-75.2)
Lymphocytes % 16.5 L %
(20.5-51.1)
Potassium 5.3 H mmol/L
(3.5-5.1)
BUN 33 H mg/dl
(9-20)
Creatinine 2.3 H mg/dL
(0.7-1.3)
Glucose 204 H mg/dl
(70-99)
10/23/23 17:26
10/23/23 17:26
Vital Signs
Initial and Last Documented VS:
Initial Vital Signs
Temp Pulse Resp BP Pulse Ox
98.2 F 57 18 177/71 99
10/23/23 17:12 10/23/23 17:12 10/23/23 17:12 10/23/23 17:12 10/23/23 17:12
Last Documented Vital Signs
Temp Pulse Resp BP Pulse Ox
98.2 F 47 17 145/72 98
10/23/23 17:12 10/23/23 21:49 10/23/23 21:49 10/23/23 21:49 10/23/23 21:49
MDM/Problems Addressed
MDM/Problems Addressed:
72-year-old male presenting to the emergency department today with concerns of worsening shortness of breath mainly with exertion. Significant legs here initial blood pressure elevated pulse rate in the 50s no signs of heart block and sinus rhythm
labs obtained showing elevated creatinine level 2.3, previous 1.3 a few months ago. Additionally elevated BNP. Concern potential cardiorenal for further assessment. Given dose of Lasix here. Pulse ox did decrease with ambulation into the 80s
otherwise when resting in bed in mid 90s
*Critical Care Note
Total Time (30-74mins, 75-104mins- exclusive of procedures): Not Applicable
ED Attending Note
-
Portions of this chart may have been created with voice recognition software.� Occasional wrong word or��sound alike� substitutions may have occurred due to the inherent limitations of voice recognition software.
Discharge Plan
Departure
Patient Disposition: Admit
Date of Disposition: 10/23/23
Time of Disposition: 22:30
Admit to: Telemetry
Admit to doctor: Raj
Presentation/result/management discussed w/ accepting MD/DO: Hospitalist
Patient with high blood pressure during this ER visit?: No
Condition: Good
Covid-19: Not Applicable
Discharge Problem:
Cardiorenal syndrome
Prescriptions:
No Action
amlodipine 10 mg Tablet
10 mg PO DAILY Qty: 0 0RF
gabapentin 100 mg Capsule
100 mg PO TID Qty: 0 0RF
oxycodone 15 mg tablet
15 mg PO TID
Patient Comments:
10/23/23: last filled 100 tablets on 09/26/23 at [facility]
telmisartan 20 mg Tablet
20 mg PO DAILY
aspirin 81 mg Tablet,Delayed Release (Dr/Ec)
81 mg PO DAILY
Novolin R FlexPen 100 unit/mL (3 mL) Insulin Pen
30 unit SC BID
Novolin N FlexPen 100 unit/mL (3 mL) Insulin Pen
45 - 50 unit SC HS
nebivolol 20 mg Tablet
20 mg PO DAILY
hydralazine 10 mg tablet
10 mg PO TID
Referrals:
Stanislaw Mckinney DO [Family Provider] -
Interventions
Interventions:
*Risk Screen - Suicide Last Done: 10/23/23 17:12
*General Assessment Last Done: 10/23/23 17:12
*Neglect/Abuse Screening Last Done: 10/23/23 17:12
*ED COVID-19 Vaccine History Last Done: 10/23/23 18:57
ED- Cardiac Assessment Last Done: 10/23/23 18:57
ED- Pulmonary Assessment Last Done: 10/23/23 18:57
Discharge Date and Time
Print Language: SYRIAC
[2023-10-23 23:10] VITALS: BP 175/81; BMI 39.9
--- NOTE | 2023-10-23 23:30 | PTCARENOTE ---
Pt arrived to floor via stretcher. AAOx3. VSS. Sinus domenic on the monitor. Pt has large R heel wound with moderate amount rodriguez/yellow drainage. Wound cleansed and redressed. Pt disheveled with numerous areas of dirt noted in groin, abd folds and
feet with foul odor. Pt given complete bed bath and repositioned in bed. CM consulted re: see note in abuse screening. Oriented to room, call nolasco within reach.
[2023-10-24] VITALS (8 sets, daily range): BP systolic 148–182; BP diastolic 72–90; BMI 39.9; BMI 39.8
[2023-10-24 07:37] LABS: % Basophils 0.5 % (0-2); % Eosinophils 2.4 % (0-6); % Immature Granulocytes 0.5 % (0-0.5); % Lymphocytes 25.6 % (20.5-51.1); % Monocytes 7.7 % (1.7-9.3); % Neutrophils 63.3 % (42.2-75.2); Absolute Eosinophils 0.2 10^3/uL (0-0.7); Absolute Lymphocytes 1.9 10^3/uL (1.2-3.4); Absolute Monocytes 0.6 10^3/uL (0.1-0.6); Absolute Neutrophils 4.7 10^3/uL (1.4-6.5); Hematocrit 29.4 % (39.0-52.0); Hemoglobin 9.8 g/dL (13.0-18.0); Mean Corp Hgb Conc. 33.3 g/dL (33.0-37.0); Mean Corpuscular Hgb 28.4 pg (27.0-31.0); Mean Corpuscular Volume 85.2 fL (80.0-94.0); Mean Platelet Volume 9.8 fL (7.4-10.4); Nucleated Red Blood Cells % 0 % (-); Platelet Count 199 10^3/uL (130-400); Red Blood Cell Count 3.45 10^6/uL (4.70-6.10); Red Cell Dist. Width 13.4 % (11.5-14.5); White Blood Cell Count 7.4 10^3/uL (4.8-10.8)
[2023-10-24 07:59] LABS: ALT (SGPT) 13 U/L (0-50); AST (SGOT) 23 U/L (17-59); Albumin 3.2 g/dl (3.5-5.0); Alkaline Phosphatase 73 U/L (38-126); Blood Urea Nitrogen 38 mg/dl (9-20); Calcium 8.6 mg/dl (8.4-10.2); Carbon Dioxide 26 mmol/L (22-30); Chloride 104 mmol/L (98-107); Estimated Creatinine Clearance 38 ml/min; Glucose 174 mg/dl (70-99); Potassium 4.6 mmol/L (3.5-5.1); Sodium 137 mmol/L (135-145); Total Protein 6.2 g/dl (6.3-8.2); eGFR 33.03
[2023-10-24 08:30] LABS: Glucose - Point of Care 172 mg/dl (70-99)
--- NOTE | 2023-10-24 08:56 | W.PN.HOSP.TC ---
Today's Communication/Plan
-
see bold
Assessment / Plan
Assessment / Plan
HPI: 72-year-old male past medical history of CKD, diabetic wound, diabetes, chronic neuropathy, urinary retention, hypertension, hyperlipidemia, obesity, presenting for worsening shortness of breath over the past week. Shortness of breath is worse
when he lies down flat during which time he also gets some facial flushing. Shortness of breath is also worse with exertion. He has had increased lower extremity edema. He denies any weight gain but in fact has lost weight over several months.
He states that he was prescribed what sounds like a diuretics several months ago but he is not sure which medication it is and how much he is taking.
# Acute CHF exacerbation
Chest x-ray appears to show pulmonary edema, report pending, BNP 3000
Increase Lasix to 40 mg IV twice daily, echocardiogram requested, f/u TSH
Appreciate cardiology input, started Imdur 30 mg daily, hydralazine 25 mg 3 times daily
Trend creatinine, trend daily weights
# Asymptomatic sinus bradycardia
-Heart rate 40s to 50s
-Hold home nebivolol�permanently discontinue
-Monitor on telemetry
#Uncontrolled hypertension
Hold home amlodipine due to lower extremity edema
Started on Imdur 30 mg daily and hydralazine 25 mg 3 times a day by cardiology
Can titrate hydralazine as needed
# ALISA on CKD likely cardiorenal
# Hyperkalemia
-Creatinine 2.1, down from 2.3 from baseline of 1.4
-Hyperkalemia resolved, monitor creatinine with diuresis
-Hold telmisartan
Type 2 diabetes
-Hemoglobin A1c 8.8
-Patient states he is normally on 50 units of Lantus at night, 30 units of Humulin twice a day
-Decrease Lantus from 50 to 25 units for now, and high-dose insulin sliding scale since blood sugar only 100
History of chronic diabetic wound
-Wound care consulted
Chronic anemia
-Hemoglobin stable
Peripheral neuropathy
-Continue gabapentin
Essential hypertension
-Continue amlodipine, hydralazine
Obesity due to excess calories
-Affects all aspects of care
Hyperlipidemia
Obesity
DVT prophylaxis�subcu heparin
Full code
Physical Exam
General: Morbidly obese, no acute distress
HEENT: Normocephalic, Atraumatic, EOMI, MMM
Respiratory: Clear to Auscultation bilaterally
Cardiac: Normal S1/S2, Regular Rate and Rhythm
GI: Soft, Nontender, Nondistended, Normal Bowel Sounds
Extremities: No Clubbing, Cyanosis
3+ bilateral lower extremity edema
Neuro: Nonfocal/Grossly Intact
Psych: Calm, Cooperative
Derm:
Right heel ulcer noted
Anticipated Discharge: > 48 hours
Subjective/Interval History
-
Date of Service: October 24, 2023
Patient continues to have dyspnea with activity. He does report right heel pain. No fever, no vomiting.
Objective Data
-
Labs:
Laboratory Results
10/24/23
06:29
WBC 7.4
Hgb 9.8 L
Hct 29.4 L
Plt Count 199 D
Sodium 137
Potassium 4.6
Chloride 104
Carbon Dioxide 26
BUN 38 H
Creatinine 2.1 H
Glucose 174 H
Calcium 8.6
Total Bilirubin 1.0
AST 23
ALT 13
Alkaline Phosphatase 73
Vital Signs:
Vital Signs
Temp Pulse Resp BP Pulse Ox
98.2 F 54 18 182/90 97
10/24/23 07:00 10/24/23 07:00 10/24/23 07:00 10/24/23 07:00 10/24/23 07:00
I&O
10/23/23 10/24/23 10/25/23
06:59 06:59 06:59
Intake Total 100 / 100
Balance 100 / 100
[2023-10-24 09:26] LABS: Glycohemoglobin (HgbA1c) 8.8 % (4.0-5.6)
[2023-10-24] MEDS: NOVOLOG FLEXPEN-HIGH RESISTANCE 2 UNITS SC ×2 (09:45→16:44)
[2023-10-24] MEDS: ROXICODONE 15 MG PO ×3 (09:53→21:20)
[2023-10-24] MEDS: HEPARIN 5000 UNITS SC ×2 (09:54→21:00)
[2023-10-24] MEDS: ASPIR LOW (ENTERIC COATED) 81 MG PO (09:54)
[2023-10-24] MEDS: LASIX 40 MG IV ×2 (09:54→16:43)
--- NOTE | 2023-10-24 11:19 | CON.CAR ---
Consultation
Consultation Request
Date/Time Consultation Requested: 10/24/2023
Date/Time Consultation Performed: 10/24/2023
Requesting Provider: Dr. Braden
Performing Provider: Dr. Sullivan
Reason for Consultation: CHF
Medical History
-
Chief Complaint: SOB
History of Present Illness:
72-year-old male with hypertension, hyperlipidemia, diabetes, CKD, and obesity presenting with a 3-day history of progressive shortness of breath. The patient denies chest pain, palpitations, or syncopal events. Blood pressure was noted to be
elevated on admission. Clinical concern for CHF, given significant lower extremity edema.
Past Medical History
Past Medical History: HTN, Hypercholesterolemia, IDDM and Renal Failure
Past Surgical History: None
Social History
Tobacco: Non-Smoker
Alcohol: None
Drug: None
Living: With Family (Son)
Family History
Family History: Reviewed & Not Pertinent
Allergies / Home Medications
Allergy/AdvReac Type Severity Reaction Status Date / Time
cat dander Allergy Unknown Verified 08/06/23 13:11
dog dander Allergy Unknown Verified 08/06/23 13:11
�Medication �Instructions �Recorded �Confirmed �Type
amlodipine 10 mg tablet 10 mg PO DAILY #0 tabs 08/14/23 09/10/23 Rx
gabapentin 100 mg capsule 100 mg PO TID #0 caps 08/14/23 09/10/23 Rx
oxycodone 15 mg tablet 15 mg PO TID 09/10/23 10/23/23 History
telmisartan 20 mg tablet 20 mg PO DAILY 09/10/23 09/10/23 History
aspirin 81 mg tablet,delayed 81 mg PO DAILY 10/23/23 10/23/23 History
release
hydralazine 10 mg tablet 10 mg PO TID 10/23/23 10/23/23 History
insulin NPH isoph U-100 human 100 45 - 50 unit SC HS 10/23/23 10/23/23 History
unit/mL (3 mL) subcutaneous pen
(Novolin N FlexPen)
insulin regular human 100 unit/mL 30 unit SC BID 10/23/23 10/23/23 History
(3 mL) subcutaneous pen (Novolin R
FlexPen)
nebivolol 20 mg tablet 20 mg PO DAILY 10/23/23 History
Review of Systems
-
All other systems: Negative unless noted
Physical Exam
Vital Signs
Temp Pulse Resp BP Pulse Ox
98.2 F 54 18 182/90 97
10/24/23 07:00 10/24/23 07:00 10/24/23 07:00 10/24/23 07:00 10/24/23 07:00
Lab Results
10/24/23 06:29
10/24/23 06:29
Troponin I 0.023 ng/ml 10/23/23 17:26
Rgg-P-Desrdmnkatb Pept 3190 pg/ml 10/23/23 17:26
Physical Exam
General: No Apparent Distress and Comfortable
HEENT: Normocephalic
Respiratory: Clear
Cardiac: S1/S2, Regular Rhythm and Peripheral Edema (3+)
Breast: N/A
GI: Soft
Rectal: Deferred by Provider
Musculoskeletal: Edema (3+)
Skin: Warm
Neuro: AO x 3
Psych: Calm (Warm, dry)
Impression / Plan
-
72-year-old male with hypertension, hyperlipidemia, diabetes, CKD, and obesity presenting with a 3-day history of progressive shortness of breath. The patient denies chest pain, palpitations, or syncopal events. Blood pressure was noted to be
elevated on admission. Clinical concern for CHF, given significant lower extremity edema.
SOB:
-Clinical concern for acute CHF (type currently unknown); BNP 3190, 3+ edema on examination.
-Patient was not taking Lasix at home.
-Last echocardiogram 08/29/2021 revealed an LVEF of 60-65%, stage I diastolic dysfunction; no significant valvular disease.
-Will update echocardiogram tomorrow.
-Continue Lasix 40 mg IV BID; continue to monitor renal function.
-Check TSH.
Hypertension:
-Uncontrolled; patient with significant edema and CKD.
-Will try to avoid amlodipine as it would worsen his edema.
-Continue Lasix as above.
-Will start Imdur 30 mg daily and hydralazine 25 mg TID.
CKD:
-Monitor renal function with diuresis.
Hyperlipidemia:
-Current status unknown; not on a statin at home.
-Obtain lipid panel and manage accordingly.
Diabetes:
-Hemoglobin A1c 8.8%.
-Management as per primary hospitalist team.
Obesity:
-Weight loss recommended.
Data Reviewed
-
EKG: Report Reviewed by me (Sinus rhythm)
Medical Tests (Nuc Med, Echo etc): Report Reviewed by me (Echocardiogram (08/29/2021): LVEF of 60-65%, stage I diastolic dysfunction; no significant valvular disease.)
Labs: Labs Reviewed by me
[2023-10-24] MEDS: IMDUR (EXTENDED RELEASE) 30 MG PO (12:44)
[2023-10-24] MEDS: APRESOLINE 25 MG PO ×3 (12:44→21:20)
[2023-10-24 12:59] LABS: Glucose - Point of Care 259 mg/dl (70-99)
[2023-10-24] MEDS: NOVOLOG FLEXPEN-HIGH RESISTANCE 7 UNITS SC (13:49)
[2023-10-24 16:43] LABS: Glucose - Point of Care 196 mg/dl (70-99)
[2023-10-24 21:15] LABS: Glucose - Point of Care 240 mg/dl (70-99)
[2023-10-24] MEDS: HUMULIN N KWIKPEN 27 UNITS SC (21:24)
[2023-10-25] VITALS (9 sets, daily range): BP systolic 148–200; BP diastolic 56–97; PULSE 55; O2SAT 94; BMI 40.9
[2023-10-25 07:34] LABS: Glucose - Point of Care 169 mg/dl (70-99)
[2023-10-25] MEDS: APRESOLINE 25 MG PO (08:30)
--- NOTE | 2023-10-25 08:42 | W.PN.HOSP.TC ---
Today's Communication/Plan
-
see bold
Assessment / Plan
Assessment / Plan
HPI: 72-year-old male past medical history of CKD, diabetic wound, diabetes, chronic neuropathy, urinary retention, hypertension, hyperlipidemia, obesity, presenting for worsening shortness of breath over the past week. Shortness of breath is worse
when he lies down flat during which time he also gets some facial flushing. Shortness of breath is also worse with exertion. He has had increased lower extremity edema. He denies any weight gain but in fact has lost weight over several months.
He states that he was prescribed what sounds like a diuretics several months ago but he is not sure which medication it is and how much he is taking.
# Acute heart failure with a preserved ejection fraction
Chest x-ray shows pulmonary edema, BNP 3000, TSH wnl
10/24 echo shows ejection fraction of 55-60%
Continue Lasix to 40 mg IV twice daily, trend creatinine, trend daily weights
Appreciate cardiology input, started Imdur 30 mg daily, increase hydralazine to 50 mg 3 times daily
PT rec STR
#Chest pressure
Check EKG, check troponin
# Asymptomatic sinus bradycardia
-Heart rate 40s to 50s
-Hold home nebivolol�permanently discontinue
-Monitor on telemetry
#Uncontrolled hypertension
Hold home amlodipine due to lower extremity edema
Started on Imdur 30 mg daily by cardiology
Increase hydralazine to 50 mg 3 times a day
Can titrate hydralazine as needed
# ALISA on CKD
#Cardiorenal syndrome
# Hyperkalemia
-Creatinine 2.5, was 2.1, down from 2.3 from baseline of 1.4
-Hyperkalemia resolved, monitor creatinine with diuresis
-Hold telmisartan
Type 2 diabetes
-Hemoglobin A1c 8.8
-Patient states he is normally on 30 units of Humulin twice a day
-Start NovoLog 4 units AC 3 times daily
Chronic right heel wound
-Wound care, offloading
Chronic anemia
-Hemoglobin stable
Peripheral neuropathy
-Continue gabapentin
Essential hypertension
-Continue amlodipine, hydralazine
Obesity due to excess calories
-Affects all aspects of care
Hyperlipidemia
Obesity
DVT prophylaxis�subcu heparin
Full code
Total time spent to see the patient on the floor, examine the patient, review data and lab results, discuss treatment plan with patient, nursing staff around 55 minutes.
Physical Exam
General: Morbidly obese, no acute distress
HEENT: Normocephalic, Atraumatic, EOMI, MMM
Respiratory: Clear to Auscultation bilaterally
Cardiac: Normal S1/S2, Regular Rate and Rhythm
GI: Soft, Nontender, Nondistended, Normal Bowel Sounds
Extremities: No Clubbing, Cyanosis
3+ bilateral lower extremity edema
Neuro: Nonfocal/Grossly Intact
Psych: Calm, Cooperative
Derm:
Right heel ulcer noted
Anticipated Discharge: > 48 hours
Subjective/Interval History
-
Date of Service: October 24, 2023
Patient continues to be short of breath. He also reports mild chest pressure. No fever, no vomiting.
Objective Data
-
Labs:
Laboratory Results
10/24/23
06:29
WBC 7.4
Hgb 9.8 L
Hct 29.4 L
Plt Count 199 D
Sodium 137
Potassium 4.6
Chloride 104
Carbon Dioxide 26
BUN 38 H
Creatinine 2.1 H
Glucose 174 H
Calcium 8.6
Total Bilirubin 1.0
AST 23
ALT 13
Alkaline Phosphatase 73
Vital Signs:
Vital Signs
Temp Pulse Resp BP Pulse Ox
98.9 F 54 16 157/75 97
10/24/23 15:00 07/04/24 15:00 10/24/23 15:00 10/24/23 15:00 10/24/23 15:00
I&O
10/23/23 10/24/23 10/25/23
06:59 06:59 06:59
Intake Total 100 / 100
Balance 100 / 100
[2023-10-25] MEDS: NOVOLOG FLEXPEN-HIGH RESISTANCE 2 UNITS SC ×2 (09:18→18:25)
[2023-10-25] MEDS: HEPARIN 5000 UNITS SC ×2 (09:20→19:22)
[2023-10-25] MEDS: LASIX 40 MG IV (09:20)
[2023-10-25] MEDS: ASPIR LOW (ENTERIC COATED) 81 MG PO (09:20)
[2023-10-25] MEDS: MIRALAX 17 GRAMS PO (09:21)
[2023-10-25] MEDS: ROXICODONE 15 MG PO ×3 (09:21→21:18)
[2023-10-25] MEDS: IMDUR (EXTENDED RELEASE) 30 MG PO (09:21)
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
[2023-10-25 11:49] LABS: Hematocrit 32.1 % (39.0-52.0); Hemoglobin 10.4 g/dL (13.0-18.0); Mean Corp Hgb Conc. 32.4 g/dL (33.0-37.0); Mean Corpuscular Hgb 28.4 pg (27.0-31.0); Mean Corpuscular Volume 87.7 fL (80.0-94.0); Mean Platelet Volume 9.3 fL (7.4-10.4); Platelet Count 221 10^3/uL (130-400); Red Blood Cell Count 3.66 10^6/uL (4.70-6.10); Red Cell Dist. Width 13.2 % (11.5-14.5); White Blood Cell Count 7.9 10^3/uL (4.8-10.8)
[2023-10-25 12:04] LABS: Glucose - Point of Care 230 mg/dl (70-99)
[2023-10-25 12:09] LABS: Blood Urea Nitrogen 46 mg/dl (9-20); Calcium 8.6 mg/dl (8.4-10.2); Carbon Dioxide 26 mmol/L (22-30); Chloride 101 mmol/L (98-107); Estimated Creatinine Clearance 32 ml/min; Glucose 226 mg/dl (70-99); HDL Cholesterol 59 mg/dl; LDL Cholesterol, Calculated 127 mg/dl; Magnesium 2.1 mg/dl (1.6-2.3); Potassium 4.6 mmol/L (3.5-5.1); Sodium 137 mmol/L (135-145); Total Cholesterol 213 mg/dl (50-199); Triglyceride 135 mg/dl (10-149); Very Low Density Lipoprotein 27 mg/dl (0-30)
[2023-10-25 12:38] LABS: TSH 2.25 uIU/ml (0.47-4.68)
[2023-10-25] MEDS: NOVOLOG FLEXPEN-HIGH RESISTANCE 4 UNITS SC (12:50)
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
--- NOTE | 2023-10-25 13:08 | W.PN.CD ---
Today's Communication / Plan
-
echo
challenge with lasix 80mg IV bid (1st dose of 80mg this afternoon)
Impression / Plan
-
72-year-old male with hypertension, hyperlipidemia, diabetes, CKD 3a, and obesity presenting with a 3-day history of progressive shortness of breath. The patient denies chest pain, palpitations, or syncopal events. Blood pressure was noted to be
elevated on admission. Clinical concern for CHF, given significant lower extremity edema.
SOB:
-concern for acute CHF (type currently unknown); BNP 3190, 3+ edema on examination.
-Patient was not taking Lasix at home.
-Last echocardiogram 08/29/2021 revealed an LVEF of 60-65%, stage I diastolic dysfunction; no significant valvular disease.
-Will update echocardiogram today
-continue IV lasix with close monitoring of labs and tele
Hypertension:
-Uncontrolled; patient with significant edema and CKD3a.
-Will try to avoid amlodipine as it would worsen his edema.
-Continue Lasix as above.
-continue Imdur 30 mg daily, and hydralazine now at 50 mg TID.
CKD3a:
-Cr has been variable over past several months: 1.3-2.3
-suspect cardiorenal syndrome: challenge with lasix 80mg IV bid (1st dose of 80mg this afternoon)
-if Cr continues to trend up, will need nephrology input
Hyperlipidemia: in setting of DM
-add statin
Diabetes:
-Hemoglobin A1c 8.8%.
-Management as per primary hospitalist team.
Obesity:
-Weight loss recommended.
Physical Exam
Vital Signs/Labs
Vital Signs
Temp Pulse Resp BP Pulse Ox
97.8 F 52 18 174/78 95
10/25/23 11:00 10/25/23 11:00 10/25/23 11:00 10/25/23 11:00 10/25/23 11:00
10/24/23 10/25/23 10/26/23
06:59 06:59 06:59
Actual Weight 111.669 kg 114.895 kg
10/25/23 11:40
10/25/23 11:40
Magnesium 2.1 mg/dl (1.6-2.3) 10/25/23 11:40
Triglycerides 135 mg/dl (10-149) 10/25/23 11:40
LDL Cholesterol, Calc 127 mg/dl 10/25/23 11:40
VLDL Cholesterol, Calc 27 mg/dl (0-30) 10/25/23 11:40
HDL Cholesterol 59 mg/dl 10/25/23 11:40
TSH 2.25 uIU/ml (0.47-4.68) 10/25/23 11:40
10/23/23
17:26
Roe-R-Owacmxyjdzg Pept 3190
LAB Results
10/23/23
17:26
Troponin I 0.023
Physical Exam
Constitutional: No acute distress and Comfortable
EENT: Moist mucous membranes
Cardiovascular: Rhythm & rate is regular, Systolic murmur absent, Pedal edema present and JVD present
Respiratory: Respiratory effort normal and Lungs clear to auscul.
GI: Soft and Distention absent
Neuro/Psych: AO x 3
Data Reviewed
-
Date of Service: October 25, 2023
EKG: Other (Tele: SB 50s)
Labs: Labs Reviewed by me
[2023-10-25 13:14] LABS: Troponin I 0.021 ng/ml
--- NOTE | 2023-10-25 14:00 | PTCARENOTE ---
1400 Pt called for nurse, noted pt vomited moderate amount of some undigested food like secretions. Pt stated that felt better after vomiting.
Dr. Berrios notified, continue to monitor pt closely.
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
[2023-10-25] MEDS: LASIX 80 MG IV (15:54)
[2023-10-25] MEDS: APRESOLINE 50 MG PO ×2 (15:54→22:36)
--- NOTE | 2023-10-25 16:00 | PTCARENOTE ---
1600 Pt aware to be transferred to [facility] private room 321, Report given to [facility] [place] nurse. All personal belongings packed sent with pt.
[2023-10-25] MEDS: LIPITOR 40 MG PO (17:46)
[2023-10-25 18:04] LABS: Glucose - Point of Care 188 mg/dl (70-99)
[2023-10-25] MEDS: APRESOLINE 10 MG IV (19:23)
[2023-10-25] MEDS: DESENEX/MITRAZOL/ZEASORB 1 APPLIC TOPICAL (19:28)
[2023-10-25 21:35] LABS: Glucose - Point of Care 243 mg/dl (70-99)
[2023-10-25] MEDS: HUMULIN N KWIKPEN 27 UNITS SC (22:37)
[2023-10-26] VITALS (9 sets, daily range): BP systolic 138–191; BP diastolic 63–89; BMI 39.9
[2023-10-26] MEDS: APRESOLINE 10 MG IV ×2 (03:06→10:39)
[2023-10-26 07:55] LABS: Glucose - Point of Care 170 mg/dl (70-99)
--- NOTE | 2023-10-26 08:04 | W.PN.HOSP.TC ---
Today's Communication/Plan
-
Zofran
IV Lasix
Assessment / Plan
Assessment / Plan
HPI: 72-year-old male past medical history of CKD, diabetic wound, diabetes, chronic neuropathy, urinary retention, hypertension, hyperlipidemia, obesity, presenting for worsening shortness of breath over the past week. Shortness of breath is worse
when he lies down flat during which time he also gets some facial flushing. Shortness of breath is also worse with exertion. He has had increased lower extremity edema. He denies any weight gain but in fact has lost weight over several months.
He states that he was prescribed what sounds like a diuretics several months ago but he is not sure which medication it is and how much he is taking.
# Acute heart failure with a preserved ejection fraction
Chest x-ray shows pulmonary edema, BNP 3000, TSH wnl
10/24 echo shows ejection fraction of 55-60%
Continue Lasix to 80 mg IV twice daily, trend creatinine, trend daily weights
Appreciate cardiology input, started Imdur 30 mg daily, increase hydralazine to 50 mg 3 times daily
PT rec STR
#Chest pressure
EKG nonischemic, troponins negative
# Asymptomatic sinus bradycardia
-Heart rate 40s to 50s
-Permanently discontinue home nebivolol
-Monitor on telemetry
#Uncontrolled hypertension
Hold home amlodipine due to lower extremity edema
Started on Imdur 30 mg daily by cardiology
Increased hydralazine to 50 mg 3 times a day
Can titrate hydralazine as needed
# ALISA on CKD
#Cardiorenal syndrome
# Hyperkalemia
-Creatinine 2.3, was 2.5, was 2.1, down from 2.3 from baseline of 1.4
-Hyperkalemia resolved, monitor creatinine with diuresis
-Hold telmisartan
Type 2 diabetes
-Hemoglobin A1c 8.8
-Patient states he is normally on 30 units of Humulin twice a day, currently ordered Humulin 27 units at bedtime here
-Start NovoLog 4 units AC 3 times daily due to hyperglycemia
Nausea/vomiting
� Supportive care, antiemetics as needed
Chronic right heel wound
-Wound care, offloading
-Follow-up with wound care outpatient
Chronic anemia
-Hemoglobin stable
Peripheral neuropathy
-Continue gabapentin
Essential hypertension
-Continue amlodipine, hydralazine
Obesity due to excess calories
-Affects all aspects of care
Hyperlipidemia
Obesity
DVT prophylaxis�subcu heparin
Full code
Total time spent to see the patient on the floor, examine the patient, review data and lab results, discuss treatment plan with patient, nursing staff around 51 minutes.
Physical Exam
General: Morbidly obese, no acute distress
HEENT: Normocephalic, Atraumatic, EOMI, MMM
Respiratory: Clear to Auscultation bilaterally
Cardiac: Normal S1/S2, Regular Rate and Rhythm
GI: Soft, Nontender, Nondistended, Normal Bowel Sounds
Extremities: No Clubbing, Cyanosis
2-3+ bilateral lower extremity edema
Neuro: Nonfocal/Grossly Intact
Psych: Calm, Cooperative
Derm:
Right heel ulcer noted
Anticipated Discharge: > 48 hours
Subjective/Interval History
-
Date of Service: October 26, 2023
Patient vomited up his breakfast. He continues to be short of breath. No fever.
Objective Data
-
Labs:
Laboratory Results
10/26/23
06:00
WBC Pending
Hgb Pending
Hct Pending
Plt Count Pending
Sodium Pending
Potassium Pending
Chloride Pending
Carbon Dioxide Pending
BUN Pending
Creatinine Pending
Glucose Pending
Calcium Pending
Vital Signs:
Vital Signs
Temp Pulse Resp BP Pulse Ox
97.9 F 53 16 156/70 98
10/26/23 07:41 10/26/23 07:41 10/26/23 07:41 10/26/23 07:41 10/26/23 07:41
I&O
10/25/23 10/26/23 10/27/23
06:59 06:59 06:59
Intake Total 1240 / 1240 720 / 720
Output Total 800 / 800 1500 / 1500
Balance 440 / 440 -780 / -780
[2023-10-26] MEDS: MIRALAX 17 GRAMS PO (08:53)
[2023-10-26] MEDS: IMDUR (EXTENDED RELEASE) 30 MG PO (08:53)
[2023-10-26] MEDS: HEPARIN 5000 UNITS SC ×2 (08:53→21:13)
[2023-10-26] MEDS: APRESOLINE 50 MG PO ×3 (08:53→21:49)
[2023-10-26] MEDS: ROXICODONE 15 MG PO ×3 (08:53→21:13)
[2023-10-26] MEDS: ASPIR LOW (ENTERIC COATED) 81 MG PO (08:53)
[2023-10-26] MEDS: DESENEX/MITRAZOL/ZEASORB 1 APPLIC TOPICAL ×2 (08:54→21:32)
[2023-10-26] MEDS: DAKIN'S SOLUTION 0.125% 1/4 STRENGTH 1 ML TOPICAL (08:54)
[2023-10-26] MEDS: LASIX 80 MG IV ×2 (08:54→16:34)
[2023-10-26] MEDS: NOVOLOG FLEXPEN-HIGH RESISTANCE 2 UNITS SC (08:55)
--- NOTE | 2023-10-26 10:01 | W.PN.CD ---
Today's Communication / Plan
-
Follow labs, pending
Follow weights, ?? up 3 kg
Continue Lasix 80 bid and see if azotemia worsens which might suggest we will consider right heart cath
Impression / Plan
-
72-year-old male with hypertension, hyperlipidemia, diabetes, CKD 3a, and obesity presenting with a 3-day history of progressive shortness of breath. The patient denies chest pain, palpitations, or syncopal events. Blood pressure was noted to be
elevated on admission. Clinical concern for CHF, given significant lower extremity edema.
SOB:
- CXR read as heart failure (AP, poor inspiration)
- concern for acute HFpEF, BNP 3190, 3+ edema yesterday
- Today I see legs that have no edema
- Patient was not taking Lasix at home.
- Last echocardiogram 08/29/2021 revealed an LVEF of 60-65%, stage I diastolic dysfunction; no significant valvular disease.
- Echo 10/25/2023 with normal LVEF and AoV sclerosis, indeterminate diastolic fxn, RA est at 3 mmHg and PASP normal
-continue IV lasix with close monitoring of labs and tele
Hypertension: improving => meds increased, now on hydralazine as well
CKD3a
- Variable Cr
Hyperlipidemia => now on statin
DM, Hemoglobin A1c 8.8%.
Obesity, BMI 40.9
Physical Exam
Vital Signs/Labs
Vital Signs
Temp Pulse Resp BP Pulse Ox
97.9 F 53 16 156/70 98
10/26/23 07:41 10/26/23 07:41 10/26/23 07:41 10/26/23 07:41 10/26/23 07:41
10/25/23 10/26/23 10/27/23
06:59 06:59 06:59
Actual Weight 114.895 kg
Magnesium 2.1 mg/dl (1.6-2.3) 10/25/23 11:40
Triglycerides 135 mg/dl (10-149) 10/25/23 11:40
LDL Cholesterol, Calc 127 mg/dl 10/25/23 11:40
VLDL Cholesterol, Calc 27 mg/dl (0-30) 10/25/23 11:40
HDL Cholesterol 59 mg/dl 10/25/23 11:40
TSH 2.25 uIU/ml (0.47-4.68) 10/25/23 11:40
10/23/23
17:26
Haq-Z-Myogqkusymv Pept 3190
LAB Results
10/23/23 10/25/23
17:26 12:35
Troponin I 0.023 0.021
Physical Exam
Constitutional: No acute distress
EENT: Anicteric
Cardiovascular: Rhythm & rate is regular and Pedal edema is absent (tubigrips on and got lasix yesteray and earlier today)
Respiratory: Respiratory effort normal and Lungs clear to auscul.
Neuro/Psych: Alert
Data Reviewed
-
Date of Service: October 26, 2023
[2023-10-26 10:40] LABS: Hematocrit 31.1 % (39.0-52.0); Hemoglobin 10.5 g/dL (13.0-18.0); Mean Corp Hgb Conc. 33.8 g/dL (33.0-37.0); Mean Corpuscular Hgb 28.5 pg (27.0-31.0); Mean Corpuscular Volume 84.5 fL (80.0-94.0); Mean Platelet Volume 9.7 fL (7.4-10.4); Platelet Count 215 10^3/uL (130-400); Red Blood Cell Count 3.68 10^6/uL (4.70-6.10); Red Cell Dist. Width 13.3 % (11.5-14.5); White Blood Cell Count 6.2 10^3/uL (4.8-10.8)
[2023-10-26 11:02] LABS: Calcium 8.6 mg/dl (8.4-10.2); Carbon Dioxide 27 mmol/L (22-30); Estimated Creatinine Clearance 35 ml/min; Potassium 4.1 mmol/L (3.5-5.1); eGFR 29.62
[2023-10-26 11:21] LABS: Blood Urea Nitrogen 43 mg/dl (9-20); Chloride 100 mmol/L (98-107); Glucose 176 mg/dl (70-99); Sodium 135 mmol/L (135-145)
[2023-10-26] MEDS: ZOFRAN 4 MG IV (11:24)
[2023-10-26 12:05] LABS: Glucose - Point of Care 202 mg/dl (70-99)
[2023-10-26] MEDS: NOVOLOG FLEXPEN-HIGH RESISTANCE 4 UNITS SC ×2 (13:18→17:08)
[2023-10-26] MEDS: NOVOLOG FLEXPEN 4 UNITS SC ×2 (13:18→17:09)
[2023-10-26] MEDS: LIPITOR 40 MG PO (16:34)
[2023-10-26 17:06] LABS: Glucose - Point of Care 212 mg/dl (70-99)
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
[2023-10-26 21:41] LABS: Glucose - Point of Care 109 mg/dl (70-99)
[2023-10-26] MEDS: HUMULIN N KWIKPEN SC (22:16)
[2023-10-27] VITALS (7 sets, daily range): BP systolic 152–182; BP diastolic 71–87; BMI 39.4
[2023-10-27 05:58] LABS: Hematocrit 31.7 % (39.0-52.0); Hemoglobin 10.5 g/dL (13.0-18.0); Mean Corp Hgb Conc. 33.1 g/dL (33.0-37.0); Mean Corpuscular Hgb 28.1 pg (27.0-31.0); Mean Corpuscular Volume 84.8 fL (80.0-94.0); Mean Platelet Volume 9.7 fL (7.4-10.4); Platelet Count 215 10^3/uL (130-400); Red Blood Cell Count 3.74 10^6/uL (4.70-6.10); Red Cell Dist. Width 13.4 % (11.5-14.5)
[2023-10-27 06:26] LABS: Blood Urea Nitrogen 48 mg/dl (9-20); Calcium 8.6 mg/dl (8.4-10.2); Carbon Dioxide 28 mmol/L (22-30); Chloride 99 mmol/L (98-107); Estimated Creatinine Clearance 31 ml/min; Glucose 170 mg/dl (70-99); Magnesium 2.1 mg/dl (1.6-2.3); Potassium 4.4 mmol/L (3.5-5.1); Sodium 136 mmol/L (135-145); eGFR 26.63
[2023-10-27] MEDS: MIRALAX 17 GRAMS PO (07:54)
[2023-10-27] MEDS: LASIX 80 MG IV ×2 (07:54→16:59)
[2023-10-27] MEDS: IMDUR (EXTENDED RELEASE) 30 MG PO (07:54)
[2023-10-27] MEDS: APRESOLINE 50 MG PO ×3 (07:54→21:07)
[2023-10-27] MEDS: ASPIR LOW (ENTERIC COATED) 81 MG PO (07:54)
[2023-10-27] MEDS: ROXICODONE 15 MG PO ×3 (07:55→21:10)
[2023-10-27] MEDS: DAKIN'S SOLUTION 0.125% 1/4 STRENGTH 1 ML TOPICAL (07:55)
[2023-10-27] MEDS: HEPARIN 5000 UNITS SC ×2 (07:55→21:07)
[2023-10-27] MEDS: APRESOLINE 10 MG IV ×2 (07:56→23:16)
[2023-10-27] MEDS: ZOFRAN 4 MG IV ×2 (07:56→21:25)
[2023-10-27 08:11] LABS: Glucose - Point of Care 201 mg/dl (70-99)
--- NOTE | 2023-10-27 08:21 | W.PN.HOSP.TC ---
Today's Communication/Plan
-
see bold
Assessment / Plan
Assessment / Plan
HPI: 72-year-old male past medical history of CKD, diabetic wound, diabetes, chronic neuropathy, urinary retention, hypertension, hyperlipidemia, obesity, presenting for worsening shortness of breath over the past week. Shortness of breath is worse
when he lies down flat during which time he also gets some facial flushing. Shortness of breath is also worse with exertion. He has had increased lower extremity edema. He denies any weight gain but in fact has lost weight over several months.
He states that he was prescribed what sounds like a diuretics several months ago but he is not sure which medication it is and how much he is taking.
# Acute heart failure with a preserved ejection fraction
Chest x-ray shows pulmonary edema, BNP 3000, TSH wnl
10/24 echo shows ejection fraction of 55-60%
Continue Lasix to 80 mg IV twice daily, trend creatinine, trend daily weights
Appreciate cardiology input, started Imdur 30 mg daily, increased hydralazine to 50 mg 3 times daily
PT rec STR
#Chest pressure
EKG nonischemic, troponins negative
# Asymptomatic sinus bradycardia
-Heart rate 40s to 50s
-Permanently discontinue home nebivolol
-Monitor on telemetry
#Uncontrolled hypertension
Hold home amlodipine due to lower extremity edema
Started on Imdur 30 mg daily by cardiology
Increased hydralazine to 50 mg 3 times a day
Can titrate hydralazine as needed
# ALISA on CKD
#Cardiorenal syndrome
# Hyperkalemia
-Creatinine 2.5, was 2.3, was 2.5, was 2.1, down from 2.3 from baseline of 1.4
-Hyperkalemia resolved, monitor creatinine with diuresis
-Hold telmisartan
#Hyperphosphatemia
Due to CKD
Type 2 diabetes
-Hemoglobin A1c 8.8
-Patient states he is normally on 30 units of Humulin twice a day, currently ordered Humulin 30 units at bedtime here
-Increase NovoLog 7 units AC 3 times daily due to hyperglycemia
Nausea/vomiting
� Resolved, continue supportive care, antiemetics as needed
Chronic right heel wound
-Wound care, offloading
-Follow-up with wound care outpatient
Chronic anemia
-Hemoglobin stable
Peripheral neuropathy
-Continue gabapentin
Obesity due to excess calories
-Affects all aspects of care
Hyperlipidemia
Obesity
DVT prophylaxis�subcu heparin
Full code
Total time spent to see the patient on the floor, examine the patient, review data and lab results, discuss treatment plan with patient, nursing staff around 53 minutes.
Physical Exam
General: Morbidly obese, no acute distress
HEENT: Normocephalic, Atraumatic, EOMI, MMM
Respiratory: Clear to Auscultation bilaterally
Cardiac: Normal S1/S2, Regular Rate and Rhythm
GI: Soft, Nontender, Nondistended, Normal Bowel Sounds
Extremities: No Clubbing, Cyanosis
2-3+ bilateral lower extremity edema
Neuro: Nonfocal/Grossly Intact
Psych: Calm, Cooperative
Derm:
Right heel ulcer noted
Anticipated Discharge: 24 - 48 hours
Subjective/Interval History
-
Date of Service: October 27, 2023
Patient vomited yesterday morning. Nausea/vomiting resolved. He tolerated dinner. His breathing has improved. No fever.
Objective Data
-
Labs:
Laboratory Results
10/27/23
05:34
WBC 7.0
Hgb 10.5 L
Hct 31.7 L
Plt Count 215
Sodium 136
Potassium 4.4
Chloride 99
Carbon Dioxide 28
BUN 48 H
Creatinine 2.5 H
Glucose 170 H
Calcium 8.6
Vital Signs:
Vital Signs
Temp Pulse Resp BP Pulse Ox
98.3 F 57 16 182/77 95
10/27/23 07:42 10/27/23 07:42 10/27/23 07:42 10/27/23 07:42 10/27/23 07:42
I&O
10/26/23 10/27/23 10/28/23
06:59 06:59 06:59
Intake Total 720 / 720 1200 / 1200
Output Total 1500 / 1500 1775 / 1775
Balance -780 / -780 -575 / -575
[2023-10-27] MEDS: NOVOLOG FLEXPEN-HIGH RESISTANCE 4 UNITS SC ×2 (08:33→13:12)
[2023-10-27] MEDS: NOVOLOG FLEXPEN 4 UNITS SC ×2 (08:33→13:12)
[2023-10-27] MEDS: DESENEX/MITRAZOL/ZEASORB 1 APPLIC TOPICAL ×2 (09:00→21:08)
[2023-10-27 11:54] LABS: Glucose - Point of Care 242 mg/dl (70-99)
--- NOTE | 2023-10-27 13:55 | PTCARENOTE ---
PT received IV hydralazine this am for SBP 182. that improved to 152 with meds. Vitals at 1300 with SBP in 150s. Swelling in BLE decreased. PT with scrotal swelling. Wound care completed today. Wound on RLE with no drainage and NO odor. yesterday
he had moderate to large amount of foul odorous drainage from wound (after legs in dependent position for half the day while in chair). PT got himself to chair independently and is now eating lunch.
[2023-10-27 16:53] LABS: Glucose - Point of Care 187 mg/dl (70-99)
[2023-10-27] MEDS: LIPITOR 40 MG PO (16:58)
[2023-10-27] MEDS: ROXICODONE PO (16:58)
[2023-10-27] MEDS: NOVOLOG FLEXPEN 7 UNITS SC (16:59)
[2023-10-27] MEDS: NOVOLOG FLEXPEN-HIGH RESISTANCE 2 UNITS SC (16:59)
--- NOTE | 2023-10-27 17:30 | W.PN.CD ---
Today's Communication / Plan
-
Follow labs
Follow weights, he is down over 1 kg since yesterday
Continue Lasix 80 bid and see if azotemia worsens which might suggest we will consider right heart cath
Impression / Plan
-
72-year-old male with hypertension, hyperlipidemia, diabetes, CKD 3a, and obesity presenting with a 3-day history of progressive shortness of breath. The patient denies chest pain, palpitations, or syncopal events. Blood pressure was noted to be
elevated on admission. Clinical concern for CHF, given significant lower extremity edema.
SOB:
- CXR read as heart failure (AP, poor inspiration)
- concern for acute HFpEF, BNP 3190, 3+ edema on admit
- Last 2 days no edema
- Patient was not taking Lasix at home.
- Last echocardiogram 08/29/2021 revealed an LVEF of 60-65%, stage I diastolic dysfunction; no significant valvular disease.
- Echo 10/25/2023 with normal LVEF and AoV sclerosis, indeterminate diastolic fxn, RA est at 3 mmHg and PASP normal
-continue IV lasix with close monitoring of labs and tele
Hypertension: improving => meds increased, now on hydralazine as well
CKD3a
- Variable Cr
Hyperlipidemia => now on statin
DM, Hemoglobin A1c 8.8%.
Obesity, BMI 40.9
Physical Exam
Vital Signs/Labs
Vital Signs
Temp Pulse Resp BP Pulse Ox
98 F 58 16 152/71 96
10/27/23 15:59 10/27/23 15:59 10/27/23 15:59 10/27/23 15:59 10/27/23 15:59
10/26/23 10/27/23 10/28/23
06:59 06:59 06:59
Actual Weight 110.767 kg
10/27/23 05:34
10/27/23 05:34
Magnesium 2.1 mg/dl (1.6-2.3) 10/27/23 05:34
Triglycerides 135 mg/dl (10-149) 10/25/23 11:40
LDL Cholesterol, Calc 127 mg/dl 10/25/23 11:40
VLDL Cholesterol, Calc 27 mg/dl (0-30) 10/25/23 11:40
HDL Cholesterol 59 mg/dl 10/25/23 11:40
TSH 2.25 uIU/ml (0.47-4.68) 10/25/23 11:40
10/23/23
17:26
Kpu-B-Zoqdyccnsap Pept 3190
LAB Results
10/25/23
12:35
Troponin I 0.021
Physical Exam
Constitutional: No acute distress
EENT: Anicteric
Cardiovascular: Rhythm & rate is regular and Pedal edema is absent
Respiratory: Respiratory effort normal and Lungs clear to auscul.
GI: Soft and Distention absent
Neuro/Psych: Alert
Data Reviewed
-
Date of Service: October 27, 2023
[2023-10-27] MEDS: HUMULIN N KWIKPEN 30 UNITS SC (21:14)
[2023-10-27 21:20] LABS: Glucose - Point of Care 231 mg/dl (70-99)
[2023-10-28] VITALS (7 sets, daily range): BP systolic 150–180; BP diastolic 66–77; BMI 39.0
[2023-10-28 06:37] LABS: Hematocrit 32.3 % (39.0-52.0); Mean Corp Hgb Conc. 34.1 g/dL (33.0-37.0); Mean Corpuscular Hgb 28.9 pg (27.0-31.0); Mean Corpuscular Volume 84.8 fL (80.0-94.0); Mean Platelet Volume 9.6 fL (7.4-10.4); Platelet Count 225 10^3/uL (130-400); Red Blood Cell Count 3.81 10^6/uL (4.70-6.10); Red Cell Dist. Width 13.6 % (11.5-14.5); White Blood Cell Count 8.1 10^3/uL (4.8-10.8)
[2023-10-28 07:04] LABS: Blood Urea Nitrogen 47 mg/dl (9-20); Calcium 8.5 mg/dl (8.4-10.2); Carbon Dioxide 32 mmol/L (22-30); Chloride 99 mmol/L (98-107); Estimated Creatinine Clearance 27 ml/min; Glucose 142 mg/dl (70-99); Potassium 4.2 mmol/L (3.5-5.1); Sodium 137 mmol/L (135-145); eGFR 22.29
[2023-10-28] MEDS: APRESOLINE 50 MG PO (08:05)
[2023-10-28] MEDS: ROXICODONE 15 MG PO ×3 (08:06→21:13)
[2023-10-28] MEDS: ASPIR LOW (ENTERIC COATED) 81 MG PO (08:06)
[2023-10-28] MEDS: IMDUR (EXTENDED RELEASE) 30 MG PO (08:06)
[2023-10-28] MEDS: LASIX 80 MG IV ×2 (08:06→15:48)
[2023-10-28 08:09] LABS: Glucose - Point of Care 131 mg/dl (70-99)
[2023-10-28] MEDS: NOVOLOG FLEXPEN-HIGH RESISTANCE SC (08:10)
[2023-10-28] MEDS: NOVOLOG FLEXPEN SC ×2 (08:10→12:02)
[2023-10-28] MEDS: MIRALAX 17 GRAMS PO (08:10)
--- NOTE | 2023-10-28 08:35 | W.PN.CD ---
Addendum entered and electronically signed by Jefferson Hermosillo MD 10/28/23 11:23:
I saw and examined the patient.
The CLINICAL TEAM LEAD's note was reviewed and I agree with the note.
Comment:
1. As Dr. Hong was concerned about, renal function has worsened and we are uncertain of volumes status => progress to Right Heart Cath today
2. More BP control needed=> will increase hydralazine
High risk situation.
Addendum entered and electronically signed by REJI Webster 10/28/23 08:57:
Will increase hydralazine - monitor BP's
Original Note:
Today's Communication / Plan
-
RHC today
May need to further adjust antihypertensives as well
Impression / Plan
-
72-year-old male with hypertension, hyperlipidemia, diabetes, CKD 3a, and obesity presenting with a 3-day history of progressive shortness of breath. The patient denies chest pain, palpitations, or syncopal events. Blood pressure was noted to be
elevated on admission. Clinical concern for CHF, given significant lower extremity edema.
SOB:
-CXR read as heart failure (AP, poor inspiration)
-concern for acute HFpEF, BNP 3190, 3+ edema on admit
-patient is being diuresed here and feels like edema is a bit better, though not to baseline. Currently on IV lasix, which requires intensive monitoring.
-Echo 10/25/2023 with normal LVEF and AoV sclerosis, indeterminate diastolic fxn, RA est at 3 mmHg and PASP normal
-creatinine is worsening with diuresis. Patient thinks edema is improving. Denies SOB. Weight is down about 2 kgs this admit. Plan for RHC today- discussed procedure- patient agreeable.
Hypertension:
-still generally elevated
-hydralazine dosing increased and Imdur added
-monitor with diuresis, but may need to increase above meds
-we are avoiding amlodipine with LE edema
CKD3a:
-creat issues and eval as above
Hyperlipidemia: continue statin
DM, Hemoglobin A1c 8.8%.
Obesity, BMI 40.9
Physical Exam
Vital Signs/Labs
Vital Signs
Temp Pulse Resp BP Pulse Ox
97.9 F 65 18 176/76 94
10/28/23 07:00 10/28/23 08:06 10/28/23 07:00 10/28/23 08:06 10/28/23 07:00
10/27/23 10/28/23 10/29/23
06:59 06:59 06:59
Actual Weight 110.767 kg 109.429 kg
10/28/23 06:12
10/28/23 06:12
Magnesium 2.1 mg/dl (1.6-2.3) 10/27/23 05:34
Triglycerides 135 mg/dl (10-149) 10/25/23 11:40
LDL Cholesterol, Calc 127 mg/dl 10/25/23 11:40
VLDL Cholesterol, Calc 27 mg/dl (0-30) 10/25/23 11:40
HDL Cholesterol 59 mg/dl 10/25/23 11:40
TSH 2.25 uIU/ml (0.47-4.68) 10/25/23 11:40
10/23/23
17:26
Krn-G-Jwfjfokinne Pept 3190
LAB Results
10/25/23
12:35
Troponin I 0.021
Physical Exam
Constitutional: No acute distress
EENT: Anicteric
Cardiovascular: Rhythm & rate is regular (SB) and Pedal edema present (moderate BLE)
Respiratory: Respiratory effort normal and Lungs clear to auscul.
Neuro/Psych: AO x 3
Data Reviewed
-
Date of Service: October 28, 2023
EKG: Other (tele SB)
Medical Tests (PFT, Pathology etc): Other (echo in note)
Labs: Labs Reviewed by me
[2023-10-28] MEDS: DESENEX/MITRAZOL/ZEASORB 1 APPLIC TOPICAL ×2 (08:56→21:12)
[2023-10-28] MEDS: HEPARIN 5000 UNITS SC ×2 (08:56→21:11)
[2023-10-28] MEDS: DAKIN'S SOLUTION 0.125% 1/4 STRENGTH 10 ML TOPICAL (08:56)
--- NOTE | 2023-10-28 09:35 | W.PN.HOSP.TC ---
Today's Communication/Plan
-
see bold
Assessment / Plan
Assessment / Plan
Gen: NAD, AAOx3.
Eyes: EOMI, PERRLA, no scleral icterus.
Neck: supple.
CV: RRR, +S1/S2, no m/r/g.
Resp: CTAB, no rales, wheezes, or rhonchi.
Abd: +BS, soft, NT, ND
Skin: No rashes. 1-2+ dependent B/L LE edema
Neuro: CN 2-12 intact, non-focal.
Psych: Normal mood and affect.
CXR:
1. Mild acute interstitial cardiogenic pulmonary edema.
2. Small bilateral pleural effusions.
3. Mild cardiomegaly.
Echo: Normal biventricular size and systolic function without regional wall motion abnormality. Estimated LVEF 55-60%. Aortic sclerosis without stenosis. Compared to 08/29/21: no significant change.
Acute HFpEF:
-CXR/echo above
-proBNP 3190
-trops NEG
-currently on IV Lasix
-with development of ALISA (on likely CKD3b due to CRS), pt will have RHC today (discussed with Dr. Hermosillo)
Asymptomatic sinus bradycardia:
-BB stopped
-HRs improved
Essential hypertension with hypertensive urgency:
-cont Hydralazine/Imdur
DM2:
-a1c 8.8%
-cont NPH 30U HS, premeal aspart 7U, SSI/accuchecks
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
Other problems:
Hyperkalemia, resolved
Hyperphosphatemia
Chronic right heel wound: wound care, outpt f/u
Chronic anemia: Hb stable
Peripheral neuropathy
Obesity due to excess calories
Hyperlipidemia
Chronic opioid use with dependence: cont home narcotic regimen. Cont miralax.
FULL/heparin
Total time spent on today's encounter was 50 minutes which included time spent in counseling the patient/family regarding diagnosis and treatment plan as listed above, goals of care, and symptom management. Case was discussed with nursing staff,
specialists, and care coordinators/case management. All labs and imaging personally reviewed by me. Remainder the time spent in detailed review of previous records, lab data, imaging, and other medical provider documentation.
Anticipated Discharge: 24 - 48 hours
Subjective/Interval History
-
Date of Service: October 28, 2023
Denies CP/SOB.
Objective Data
-
Labs:
Laboratory Results
10/28/23
06:12
WBC 8.1
Hgb 11.0 L
Hct 32.3 L
Plt Count 225
Sodium 137
Potassium 4.2
Chloride 99
Carbon Dioxide 32 H
BUN 47 H
Creatinine 2.9 H
Glucose 142 H
Calcium 8.5
Vital Signs:
Vital Signs
Temp Pulse Resp BP Pulse Ox
97.9 F 65 18 176/76 94
10/28/23 07:00 10/28/23 08:06 10/28/23 07:00 10/28/23 08:06 10/28/23 07:00
I&O
10/27/23 10/28/23 10/29/23
06:59 06:59 06:59
Intake Total 1200 / 1200 1140 / 1140
Output Total 1775 / 1775 1000 / 1000
Balance -575 / -575 140 / 140
--- NOTE | 2023-10-28 09:49 | PN.DE.MGMTRT ---
Insulin Management
- -
10/28/2023 Diabetes Management Consult
73 year old male admitted on 10/24 with worsening SOB due to Acute CHF Exacerbation.
PMH: HTN, HLD, GERD, obesity, Neuropathy and T2DM. Prior to admission patient states he was taking Humulin N 45 units at 12MN and 45 units at 12 noon with Regular insulin 30 units at either breakfast or lunch. A1C 8.8%, improved from 11.9% on
08/04/23. Cr 2.9, eGFR 22.29.
Pt was transitioned to Lantus @ HS and NovoLog AC during his last hospital visit and he had been discharged home on Lantus 47 units @ HS and NovoLog 20 units @0800,1630 and 18 units @1130. Pt reports that he picked up the new prescription but never
started using the insulin because he did not know how to use the insulin via Pen and that he had been using insulin via vial which he was comfortable with.
Patient is awake alert and oriented, resting in bed, able to discuss diabetes regimen.
Patient states he is NPO for a procedure later on today. Explained to pt that he is NPO for cardiac cath later today.
Discussed trying once again changing insulin to AC NovoLog and Lantus at HS. Pt states he is agreeable if shown how to use the pen injections.
Glucose range yesterday 187 to 242. Fasting glucose range of last 3 AM's 142 to 176.
Will start Lantus 30 units @ HS with 8 units NovoLog AC and low corrective insulin.
Will use corrective insulin while pt is NPO for procedures today.
Will provide insulin administrations instructions today and continue reinforcing education until pt is comfortable using insulin pens.
Discussed with Nurse and reviewed diabetes plan of care.
Pt already has insulin pens and needles at home since his last discharge.
Diabetes History
- -
Type of Diabetes: 2 requiring insulin
Pre-Admission Diabetes Regimen
10/28/23
06:12
Creatinine 2.9 H
Lab Results
Hemoglobin A1c 8.8 % (4.0-5.6) H 10/24/23 06:29
Insulin Pump Settings
IP Diabetes Regimen
10/27/23 10/27/23 10/27/23
11:53 16:51 21:16
Glucose
POC Glucose 242 H 187 H 231 H
10/28/23 10/28/23
06:12 08:07
Glucose 142 H
POC Glucose 131 H
Patient Education
[2023-10-28 11:54] LABS: Glucose - Point of Care 138 mg/dl (70-99)
--- NOTE | 2023-10-28 12:01 | PN.DE ---
Diabetes Education
- -
Diabetes Education:
Met with Mr. Fernandez for insulin instructions, current A1C 8.8%. Pt was offered meter instructions and he declined stating that he already has a working meter at home and has been monitoring his blood sugars. Pt was provided with detailed instructions
on how to self administer insulin at home.
Discussed action of both rapid acting and long acting insulin as well as symptoms and treatment of hypoglycemia, as he will be discharged home on short acting- bolus meal insulin- NovoLog and long acting basal insulin- Lantus at bedtime.
Instructions on set up of insulin pen given with fair return demonstration.
Emphasized need to check his blood sugar before meals and inject rapid acting insulin in abdomen 10-20 minutes before eating his meals and to inject Long acting insulin in outer thigh, rotating sites.
Instructed pt to date insulin pen upon opening and tp store insulin pens that are not in use in the refrigerator, Pt verbalized understanding.
Pt already has NovoLog and Lantus insulin pens at home, this prescription was provided and picked up from the pharmacy back in July, states he has been keeping it in the refrigerator.
Extra pen needles were Provided pt's nurse- Luther and instructed that needles are for pt to use with each insulin administration to reinforce education, as his initial return demo was fair and not impressive.
Will follow up tomorrow.
[2023-10-28] MEDS: NOVOLOG FLEXPEN-LOW RESISTANCE SC (12:03)
--- NOTE | 2023-10-28 14:10 | ITS.CL.CATH ---
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
Cardiac Catheterization
Procedure Report:
RIGHT HEART CATHETERIZATION
Date of Procedure: 10/28/2023
Referring: Raul Hong M.D., Ph.D.
INDICATION: Heart failure, renal failure, assessment of volume status.
ACCESS:
5 [place]an antecubital fossa using a modified Seldinger technique under ultrasound guidance.
CATHETERS:
5 [place]an balloon wedge.
PROCEDURE:
The patient was prepped and draped in standard sterile fashion. The area for antecubital access was anesthetized with 1% lidocaine. Under ultrasound guidance, a tourniquet was placed and the basilic vein was accessed using the radial sheath needle.
A 5 [place]an sheath was inserted into the basilic vein. A 5 [place]an balloon wedge catheter was advanced through the sheath into the superior vena cava. An SVC oxygen saturation was drawn. The balloon wedge catheter was advanced into the pulmonary
artery and a pulmonary artery oxygen saturation was drawn. Arterial oxygen saturation was assumed from pulse oximetry. Cardiac output was calculated using the Aries equation. The PA, wedge, RV and RA pressures were measured on pullback. The balloon
wedge catheter was removed. The 5 [place]an sheath was removed and manual pressure was held for hemostasis.
Weight (kg): 109.3
PA (s/d/x mmHg): 58/24/35
PCWP (a/v/x mmHg): 36/36/25
RV (s/x mmHg): 58/16
RA (a/v/x mmHg): 19/17/16
SVC SvO2 (%): 62.7
IVC SvO2 (%): Not obtained.
RA SvO2 (%): Not obtained.
RV SvO2 (%): Not obtained.
PA SvO2 (%): 63.6
SaO2 (%): 93.0 (assumed)
Hbg (g/dL): 10.6
Aries
CO (liters/minute): 5.71
CI (liters/minute/m2): 2.63
Thermodilution
CO (liters/minute): Not obtained.
CI (liters/minute/m2): Not obtained.
TPG (mmHg): 10
PVR (Quiros Units): 1.75
AVO2 Difference (Volume %): 4.24
Radiation (mGy): 9.52
DAP (cm2.Gy): 1.7451
Fluoroscopy time (minutes): 0.7
CONCLUSION:
1. Severely elevated filling pressures (PCWP = 25 mmHg at 109.3 kg).
2. Mild to moderate, postcapillary pulmonary hypertension (mean PAP = 35 mmHg, PCWP = 25 mmHg, PVR = 1.75 Quiros units).
3. Preserved cardiac index (2.63 L/min/m�).
RECOMMENDATIONS:
1. Expectant management after right heart catheterization via right antecubital approach.
2. Continue diuresis.
Copy to: Raul Hong M.D., Ph.D., Stanislaw Mckinney D.O.
Tee Vaughn D.O., FACC, FACP
--- NOTE | 2023-10-28 14:25 | CM ---
Reviewed chart, patient indicated for SNF. Met with patient to discuss recommendation. Patient stated that he is agreeable to rehab and selected local facilities to him: [facility], [facility], [facility], [facility] and
[facility]. Will make referrals and report back to patient who may have a bed for him. He is agreeable to this plan.
Plan: Case management will continue to follow and assist with discharge planning. SNF when stable.
[2023-10-28] MEDS: APRESOLINE 100 MG PO ×2 (15:41→21:11)
[2023-10-28 16:22] LABS: Glucose - Point of Care 171 mg/dl (70-99)
[2023-10-28] MEDS: NOVOLOG FLEXPEN 8 UNITS SC (18:30)
[2023-10-28] MEDS: NOVOLOG FLEXPEN-LOW RESISTANCE 1 UNITS SC (18:31)
[2023-10-28] MEDS: LIPITOR 40 MG PO (18:32)
[2023-10-28 21:36] LABS: Glucose - Point of Care 222 mg/dl (70-99)
[2023-10-28] MEDS: LANTUS 0.3 UNITS SC (23:33)
[2023-10-29] VITALS (7 sets, daily range): BP systolic 148–172; BP diastolic 55–83; BMI 38.4; BMI 38.5
[2023-10-29 06:51] LABS: Blood Urea Nitrogen 46 mg/dl (9-20); Calcium 8.4 mg/dl (8.4-10.2); Carbon Dioxide 32 mmol/L (22-30); Chloride 97 mmol/L (98-107); Estimated Creatinine Clearance 27 ml/min; Glucose 175 mg/dl (70-99); Potassium 4.2 mmol/L (3.5-5.1); Sodium 137 mmol/L (135-145); eGFR 23.24
--- NOTE | 2023-10-29 07:37 | PN.DE.MGMTRT ---
Insulin Management
- -
10/29/2023 Diabetes Management Consult Follow up
Patient admitted on 10/24 with worsening SOB due to Acute CHF Exacerbation.
PMH: HTN, HLD, GERD, obesity, Neuropathy and T2DM. Prior to admission patient states he was taking Humulin N 45 units at 12MN and 45 units at 12 noon with Regular insulin 30 units at either breakfast or lunch. A1C 8.8%, improved from 11.9% on
08/04/23. Cr 2.9, eGFR 22.29.
Last admission 07/2023 Patient was transitioned to Lantus @ HS and NovoLog had been discharged home on Lantus 47 units @ HS and NovoLog 20 units @0800,1630 and 18 units @1130. Pt reports that he picked up the new prescription but never started using
the insulin because he did not know how to use the insulin via Pen and that he had been using insulin via vial which he was comfortable with.
Patient is awake alert and oriented, resting in bed, able to discuss diabetes regimen.
Patient s/p cardiac cath 10/27, was NPO most of day. Did have dinner, pre dinner glucose 171, hs glucose 222. Lantus 30 units started last hs.
Will increase AC novolog to 10 units today with low corrective insulin.
Patient was instructed 10/27 on insulin prep and administration using prefilled pen. Nursing to have patient self inject all novolog with prefilled pen to continue reinforcing education until pt is comfortable using insulin pens.
Discussed with Nurse and reviewed diabetes plan of care.
Pt already has insulin pens and needles at home since his last discharge.
Jardiance or Farxiga was discussed with patient in the past. $150.35 for one month Jardiance $451.01 for 3 month supply. $143.25 for Farxiga 1 month and $429.72 3 month supply. Patient stated he could not afford.
Diabetes History
- -
Type of Diabetes: 2 requiring insulin
Pre-Admission Diabetes Regimen
10/29/23
06:01
Creatinine 2.8 H
Lab Results
Hemoglobin A1c 8.8 % (4.0-5.6) H 10/24/23 06:29
Insulin Pump Settings
IP Diabetes Regimen
10/28/23 10/28/23 10/28/23
08:07 11:52 16:21
Glucose
POC Glucose 131 H 138 H 171 H
10/28/23 10/29/23
21:35 06:01
Glucose 175 H
POC Glucose 222 H
Patient Education
[2023-10-29 07:46] LABS: Glucose - Point of Care 173 mg/dl (70-99)
[2023-10-29] MEDS: ASPIR LOW (ENTERIC COATED) 81 MG PO (08:12)
[2023-10-29] MEDS: ROXICODONE 15 MG PO ×3 (08:12→22:00)
[2023-10-29] MEDS: IMDUR (EXTENDED RELEASE) 30 MG PO (08:12)
[2023-10-29] MEDS: MIRALAX 17 GRAMS PO (08:12)
[2023-10-29] MEDS: APRESOLINE 100 MG PO ×3 (08:12→22:00)
[2023-10-29] MEDS: LASIX 80 MG IV ×2 (08:13→16:30)
[2023-10-29] MEDS: HEPARIN 5000 UNITS SC ×2 (08:13→22:01)
[2023-10-29] MEDS: DESENEX/MITRAZOL/ZEASORB 1 APPLIC TOPICAL ×2 (08:14→22:01)
[2023-10-29] MEDS: DAKIN'S SOLUTION 0.125% 1/4 STRENGTH 10 ML TOPICAL (08:15)
[2023-10-29] MEDS: NOVOLOG FLEXPEN SC ×2 (09:31→13:52)
[2023-10-29] MEDS: NOVOLOG FLEXPEN-LOW RESISTANCE 1 UNITS SC (09:32)
--- NOTE | 2023-10-29 09:45 | W.PN.CD ---
Today's Communication / Plan
-
Cont IV diuresis
SGLT2i drug pricing
Impression / Plan
-
72-year-old male with hypertension, hyperlipidemia, diabetes, CKD 3a, and obesity presenting with a 3-day history of progressive shortness of breath. The patient denies chest pain, palpitations, or syncopal events. Blood pressure was noted to be
elevated on admission. Clinical concern for CHF, given significant lower extremity edema.
SOB 2/2 acute on chronic HFpEF :
-RHC shows severely elevatd filling pressures from October 27,
-concern for acute HFpEF, BNP 3190, 3+ edema on admit
-Cont IV lasix, which requires intensive monitoring, breathing and weight improving
-Echo 10/25/2023 with normal LVEF and AoV sclerosis, indeterminate diastolic fxn, RA est at 3 mmHg and PASP normal
-creatinine is worsening with diuresis. Patient thinks edema is improving. Denies SOB. Weight continues to come down, he tells me dry weight ~ 230 lbs
Hypertension:
-still generally elevated
-hydralazine dosing increased and Imdur added
-monitor with diuresis, but may need to increase above meds
-avoiding amlodipine with LE edema,
CKD3a:
-creat issues and eval as above
Hyperlipidemia: continue statin
DM, Hemoglobin A1c 8.8%.
Obesity, BMI 40.9
RHC: CONCLUSION:
1. Severely elevated filling pressures (PCWP = 25 mmHg at 109.3 kg).
2. Mild to moderate, postcapillary pulmonary hypertension (mean PAP = 35 mmHg, PCWP = 25 mmHg, PVR = 1.75 Quiros units).
3. Preserved cardiac index (2.63 L/min/m�).
Physical Exam
Vital Signs/Labs
Vital Signs
Temp Pulse Resp BP Pulse Ox
97.8 F 50 18 149/67 99
10/29/23 07:00 10/29/23 08:12 10/29/23 07:00 10/29/23 08:12 10/29/23 07:00
10/28/23 10/29/23 10/30/23
06:59 06:59 06:59
Actual Weight 241 lb 4 oz 238 lb 1.6 oz
10/28/23 06:12
10/29/23 06:01
Magnesium 2.1 mg/dl (1.6-2.3) 10/27/23 05:34
Triglycerides 135 mg/dl (10-149) 10/25/23 11:40
LDL Cholesterol, Calc 127 mg/dl 10/25/23 11:40
VLDL Cholesterol, Calc 27 mg/dl (0-30) 10/25/23 11:40
HDL Cholesterol 59 mg/dl 10/25/23 11:40
TSH 2.25 uIU/ml (0.47-4.68) 10/25/23 11:40
10/23/23
17:26
Bvc-T-Gmyfxdrrlpt Pept 3190
Physical Exam
Constitutional: No acute distress
EENT: Anicteric
Cardiovascular: Rhythm & rate is regular and Pedal edema present (trivial)
Respiratory: Respiratory effort normal and Lungs clear to auscul.
GI: Soft
Neuro/Psych: AO x 3
Data Reviewed
-
Date of Service: October 29, 2023
Medical Decision Making: Reviewed Test Results (RHC severely elevated filling pressures )
EKG: Tracing Personally Visualized and interpreted (sr)
Echo: Tracing Personally Visualized and interpreted
[2023-10-29] MEDS: NOVOLOG FLEXPEN 10 UNITS SC ×2 (09:48→18:41)
--- NOTE | 2023-10-29 10:13 | W.PN.HOSP.TC ---
Today's Communication/Plan
-
see bold
Assessment / Plan
Assessment / Plan
Gen: remains NAD, AAOx3.
Eyes: EOMI, PERRLA, no scleral icterus.
Neck: supple.
CV: domenic, reg rhythm, +S1/S2, no m/r/g.
Resp: CTAB, no rales, wheezes, or rhonchi.
Abd: +BS, soft, NT, ND
Skin: No rashes. trace dependent B/L LE edema
Neuro: CN 2-12 intact, non-focal.
Psych: Normal mood and affect.
CXR:
1. Mild acute interstitial cardiogenic pulmonary edema.
2. Small bilateral pleural effusions.
3. Mild cardiomegaly.
Echo: Normal biventricular size and systolic function without regional wall motion abnormality. Estimated LVEF 55-60%. Aortic sclerosis without stenosis. Compared to 08/29/21: no significant change.
RHC 10/28/23:
1. Severely elevated filling pressures (PCWP = 25 mmHg at 109.3 kg).
2. Mild to moderate, postcapillary pulmonary hypertension (mean PAP = 35 mmHg, PCWP = 25 mmHg, PVR = 1.75 Quiros units).
3. Preserved cardiac index (2.63 L/min/m�).
Acute HFpEF:
-CXR/echo above
-proBNP 3190
-trops NEG
-cont IV Lasix based on RHC findings of severely elevated filling pressures/PCWP
-ALISA on likely CKD3b due to CRS, Cr appears to have plateaued
Asymptomatic sinus bradycardia:
-BB stopped
-HRs improved
Essential hypertension with hypertensive urgency:
-cont Hydralazine/Imdur
DM2:
-a1c 8.8%
-cont Lantus 30U HS, premeal aspart 10U, SSI/accuchecks
-diabetes PREFITTER DOORS following
Other problems:
Hyperkalemia, resolved
Hyperphosphatemia
Chronic right heel wound: wound care, outpt f/u
Chronic anemia: Hb stable
Peripheral neuropathy
Obesity due to excess calories
Hyperlipidemia
Chronic opioid use with dependence: cont home narcotic regimen. Cont miralax.
FULL/heparin
Anticipated Discharge: 24 - 48 hours
Subjective/Interval History
-
Date of Service: October 29, 2023
Objective Data
-
Labs:
Laboratory Results
10/29/23
06:01
Sodium 137
Potassium 4.2
Chloride 97 L
Carbon Dioxide 32 H
BUN 46 H
Creatinine 2.8 H
Glucose 175 H
Calcium 8.4
Vital Signs:
Vital Signs
Temp Pulse Resp BP Pulse Ox
97.8 F 50 18 149/67 99
10/29/23 07:00 10/29/23 08:12 10/29/23 07:00 10/29/23 08:12 10/29/23 07:00
I&O
10/28/23 10/29/23 10/30/23
06:59 06:59 06:59
Intake Total 1140 / 1140 1200 / 1200
Output Total 1000 / 1000 900 / 900
Balance 140 / 140 300 / 300
[2023-10-29 12:02] LABS: Glucose - Point of Care 272 mg/dl (70-99)
[2023-10-29] MEDS: NOVOLOG FLEXPEN-LOW RESISTANCE 3 UNITS SC ×2 (13:53→18:41)
[2023-10-29] MEDS: LIPITOR 40 MG PO (16:30)
[2023-10-29 16:39] LABS: Glucose - Point of Care 209 mg/dl (70-99)
[2023-10-29 18:28] LABS: Glucose - Point of Care 266 mg/dl (70-99)
[2023-10-29 21:52] LABS: Glucose - Point of Care 144 mg/dl (70-99)
[2023-10-29] MEDS: LANTUS 0.3 UNITS SC (22:00)
[2023-10-30 03:00] VITALS: BP 139/62
[2023-10-30 06:00] VITALS: BMI 38.0
[2023-10-30 07:00] VITALS: BP 171/80
[2023-10-30 07:54] LABS: Blood Urea Nitrogen 49 mg/dl (9-20); Calcium 8.1 mg/dl (8.4-10.2); Carbon Dioxide 32 mmol/L (22-30); Chloride 96 mmol/L (98-107); Estimated Creatinine Clearance 26 ml/min; Glucose 187 mg/dl (70-99); Sodium 136 mmol/L (135-145); eGFR 22.29
--- NOTE | 2023-10-30 07:57 | PN.DE.MGMTRT ---
Insulin Management
- -
10/30/2023 Diabetes Management Consult Follow up
Patient admitted on 10/24 with worsening SOB due to Acute CHF Exacerbation.
PMH: HTN, HLD, GERD, obesity, Neuropathy and T2DM. Prior to admission patient states he was taking Humulin N 45 units at 12MN and 45 units at 12 noon with Regular insulin 30 units at either breakfast or lunch. A1C 8.8%, improved from 11.9% on
08/04/23. Cr 2.9, eGFR 22.29.
Last admission 07/2023 Patient was transitioned to Lantus @ HS and NovoLog had been discharged home on Lantus 47 units @ HS and NovoLog 20 units @0800,1630 and 18 units @1130. Pt reports that he picked up the new prescription but never started using
the insulin because he did not know how to use the insulin via Pen and that he had been using insulin via vial which he was comfortable with.
Patient is awake alert and oriented, resting in bed, able to discuss diabetes regimen.
Patient s/p cardiac cath 10/27, was NPO most of day.
10/28 pre meal glucose range 173 to 272; will increase AC novolog to 13 units. HS glucose 144, received lantus 30 units @ HS, fasting glucose this AM 187. Will increase HS lantus to 34 units. Will check 3 AM glucose
Patient was instructed 10/27 on insulin prep and administration using prefilled pen. Nursing to have patient self inject all novolog with prefilled pen to continue reinforcing education until pt is comfortable using insulin pens. Nurse reports
patient did excellent with very few verbal cues to prepare and inject insulin.
Discussed with Nurse and reviewed diabetes plan of care.
Pt already has insulin pens and needles at home since his last discharge.
Jardiance or Farxiga was discussed with patient in the past. $150.35 for one month Jardiance $451.01 for 3 month supply. $143.25 for Farxiga 1 month and $429.72 3 month supply. Patient stated he could not afford.
Diabetes History
- -
Type of Diabetes: 2 requiring insulin
Pre-Admission Diabetes Regimen
10/30/23
05:50
Creatinine 2.9 H
Lab Results
Hemoglobin A1c 8.8 % (4.0-5.6) H 10/24/23 06:29
Insulin Pump Settings
IP Diabetes Regimen
10/29/23 10/29/23 10/29/23
12:01 16:38 18:27
Glucose
POC Glucose 272 H 209 H 266 H
10/29/23 10/30/23
21:51 05:50
Glucose 187 H
POC Glucose 144 H
Meal type: Lunch
Meal type: Breakfast
Amount consumed: 100%
Amount consumed: 100%
Patient Education
[2023-10-30 08:12] LABS: Glucose - Point of Care 224 mg/dl (70-99)
--- NOTE | 2023-10-30 08:18 | W.PN.HOSP.TC ---
Today's Communication/Plan
-
see bold
Assessment / Plan
Assessment / Plan
Gen: NAD, Awake and alert
Eyes: EOMI, PERRLA, no scleral icterus.
Neck: supple.
CV: remains domenic, reg rhythm, +S1/S2, no m/r/g.
Resp: CTAB, no rales, wheezes, or rhonchi.
Abd: +BS, soft, NT, ND
Skin: No rashes. trace dependent RLE edema
Neuro: CN 2-12 intact, non-focal.
Psych: Normal mood and affect.
CXR:
1. Mild acute interstitial cardiogenic pulmonary edema.
2. Small bilateral pleural effusions.
3. Mild cardiomegaly.
Echo: Normal biventricular size and systolic function without regional wall motion abnormality. Estimated LVEF 55-60%. Aortic sclerosis without stenosis. Compared to 08/29/21: no significant change.
RHC 10/28/23:
1. Severely elevated filling pressures (PCWP = 25 mmHg at 109.3 kg).
2. Mild to moderate, postcapillary pulmonary hypertension (mean PAP = 35 mmHg, PCWP = 25 mmHg, PVR = 1.75 Quiros units).
3. Preserved cardiac index (2.63 L/min/m�).
Acute HFpEF:
-CXR/echo above
-proBNP 3190
-trops NEG
-cont IV Lasix based on RHC findings of severely elevated filling pressures/PCWP
-ALISA on likely CKD3b due to CRS, Cr appears to have plateaued
-I/Os inaccurate, follow daily wts
Asymptomatic sinus bradycardia:
-BB stopped
-HRs have overall improved
Essential hypertension with hypertensive urgency:
-cont Hydralazine/Imdur
-start Procardia
DM2:
-a1c 8.8%
-cont Lantus 34U HS, premeal aspart 13U, SSI/accuchecks
-diabetes BATTING MACHINE OPERATOR INSULATION following
Other problems:
Hyperkalemia, resolved
Hyperphosphatemia
Chronic right heel wound: wound care, outpt f/u
Chronic anemia: Hb stable
Peripheral neuropathy
Obesity due to excess calories
Hyperlipidemia
Chronic opioid use with dependence: cont home narcotic regimen. Cont miralax.
FULL/heparin
Anticipated Discharge: 24 - 48 hours
Subjective/Interval History
-
Date of Service: October 30, 2023
Denies CP/SOB.
Objective Data
-
Labs:
Laboratory Results
10/30/23
05:50
Sodium 136
Potassium 4.0
Chloride 96 L
Carbon Dioxide 32 H
BUN 49 H
Creatinine 2.9 H
Glucose 187 H
Calcium 8.1 L
Vital Signs:
Vital Signs
Temp Pulse Resp BP Pulse Ox
97.7 F 54 18 171/80 98
10/30/23 07:00 10/30/23 07:00 10/30/23 07:00 10/30/23 07:00 10/30/23 07:00
I&O
10/29/23 10/30/23 10/31/23
06:59 06:59 06:59
Intake Total 1200 / 1200 840 / 840
Output Total 900 / 900 800 / 800
Balance 300 / 300 40 / 40
[2023-10-30] MEDS: MIRALAX 17 GRAMS PO (09:15)
[2023-10-30] MEDS: APRESOLINE 100 MG PO ×3 (09:17→22:18)
--- NOTE | 2023-10-30 09:18 | CM ---
Reviewed cost for Farxiga 10 mg and Jardiance 10 mg
Per [facility]-Farxiga 10 mg 143.25
Jardiance 150.55
Will update attending and patient.
Plan: Case management will continue to follow and assist with discharge planning. Will review potential SNFs with patient.
[2023-10-30] MEDS: ROXICODONE 15 MG PO ×3 (09:19→22:18)
[2023-10-30] MEDS: ASPIR LOW (ENTERIC COATED) 81 MG PO (09:19)
[2023-10-30] MEDS: LASIX 80 MG IV ×2 (09:19→15:52)
[2023-10-30] MEDS: HEPARIN 5000 UNITS SC ×2 (09:21→21:18)
[2023-10-30] MEDS: DESENEX/MITRAZOL/ZEASORB 1 APPLIC TOPICAL ×2 (09:21→21:20)
[2023-10-30] MEDS: DAKIN'S SOLUTION 0.125% 1/4 STRENGTH 10 ML TOPICAL (09:22)
[2023-10-30] MEDS: PROCARDIA XL (EXTENDED RELEASE) 30 MG PO (09:29)
[2023-10-30] MEDS: IMDUR (EXTENDED RELEASE) 30 MG PO (09:30)
[2023-10-30] MEDS: NOVOLOG FLEXPEN-LOW RESISTANCE 2 UNITS SC ×2 (09:56→13:17)
[2023-10-30] MEDS: NOVOLOG FLEXPEN 13 UNITS SC ×3 (09:56→19:09)
--- NOTE | 2023-10-30 10:00 | CM ---
Reviewed chart, patient per rafa has an option to go to [facility], [facility], [facility]. Will review with patient.
Plan: Case management will continue to follow and assist with discharge planning. SNF when stable.
[2023-10-30] MEDS: NOVOLOG FLEXPEN SC (10:02)
--- NOTE | 2023-10-30 10:05 | W.PN.CD ---
Today's Communication / Plan
-
Cont IV diuresis breathing improved
Added nifedipine 30 mg for BP control
Impression / Plan
-
72-year-old male with hypertension, hyperlipidemia, diabetes, CKD 3a, and obesity presenting with a 3-day history of progressive shortness of breath. The patient denies chest pain, palpitations, or syncopal events. Blood pressure was noted to be
elevated on admission. Clinical concern for CHF, given significant lower extremity edema.
SOB 2/2 acute on chronic HFpEF :
-RHC shows severely elevatd filling pressures from October 27,
-concern for acute HFpEF, BNP 3190, 3+ edema on admit
-Cont IV lasix, which requires intensive monitoring, breathing and weight improving
-Echo 10/25/2023 with normal LVEF and AoV sclerosis, indeterminate diastolic fxn, RA est at 3 mmHg and PASP normal
-creatinine is worsening with diuresis. Patient thinks edema is improving. Denies SOB. Weight continues to come down, he tells me dry weight ~ 230 lbs
Hypertension:
-added Nifedipine 30 mg October 29
-hydralazine dosing increased and Imdur added
-monitor with diuresis, but may need to increase above meds
-avoiding amlodipine with LE edema,
CKD3a:
-creat issues and eval as above
- stabilized about 2.8,2.9
Hyperlipidemia: continue statin
DM, Hemoglobin A1c 8.8%.
Obesity, BMI 40.9
RHC: CONCLUSION:
1. Severely elevated filling pressures (PCWP = 25 mmHg at 109.3 kg).
2. Mild to moderate, postcapillary pulmonary hypertension (mean PAP = 35 mmHg, PCWP = 25 mmHg, PVR = 1.75 Quiros units).
3. Preserved cardiac index (2.63 L/min/m�).
Physical Exam
Vital Signs/Labs
Vital Signs
Temp Pulse Resp BP Pulse Ox
97.7 F 54 18 171/80 98
10/30/23 07:00 10/30/23 09:29 10/30/23 07:00 10/30/23 09:29 10/30/23 07:00
10/29/23 10/30/23 10/31/23
06:59 06:59 06:59
Actual Weight 238 lb 1.6 oz 235 lb 1 oz
10/28/23 06:12
10/30/23 05:50
Magnesium 2.1 mg/dl (1.6-2.3) 10/27/23 05:34
Triglycerides 135 mg/dl (10-149) 10/25/23 11:40
LDL Cholesterol, Calc 127 mg/dl 10/25/23 11:40
VLDL Cholesterol, Calc 27 mg/dl (0-30) 10/25/23 11:40
HDL Cholesterol 59 mg/dl 10/25/23 11:40
TSH 2.25 uIU/ml (0.47-4.68) 10/25/23 11:40
10/23/23
17:26
Yfc-Q-Iisepzxaunf Pept 3190
Physical Exam
Constitutional: No acute distress
EENT: Anicteric
Cardiovascular: Rhythm & rate is regular and Pedal edema present (trivial)
Respiratory: Respiratory effort normal and Lungs clear to auscul.
GI: Soft
Neuro/Psych: AO x 3
Data Reviewed
-
Date of Service: October 30, 2023
EKG: Tracing Personally Visualized and interpreted (sr)
Echo: Report Reviewed by me
Labs: Labs Reviewed by me
--- NOTE | 2023-10-30 10:27 | WOUNDNOTE ---
[facility] RN note: RN Luther recently changed patient's R heel dressing and Luther reports R heel wound improved, smaller in size, less drainage, no odor. Patient tolerating Tubigrip. Sacral skin intact. Patient sitting on the side of the bed. Patient
stood during sacral assessment. Current wound care appropriate. Patient wearing his R heel relief shoe. Appetite good. Will follow as needed. Patient to follow up at [facility].
[2023-10-30 11:00] VITALS: BP 144/62
[2023-10-30 13:10] LABS: Glucose - Point of Care 242 mg/dl (70-99)
[2023-10-30 15:00] VITALS: BP 120/63
[2023-10-30 17:04] LABS: Glucose - Point of Care 183 mg/dl (70-99)
[2023-10-30 19:06] VITALS: BP 152/81
[2023-10-30] MEDS: NOVOLOG FLEXPEN-LOW RESISTANCE 1 UNITS SC (19:10)
[2023-10-30] MEDS: LIPITOR 40 MG PO (19:11)
[2023-10-30 21:22] LABS: Glucose - Point of Care 225 mg/dl (70-99)
[2023-10-30] MEDS: LANTUS 0.34 UNITS SC (22:18)
[2023-10-30 22:49] VITALS: BP 160/77
[2023-10-31 03:36] LABS: Glucose - Point of Care 149 mg/dl (70-99)
[2023-10-31 03:49] VITALS: BP 148/72
[2023-10-31 06:00] VITALS: BMI 38.0
[2023-10-31 07:38] LABS: Glucose - Point of Care 114 mg/dl (70-99)
[2023-10-31 07:42] LABS: Blood Urea Nitrogen 50 mg/dl (9-20); Calcium 8.8 mg/dl (8.4-10.2); Carbon Dioxide 29 mmol/L (22-30); Chloride 97 mmol/L (98-107); Estimated Creatinine Clearance 25 ml/min; Glucose 124 mg/dl (70-99); Potassium 4.1 mmol/L (3.5-5.1); Sodium 137 mmol/L (135-145); eGFR 20.57
[2023-10-31 07:47] VITALS: BP 165/75
[2023-10-31] MEDS: NOVOLOG FLEXPEN-LOW RESISTANCE SC ×2 (08:07→16:13)
--- NOTE | 2023-10-31 08:27 | W.PN.HOSP.TC ---
Today's Communication/Plan
-
see bold
Assessment / Plan
Assessment / Plan
Gen: NAD, Awake and alert
Eyes: EOMI, PERRLA, no scleral icterus.
Neck: supple.
CV: RRR, +S1/S2, no m/r/g.
Resp: CTAB, no rales, wheezes, or rhonchi.
Abd: +BS, soft, NT, ND
Skin: No rashes. remains trace dependent RLE edema
Neuro: CN 2-12 intact, non-focal.
Psych: Normal mood and affect.
CXR:
1. Mild acute interstitial cardiogenic pulmonary edema.
2. Small bilateral pleural effusions.
3. Mild cardiomegaly.
Echo: Normal biventricular size and systolic function without regional wall motion abnormality. Estimated LVEF 55-60%. Aortic sclerosis without stenosis. Compared to 08/29/21: no significant change.
RHC 10/28/23:
1. Severely elevated filling pressures (PCWP = 25 mmHg at 109.3 kg).
2. Mild to moderate, postcapillary pulmonary hypertension (mean PAP = 35 mmHg, PCWP = 25 mmHg, PVR = 1.75 Quiros units).
3. Preserved cardiac index (2.63 L/min/m�).
Acute HFpEF:
-CXR/echo above
-proBNP 3190
-trops NEG
-currently on IV Lasix based on RHC findings of severely elevated filling pressures/PCWP
-ALISA on likely CKD3b due to CRS, Cr slightly up from yesterday
-I/Os inaccurate, follow daily wts
Asymptomatic sinus bradycardia:
-BB stopped
-HRs have overall improved
Essential hypertension with hypertensive urgency:
-cont Hydralazine/Imdur/Procardia
DM2:
-a1c 8.8%
-cont Lantus 34U HS, premeal aspart 15U, SSI/accuchecks
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
Other problems:
Hyperkalemia, resolved
Hyperphosphatemia
Chronic right heel wound: wound care, outpt f/u
Chronic anemia: Hb stable
Peripheral neuropathy
Obesity due to excess calories
Hyperlipidemia
Chronic opioid use with dependence: cont home narcotic regimen. Cont miralax.
FULL/heparin
Anticipated Discharge: 24 - 48 hours
Subjective/Interval History
-
Date of Service: October 31, 2023
No new complaints.
Objective Data
-
Labs:
Laboratory Results
10/31/23
06:21
Sodium 137
Potassium 4.1
Chloride 97 L
Carbon Dioxide 29
BUN 50 H
Creatinine 3.1 H
Glucose 124 H
Calcium 8.8
Vital Signs:
Vital Signs
Temp Pulse Resp BP Pulse Ox
97.9 F 62 16 165/75 95
10/31/23 07:47 10/31/23 07:47 10/31/23 07:47 10/31/23 07:47 10/31/23 07:47
I&O
10/30/23 10/31/23 11/01/23
06:59 06:59 06:59
Intake Total 840 / 840 480 / 480
Output Total 800 / 800 875 / 875
Balance 40 / 40 -395 / -395
--- NOTE | 2023-10-31 08:29 | W.PN.CD ---
Today's Communication / Plan
-
Hold diuresis
Likely dry weight around 234 lbs, his symptoms are much improved
Likely start lasix 80 mg daily tomorrow
SGLT2i affordability?
Impression / Plan
-
72-year-old male with hypertension, hyperlipidemia, diabetes, CKD 3a, and obesity presenting with a 3-day history of progressive shortness of breath. The patient denies chest pain, palpitations, or syncopal events. Blood pressure was noted to be
elevated on admission. Clinical concern for CHF, given significant lower extremity edema.
SOB 2/2 acute on chronic HFpEF :
-RHC shows severely elevatd filling pressures from October 27,
-concern for acute HFpEF, BNP 3190, 3+ edema on admit
-Cr inreased today hold diuresis for today
-Echo 10/25/2023 with normal LVEF and AoV sclerosis, indeterminate diastolic fxn, RA est at 3 mmHg and PASP normal
-creatinine is worsening with diuresis. Patient thinks edema is improving. Denies SOB. [id number] today possibly new dry weight?
Hypertension:
-increase Nifedipine 60 mg October 30
-hydralazine dosing increased and Imdur added
-monitor with diuresis, but may need to increase above meds
-avoiding amlodipine with LE edema
CKD3a:
-creat issues and eval as above
- stabilized about 2.8,2.9
Hyperlipidemia: continue statin
DM, Hemoglobin A1c 8.8%.
Obesity, BMI 40.9
RHC: CONCLUSION:
1. Severely elevated filling pressures (PCWP = 25 mmHg at 109.3 kg).
2. Mild to moderate, postcapillary pulmonary hypertension (mean PAP = 35 mmHg, PCWP = 25 mmHg, PVR = 1.75 Quiros units).
3. Preserved cardiac index (2.63 L/min/m�).
Physical Exam
Vital Signs/Labs
Vital Signs
Temp Pulse Resp BP Pulse Ox
97.9 F 62 16 165/75 95
10/31/23 07:47 10/31/23 07:47 10/31/23 07:47 10/31/23 07:47 10/31/23 07:47
10/30/23 10/31/23 11/01/23
06:59 06:59 06:59
Actual Weight 235 lb 1 oz 235 lb 3 oz
10/28/23 06:12
10/31/23 06:21
Magnesium 2.1 mg/dl (1.6-2.3) 10/27/23 05:34
Triglycerides 135 mg/dl (10-149) 10/25/23 11:40
LDL Cholesterol, Calc 127 mg/dl 10/25/23 11:40
VLDL Cholesterol, Calc 27 mg/dl (0-30) 10/25/23 11:40
HDL Cholesterol 59 mg/dl 10/25/23 11:40
TSH 2.25 uIU/ml (0.47-4.68) 10/25/23 11:40
10/23/23
17:26
Btn-Q-Apkptadarcj Pept 3190
Physical Exam
Constitutional: No acute distress
EENT: Anicteric
Cardiovascular: Rhythm & rate is regular
Respiratory: Respiratory effort normal and Lungs clear to auscul.
GI: Soft
Neuro/Psych: AO x 3
Data Reviewed
-
Date of Service: October 31, 2023
Echo: Report Reviewed by me
Labs: Labs Reviewed by me
[2023-10-31] MEDS: NOVOLOG FLEXPEN SC ×2 (09:32→16:13)
[2023-10-31] MEDS: PROCARDIA XL (EXTENDED RELEASE) PO (09:33)
[2023-10-31] MEDS: LASIX IV (09:33)
[2023-10-31] MEDS: MIRALAX 17 GRAMS PO (09:59)
[2023-10-31] MEDS: PROCARDIA XL (EXTENDED RELEASE) 60 MG PO (10:01)
[2023-10-31] MEDS: ROXICODONE 15 MG PO ×3 (10:01→20:59)
[2023-10-31] MEDS: APRESOLINE 100 MG PO ×3 (10:02→20:59)
[2023-10-31] MEDS: IMDUR (EXTENDED RELEASE) 30 MG PO (10:02)
[2023-10-31] MEDS: ASPIR LOW (ENTERIC COATED) 81 MG PO (10:03)
[2023-10-31] MEDS: HEPARIN 5000 UNITS SC ×2 (10:03→21:00)
[2023-10-31] MEDS: DAKIN'S SOLUTION 0.125% 1/4 STRENGTH 473 ML TOPICAL (10:06)
[2023-10-31] MEDS: DESENEX/MITRAZOL/ZEASORB 1 APPLIC TOPICAL ×2 (10:10→21:01)
[2023-10-31 11:10] VITALS: BP 142/63
[2023-10-31] MEDS: NOVOLOG FLEXPEN 15 UNITS SC ×2 (11:12→18:32)
[2023-10-31 11:56] LABS: Glucose - Point of Care 222 mg/dl (70-99)
--- NOTE | 2023-10-31 14:27 | PN.CDI ---
CDI
- -
CDI:
Physician Documentation Request
Admit Date: 10/25/23 12:26
Dear Doctor Jamey,
Please review the following and provide your response in the progress notes.
Clinical Indicators:
- 10/30 PN 'Acute HFpEF'
- 10/30 Cardiology 'acute on chronic HFpEF'
- 10/22 H&P - no documentation of pmh of heart failure
In an attempt to clarify potentially conflicting documentation, please clarify the acuity of HFpEF
Acute HFpEF
Acute on chronic HFpEF
Other
Use of terms such as suspected, likely, concern for, or probable (associated with a specific diagnosis that is being evaluated, monitored, or treated as if it exists) are acceptable and can be coded in the inpatient setting, when documented at the
time of discharge.
Thank you,
Eva Hodges RN
CDI Specialist
Please use your independent medical judgment in providing your response.
--- NOTE | 2023-10-31 14:30 | CM ---
Addendum entered by Fabiola Glover, [facility] 10/31/23 15:16:
Placed call to Roselyn in admissions at [facility] who provided # for report and fax #
[phone]
Addendum entered by Fabiola Glover, [facility] 10/31/23 15:04:
Placed a call to [facility] to obtain authorization. Spoke with a truck sales representative named, Halle Leong who after she took information, provided auth # [id number].
Auth is good for 10/31-11/12-NRD 11/11 # for fax [phone]
Will relay this to admissions at [facility].
Addendum entered by Fabiola Glovre, [facility] 10/31/23 14:32:
NPI for [facility]-[id number] attending Dr. Sharpe [id number]
Original Note:
Spoke with patient to provide SNF options and he selected [facility]. Will initiate auth attempt.
Plan: Case management will continue to follow and assist with discharge planning. Hopeful auth for SNF.
--- NOTE | 2023-10-31 14:42 | PTCARENOTE ---
Assumed care of pt from previous nurse. pt on tele running nsr. Pt dressing to right heel changed per order. Pt tolerated, denies pain. pt call nolasco is within reach, pt rings jaylyn. will cont to monitor
[2023-10-31 15:30] VITALS: BP 128/69
[2023-10-31 16:30] LABS: Glucose - Point of Care 174 mg/dl (70-99)
[2023-10-31] MEDS: LIPITOR 40 MG PO (18:02)
[2023-10-31] MEDS: NOVOLOG FLEXPEN-LOW RESISTANCE 1 UNITS SC (18:32)
[2023-10-31 21:50] LABS: Glucose - Point of Care 172 mg/dl (70-99)
[2023-10-31] MEDS: LANTUS 0.34 UNITS SC (21:55)
[2023-10-31 22:55] VITALS: BP 130/65
[2023-11-01 06:00] VITALS: BMI 38.1
[2023-11-01 07:25] LABS: Glucose - Point of Care 125 mg/dl (70-99)
--- NOTE | 2023-11-01 07:38 | PN.DE.MGMTRT ---
Insulin Management
- -
11/01/2023 Diabetes Management F/u:
Patient admitted on 10/24 with worsening SOB due to Acute CHF Exacerbation.
PMH: HTN, HLD, GERD, obesity, Neuropathy and T2DM. Prior to admission patient states he was taking Humulin N 45 units at 12MN and 45 units at 12 noon with Regular insulin 30 units at either breakfast or lunch. A1C 8.8%, improved from 11.9% on
08/04/23. Cr 2.9-->3.1, eGFR 20.57.
Last admission 07/2023 Patient was transitioned to Lantus @ HS and NovoLog had been discharged home on Lantus 47 units @ HS and NovoLog 20 units @0800,1630 and 18 units @1130. Pt reports that he picked up the new prescription but never started using
the insulin because he did not know how to use the insulin via Pen and that he had been using insulin via vial which he was comfortable with.
Patient is awake alert and oriented, resting in bed, able to discuss diabetes regimen.
Glucose stable w/o excursions. 10/30 pre meal glucose range 114 to 222
Will make no changes to current regime; Lantus 34 units @ HS, NovoLog 15 units AC and low corrective with meals
Patient was instructed 10/27 on insulin prep and administration using prefilled pen.
Encouraged Nursing to have patient self inject all NovoLog with prefilled pen to continue reinforcing education until pt is comfortable using insulin pens.
Pt already has insulin pens and needles at home since his last discharge.
Jardiance or Farxiga was discussed with patient in the past. $150.35 for one month Jardiance $451.01 for 3 month supply. $143.25 for Farxiga 1 month and $429.72 3 month supply. Patient stated he could not afford.
Diabetes History
- -
Type of Diabetes: 2 requiring insulin
Pre-Admission Diabetes Regimen
10/31/23
06:21
Creatinine 3.1 H
Lab Results
Hemoglobin A1c 8.8 % (4.0-5.6) H 10/24/23 06:29
Insulin Pump Settings
IP Diabetes Regimen
10/31/23 10/31/23 10/31/23
06:21 07:36 11:54
Glucose 124 H
POC Glucose 114 H 222 H
10/31/23 10/31/23 11/01/23
16:28 21:49 07:24
Glucose
POC Glucose 174 H 172 H 125 H
Patient Education
--- NOTE | 2023-11-01 07:51 | W.PN.HOSP.TC ---
Today's Communication/Plan
-
see bold
Assessment / Plan
Assessment / Plan
Gen: NAD, Awake and alert
Eyes: EOMI, PERRLA, no scleral icterus.
Neck: supple.
CV: Remains RRR, +S1/S2, no m/r/g.
Resp: Remains CTAB, no rales, wheezes, or rhonchi.
Abd: +BS, soft, NT, ND
Skin: No rashes. Continues to remain trace dependent RLE edema
Neuro: CN 2-12 intact, non-focal.
Psych: Normal mood and affect.
CXR:
1. Mild acute interstitial cardiogenic pulmonary edema.
2. Small bilateral pleural effusions.
3. Mild cardiomegaly.
Echo: Normal biventricular size and systolic function without regional wall motion abnormality. Estimated LVEF 55-60%. Aortic sclerosis without stenosis. Compared to 08/29/21: no significant change.
RHC 10/28/23:
1. Severely elevated filling pressures (PCWP = 25 mmHg at 109.3 kg).
2. Mild to moderate, postcapillary pulmonary hypertension (mean PAP = 35 mmHg, PCWP = 25 mmHg, PVR = 1.75 Quiros units).
3. Preserved cardiac index (2.63 L/min/m�).
Acute on chronic HFpEF:
-CXR/echo above
-proBNP 3190
-trops NEG
-was on IV Lasix based on RHC findings of severely elevated filling pressures/PCWP. With Cr bump on 10/31/23 IV Lasix was stopped, now converted to PO Lasix.
-ALISA on likely CKD3b due to CRS, Cr has plateaued. Nephrology will see in consultation.
-I/Os inaccurate, follow daily wts
Asymptomatic sinus bradycardia:
-BB stopped
-HRs have overall improved
Essential hypertension with hypertensive urgency:
-cont Hydralazine/Imdur/Procardia
DM2:
-a1c 8.8%
-cont Lantus 34U HS, premeal aspart 15U, SSI/accuchecks
-diabetes TITLE CLOSER following
Other problems:
Hyperkalemia, resolved
Hyperphosphatemia
Chronic right heel wound: wound care, outpt f/u
Chronic anemia: Hb stable
Peripheral neuropathy
Obesity due to excess calories
Hyperlipidemia
Chronic opioid use with dependence: cont home narcotic regimen. Cont miralax.
FULL/heparin
Being d/c planning.
Anticipated Discharge: Within 24 hours
Subjective/Interval History
-
Date of Service: November 01, 2023
Denies shortness of breath.
Objective Data
-
Vital Signs:
Vital Signs
Temp Pulse Resp BP Pulse Ox
98.4 F 68 20 130/65 97
10/31/23 22:55 10/31/23 22:55 10/31/23 22:55 10/31/23 22:55 10/31/23 22:55
I&O
10/31/23 11/01/23 11/02/23
06:59 06:59 06:59
Intake Total 480 / 480 1440 / 1440
Output Total 875 / 875
Balance -395 / -395 1440 / 1440
[2023-11-01 07:59] VITALS: BP 184/90
[2023-11-01] MEDS: NOVOLOG FLEXPEN-LOW RESISTANCE SC ×3 (08:11→18:30)
[2023-11-01 08:35] LABS: Blood Urea Nitrogen 50 mg/dl (9-20); Calcium 9.1 mg/dl (8.4-10.2); Carbon Dioxide 31 mmol/L (22-30); Chloride 98 mmol/L (98-107); Estimated Creatinine Clearance 26 ml/min; Glucose 101 mg/dl (70-99); Potassium 4.2 mmol/L (3.5-5.1); Sodium 139 mmol/L (135-145)
[2023-11-01] MEDS: PROCARDIA XL (EXTENDED RELEASE) 60 MG PO (08:58)
[2023-11-01] MEDS: IMDUR (EXTENDED RELEASE) 30 MG PO (08:58)
[2023-11-01] MEDS: APRESOLINE 100 MG PO ×3 (08:59→22:31)
[2023-11-01] MEDS: HEPARIN 5000 UNITS SC ×2 (08:59→20:32)
[2023-11-01] MEDS: ROXICODONE 15 MG PO ×3 (08:59→22:30)
[2023-11-01] MEDS: MIRALAX 17 GRAMS PO (08:59)
[2023-11-01] MEDS: DESENEX/MITRAZOL/ZEASORB 1 APPLIC TOPICAL ×2 (08:59→20:32)
[2023-11-01] MEDS: ASPIR LOW (ENTERIC COATED) 81 MG PO (08:59)
[2023-11-01] MEDS: DAKIN'S SOLUTION 0.125% 1/4 STRENGTH 473 ML TOPICAL (09:00)
[2023-11-01] MEDS: NOVOLOG FLEXPEN 15 UNITS SC ×2 (09:05→13:56)
--- NOTE | 2023-11-01 09:42 | W.PN.CD ---
Today's Communication / Plan
-
Lasix 80 mg daily
We will sign off please call with questions/concerns.
Impression / Plan
-
72-year-old male with hypertension, hyperlipidemia, diabetes, CKD 3a, and obesity presenting with a 3-day history of progressive shortness of breath. The patient denies chest pain, palpitations, or syncopal events. Blood pressure was noted to be
elevated on admission. Clinical concern for CHF, given significant lower extremity edema.
SOB 2/2 acute on chronic HFpEF :
-RHC shows severely elevatd filling pressures from October 27
-concern for acute HFpEF, BNP 3190, 3+ edema on admit, Breathing back to normal weight down
-Cr 3.0 stable, will add lasix 80 mg daily
-Echo 10/25/2023 with normal LVEF and AoV sclerosis, indeterminate diastolic fxn, RA est at 3 mmHg and PASP normal
-creatinine is worsening with diuresis. Patient thinks edema is improving. Denies SOB. 234 lbs likely dry weight
Hypertension:
-increase Nifedipine 60 mg October 30
-hydralazine dosing increased and Imdur added
-monitor with diuresis, but may need to increase above meds
-avoiding amlodipine with LE edema
CKD3a:
-3.0 October 30
- may benefit from nephrology consult given CKD and need for manager costing as outpt
Hyperlipidemia: continue statin
DM, Hemoglobin A1c 8.8%.
Obesity, BMI 40.9
RHC: CONCLUSION:
1. Severely elevated filling pressures (PCWP = 25 mmHg at 109.3 kg).
2. Mild to moderate, postcapillary pulmonary hypertension (mean PAP = 35 mmHg, PCWP = 25 mmHg, PVR = 1.75 Quiros units).
3. Preserved cardiac index (2.63 L/min/m�).
Physical Exam
Vital Signs/Labs
Vital Signs
Temp Pulse Resp BP Pulse Ox
98.1 F 71 16 184/90 96
11/01/23 07:59 11/01/23 07:59 11/01/23 07:59 11/01/23 07:59 11/01/23 07:59
10/31/23 11/01/23 11/02/23
06:59 06:59 06:59
Actual Weight 235 lb 3 oz 235 lb 11.2 oz
10/28/23 06:12
11/01/23 08:09
Magnesium 2.1 mg/dl (1.6-2.3) 10/27/23 05:34
Triglycerides 135 mg/dl (10-149) 10/25/23 11:40
LDL Cholesterol, Calc 127 mg/dl 10/25/23 11:40
VLDL Cholesterol, Calc 27 mg/dl (0-30) 10/25/23 11:40
HDL Cholesterol 59 mg/dl 10/25/23 11:40
TSH 2.25 uIU/ml (0.47-4.68) 10/25/23 11:40
10/23/23
17:26
Kem-D-Vfqmataglyv Pept 3190
Physical Exam
Constitutional: No acute distress and Comfortable
EENT: Anicteric
Cardiovascular: Rhythm & rate is regular and Pedal edema is absent
Respiratory: Respiratory effort normal and Lungs clear to auscul.
GI: Soft
Neuro/Psych: AO x 3
Data Reviewed
-
Date of Service: November 01, 2023
Medical Decision Making: Reviewed Test Results
Echo: Report Reviewed by me
Labs: Labs Reviewed by me
[2023-11-01 10:17] VITALS: BP 133/59
[2023-11-01] MEDS: LASIX 80 MG PO (10:23)
[2023-11-01 11:08] LABS: Glucose - Point of Care 124 mg/dl (70-99)
--- NOTE | 2023-11-01 11:54 | W.CON.NEPH ---
Consultation
-
Date/Time Consultation Requested: November 01, 2023 8 AM
Date/Time Consultation Performed: November 01, 2023 11 AM
Requesting Provider: Dr. Concepcion
Performing Provider: Dr. Ricci
Reason for Consultation: Acute kidney injury
Medical History
-
Chief Complaint: Shortness of breath
History of Present Illness:
This is a 72-year-old gentleman who has chronic kidney disease stage IIIb baseline creatinine running approximately 1.7 at baseline. He has not had nephrologic care previously. He also has known diabetes on insulin therapy which he says has been
under fair control over time. He also hypertension on a multidrug regimen which he says is also been well-controlled. He was admitted 9 days ago because of worsening lower extremity edema as well as dyspnea. During his hospitalization he
underwent cardiac catheterization with right heart catheterization on October 27 which showed a wedge pressure of 25. He was found to have heart failure with preserved ejection fraction and he was diuresed with IV Lasix. His weight did improve but his
creatinine began to rise now hitting a peak of 3.1. We are asked to assist with management of the acute kidney injury.
Past Medical History
CKD 3b
Diabetes mellitus type 2
neuropathy
Hyperlipidemia
Hypertension
Heart failure preserved ejection fraction
Social History
Tobacco: Non-Smoker
Alcohol: None
Family History
No CKD
Family History: Not Pertinent
Allergies / Home Medications
Allergy/AdvReac Type Severity Reaction Status Date / Time
cat dander Allergy Unknown Verified 08/06/23 13:11
dog dander Allergy Unknown Verified 08/06/23 13:11
�Medication �Instructions �Recorded �Confirmed �Type
oxycodone 15 mg tablet 15 mg PO TID Pain 09/10/23 10/23/23 History
telmisartan 20 mg tablet 20 mg PO DAILY Blood Pressure 09/10/23 09/10/23 History
aspirin 81 mg tablet,delayed 81 mg PO DAILY Blood Clot 10/23/23 10/23/23 History
release Prevention/Tx
hydralazine 10 mg tablet 10 mg PO TID Blood Pressure 10/23/23 10/23/23 History
insulin NPH isoph U-100 human 100 45 - 50 unit SC HS Diabetes 10/23/23 10/23/23 History
unit/mL (3 mL) subcutaneous pen
(Novolin N FlexPen)
insulin regular human 100 unit/mL 30 unit SC BID Diabetes 10/23/23 10/23/23 History
(3 mL) subcutaneous pen (Novolin R
FlexPen)
nebivolol 20 mg tablet 20 mg PO DAILY Blood Pressure 10/23/23 History
amlodipine 10 mg tablet 10 mg PO DAILY Blood Pressure 10/26/23 History
gabapentin 100 mg capsule 100 mg PO TID Pain 10/26/23 History
Review of Systems
-
No current shortness of breath. No chest pain. No issues with urination.
All other systems: Negative unless noted
Physical Exam
Vital Signs
Vital Signs
Temp Pulse Resp BP Pulse Ox
98.1 F 71 16 133/59 96
11/01/23 07:59 11/01/23 07:59 11/01/23 07:59 11/01/23 10:17 11/01/23 07:59
Lab Results
WBC 8.1 10^3/uL (4.8-10.8) 10/28/23 06:12
RBC 3.81 10^6/uL (4.70-6.10) L 10/28/23 06:12
Hgb 11.0 g/dL (13.0-18.0) L 10/28/23 06:12
Hct 32.3 % (39.0-52.0) L 10/28/23 06:12
Plt Count 225 10^3/uL (130-400) 10/28/23 06:12
Sodium 139 mmol/L (135-145) 11/01/23 08:09
Potassium 4.2 mmol/L (3.5-5.1) 11/01/23 08:09
Chloride 98 mmol/L (98-107) 11/01/23 08:09
Carbon Dioxide 31 mmol/L (22-30) H 11/01/23 08:09
BUN 50 mg/dl (9-20) H 11/01/23 08:09
Creatinine 3.0 mg/dL (0.7-1.3) H 11/01/23 08:09
eGFR 21.40 11/01/23 08:09
Glucose 101 mg/dl (70-99) H 11/01/23 08:09
Calcium 9.1 mg/dl (8.4-10.2) 11/01/23 08:09
Phosphorus 5.0 mg/dl (2.5-4.5) H 10/27/23 05:34
Aeh-M-Owwwxqhpqdc Pept 3190 pg/ml 10/23/23 17:26
Albumin 3.2 g/dl (3.5-5.0) L 10/24/23 06:29
Physical Exam
Patient is awake alert oriented and in no distress. Mood and affect were pleasant, insight and judgment were good. Pupils are equal round and reactive to light, extraocular movements are intact, sclera were anicteric. Hearing was normal, ears and
nose are intact. Oropharynx was clear. Neck was supple with trachea midline and no thyromegaly. Heart was regular rate and rhythm without rubs. Lower extremities without edema. Lungs were clear to auscultation bilaterally and with normal
excursion. Abdomen was soft, nontender, with normal active bowel sounds, and no hepatosplenomegaly. Skin was without rash and with normal turgor.
Data Reviewed
-
Radiology: Image Personally Visualized and interpreted (Chest x-ray on October 23, 2023 by my reading shows cardiomegaly, small effusions, vascular prominence)
Ultrasound: Report Reviewed by me (Renal ultrasound on August 14, 2023 shows right kidney 11.9 cm, left kidney 12.8 cm, bilateral exophytic cysts. No hydronephrosis)
Medical Tests (Nuc Med, Echo etc): Image Personally Visualized and interpreted (EKG on October 25, 2023 by read shows sinus bradycardia), Report Reviewed by me (Echocardiogram on October 25, 2023 shows ejection fraction 55%, no significant valvular disease)
and Other (Cardiac right heart catheterization on October 25, 2023 shows wedge pressure 25)
Labs: Labs Reviewed by me (Sodium 139, potassium 4.2, bicarbonate 31, BUN 50, creatinine 3.0)
Old Records: Reviewed (On September 02, 2023 creatinine 1.4, on August 08, 2023 pain 1.7)
Assessment/Plan
-
Assessment
Acute kidney injury
CKD 3B baseline 1.4�1.7
Heart failure preserved ejection fraction
Hypertension
Diabetes mellitus type 2
Hyperlipidemia
Plan
I suspect that he is at a good weight at this point.
He has been converted to oral Lasix
I will hold Lasix tomorrow morning until blood work returns.
Follow BMP
His urinalysis did not have significant proteinuria and his CKD may be on the basis of urinary retention
So long as his creatinine is improving, outpatient renal follow-up would be acceptable
--- NOTE | 2023-11-01 14:20 | PTCARENOTE ---
Continued insulin teaching. Novolog pen given to patient to administer himself at with lunch time. Pt was reminded 2 x prior to receiving lunch to notify nurse when meal arrived to receive insulin - nurse checked on patient and found him to have
finished half of meal already, no notification. Pt unable to verbalize what his meal time dose was, unable to see numbers on dose dial. Was able to verbalize s/s hypoglycemia and difference between long/short acting insulin. Also able to verbalize
correct injection sites.
[2023-11-01 15:20] VITALS: BP 130/87
[2023-11-01] MEDS: CITROMA 300 ML PO (15:59)
[2023-11-01 18:26] LABS: Glucose - Point of Care 75 mg/dl (70-99)
[2023-11-01] MEDS: LIPITOR 40 MG PO (18:33)
[2023-11-01] MEDS: NOVOLOG FLEXPEN SC ×2 (18:33→18:35)
[2023-11-01 21:37] LABS: Glucose - Point of Care 134 mg/dl (70-99)
[2023-11-01] MEDS: LANTUS SC (22:34)
--- NOTE | 2023-11-01 23:33 | PTCARENOTE ---
Assumed care of pt from previous nurse. pt denies pain. Pt call nolasco is within reach, pt rings jaylyn. will cont to monitor
[2023-11-01 23:45] VITALS: BP 163/81
[2023-11-02 06:00] VITALS: BMI 38.0
[2023-11-02 07:00] VITALS: BP 167/80
[2023-11-02 08:01] LABS: Glucose - Point of Care 176 mg/dl (70-99)
[2023-11-02] MEDS: NOVOLOG FLEXPEN-LOW RESISTANCE 1 UNITS SC (08:57)
[2023-11-02] MEDS: NOVOLOG FLEXPEN 15 UNITS SC ×2 (08:57→13:19)
[2023-11-02] MEDS: APRESOLINE 100 MG PO ×2 (08:58→16:52)
[2023-11-02] MEDS: MIRALAX 17 GRAMS PO (08:58)
[2023-11-02] MEDS: ASPIR LOW (ENTERIC COATED) 81 MG PO (08:58)
[2023-11-02] MEDS: HEPARIN 5000 UNITS SC (08:58)
[2023-11-02] MEDS: IMDUR (EXTENDED RELEASE) 30 MG PO (08:58)
[2023-11-02] MEDS: PROCARDIA XL (EXTENDED RELEASE) 60 MG PO (08:58)
[2023-11-02] MEDS: DAKIN'S SOLUTION 0.125% 1/4 STRENGTH 1 ML TOPICAL (08:58)
[2023-11-02] MEDS: ROXICODONE 15 MG PO ×2 (08:58→16:52)
[2023-11-02] MEDS: DESENEX/MITRAZOL/ZEASORB 1 APPLIC TOPICAL (08:59)
[2023-11-02 09:46] LABS: Blood Urea Nitrogen 50 mg/dl (9-20); Calcium 8.8 mg/dl (8.4-10.2); Carbon Dioxide 31 mmol/L (22-30); Chloride 99 mmol/L (98-107); Estimated Creatinine Clearance 28 ml/min; Glucose 153 mg/dl (70-99); Potassium 4.4 mmol/L (3.5-5.1); Sodium 137 mmol/L (135-145); eGFR 24.28
--- NOTE | 2023-11-02 10:56 | W.PN.HOSP.TC ---
Addendum entered and electronically signed by George Concepcion MD 11/02/23 13:42:
Total time spent on d/c = 36 min. This included today's physical exam, progress note, review of laboratory and diagnostic data, preparation of discharge documents and prescriptions, and discussions about the pt's hospital course and discharge plan
with the patient and other medical records tech involved in the patient's care.
Original Note:
Today's Communication/Plan
-
d/c
Assessment / Plan
Assessment / Plan
Gen: NAD, Awake and alert
Eyes: EOMI, PERRLA, no scleral icterus.
Neck: supple.
CV: Remains RRR, +S1/S2, no m/r/g.
Resp: Remains CTAB, no rales, wheezes, or rhonchi.
Abd: +BS, soft, NT, ND
Skin: No rashes. Continues to remain trace dependent RLE edema
Neuro: CN 2-12 intact, non-focal.
Psych: Normal mood and affect.
CXR:
1. Mild acute interstitial cardiogenic pulmonary edema.
2. Small bilateral pleural effusions.
3. Mild cardiomegaly.
Echo: Normal biventricular size and systolic function without regional wall motion abnormality. Estimated LVEF 55-60%. Aortic sclerosis without stenosis. Compared to 08/29/21: no significant change.
RHC 10/28/23:
1. Severely elevated filling pressures (PCWP = 25 mmHg at 109.3 kg).
2. Mild to moderate, postcapillary pulmonary hypertension (mean PAP = 35 mmHg, PCWP = 25 mmHg, PVR = 1.75 Quiros units).
3. Preserved cardiac index (2.63 L/min/m�).
Acute on chronic HFpEF:
-CXR/echo above
-proBNP 3190
-trops NEG
-was on IV Lasix based on RHC findings of severely elevated filling pressures/PCWP. With Cr bump on 10/31/23 IV Lasix was stopped and pt was converted to PO Lasix. PO lasix was then on hold with ALISA (on likely CKD3b due to CRS). Cr plateaued, now
improving, Lasix restarted at 80mg PO daily. Nephrology following.
-I/Os inaccurate, follow daily wts
Asymptomatic sinus bradycardia:
-BB stopped
-HRs have overall improved
Essential hypertension with hypertensive urgency:
-cont Hydralazine/Imdur/Procardia
DM2:
-a1c 8.8%
-cont Lantus 34U HS, premeal aspart 15U, SSI/accuchecks
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
Other problems:
Hyperkalemia, resolved
Hyperphosphatemia
Chronic right heel wound: wound care, outpt f/u
Chronic anemia: Hb stable
Peripheral neuropathy
Obesity due to excess calories
Hyperlipidemia
Chronic opioid use with dependence: cont home narcotic regimen. Cont miralax.
FULL/heparin
Medically cleared for discharge, case management aware.
Anticipated Discharge: Today
Subjective/Interval History
-
Date of Service: November 02, 2023
No new complaints.
Objective Data
-
Labs:
Laboratory Results
11/02/23
08:40
Sodium 137
Potassium 4.4
Chloride 99
Carbon Dioxide 31 H
BUN 50 H
Creatinine 2.7 H
Glucose 153 H
Calcium 8.8
Vital Signs:
Vital Signs
Temp Pulse Resp BP Pulse Ox
97.7 F 70 16 167/80 96
11/02/23 07:00 11/02/23 07:00 11/02/23 07:00 11/02/23 07:00 11/02/23 07:00
I&O
07/12/24 07/13/24 07/14/24
06:59 06:59 06:59
Intake Total 1440 / 1440 1500 / 1500
Balance 1440 / 1440 1500 / 1500
--- NOTE | 2023-11-02 11:01 | W.PN.NEPH.PH ---
Today's Communication / Plan
-
po lasix
Assessment/Plan
-
Assessment
Acute kidney injury
CKD 3B baseline 1.4�1.7
Heart failure preserved ejection fraction
Hypertension
Diabetes mellitus type 2
Hyperlipidemia
Plan
po lasix
follow BMP
check PVR
-
-
Date of Service: November 02, 2023
CC / HPI / ROS
-
Chief Complaint:
ALISA
History of Present Illness:
ALISA/Cr down to 2.7
BP stable
not requiring supplemental O2
Review of Systems:
no CP/SOB
Labs
-
Labs:
WBC 8.1 10^3/uL (4.8-10.8) 10/28/23 06:12
RBC 3.81 10^6/uL (4.70-6.10) L 10/28/23 06:12
Hgb 11.0 g/dL (13.0-18.0) L 10/28/23 06:12
Hct 32.3 % (39.0-52.0) L 10/28/23 06:12
Plt Count 225 10^3/uL (130-400) 10/28/23 06:12
Sodium 137 mmol/L (135-145) 11/02/23 08:40
Potassium 4.4 mmol/L (3.5-5.1) 11/02/23 08:40
Chloride 99 mmol/L (98-107) 11/02/23 08:40
Carbon Dioxide 31 mmol/L (22-30) H 11/02/23 08:40
BUN 50 mg/dl (9-20) H 11/02/23 08:40
Creatinine 2.7 mg/dL (0.7-1.3) H 11/02/23 08:40
eGFR 24.28 11/02/23 08:40
Glucose 153 mg/dl (70-99) H 11/02/23 08:40
Calcium 8.8 mg/dl (8.4-10.2) 11/02/23 08:40
Phosphorus 5.0 mg/dl (2.5-4.5) H 10/27/23 05:34
Ika-S-Hfhmhvowbwc Pept 3190 pg/ml 10/23/23 17:26
Albumin 3.2 g/dl (3.5-5.0) L 10/24/23 06:29
Physical Exam
-
Vital Signs:
Vital Signs
Temp Pulse Resp BP Pulse Ox
97.7 F 70 16 167/80 96
11/02/23 07:00 11/02/23 07:00 11/02/23 07:00 11/02/23 07:00 11/02/23 07:00
Cardiovascular:: Regular rate and rhythm
Respiratory:: Bilateral: Coarse
Lung Excursion:: Normal
Abdomen:: Nontender and Soft
Bowel Sounds:: Normal
Extremity Edema:: +1: Bilateral:
[2023-11-02 12:32] LABS: Glucose - Point of Care 130 mg/dl (70-99)
[2023-11-02] MEDS: NOVOLOG FLEXPEN-LOW RESISTANCE SC ×2 (13:19→16:53)
[2023-11-02] MEDS: DULCOLAX 10 MG RECTAL (13:19)
--- NOTE | 2023-11-02 13:31 | W.DCSUMMARY ---
Discharge Summary
Discharge Data
Date of Admission: 10/25/23
Date of Discharge: 11/02/23
-
Pending Results: No
Hospital Course
Primary diagnoses:
Acute on chronic heart failure with preserved ejection fraction
Acute kidney injury on chronic kidney disease stage IIIb due to cardiorenal syndrome
Secondary diagnoses:
Essential hypertension with hypertensive urgency
Asymptomatic sinus bradycardia
Type 2 diabetes mellitus
Hyperkalemia
Hyperphosphatemia
Chronic right heel wound
Chronic anemia
Peripheral neuropathy
Obesity due to excess calories
Hyperlipidemia
Chronic opioid use with dependence
Consultants:
Nephrology
Cardiology
Diabetes nurse practitioner
Imaging/Procedures:
CXR:
1. Mild acute interstitial cardiogenic pulmonary edema.
2. Small bilateral pleural effusions.
3. Mild cardiomegaly.
Echo: Normal biventricular size and systolic function without regional wall motion abnormality. Estimated LVEF 55-60%. Aortic sclerosis without stenosis. Compared to 08/29/21: no significant change.
RHC 10/28/23:
1. Severely elevated filling pressures (PCWP = 25 mmHg at 109.3 kg).
2. Mild to moderate, postcapillary pulmonary hypertension (mean PAP = 35 mmHg, PCWP = 25 mmHg, PVR = 1.75 Quiros units).
3. Preserved cardiac index (2.63 L/min/m�).
Hospital course: 73-year-old male presented with a chief complaint of shortness of breath as outlined in the H&P done on admission. Chest x-ray above. proBNP was 3190. Troponins were negative. Patient was diuresed with IV Lasix. He developed
acute kidney injury on chronic kidney disease stage IIIb. For this reason he had a right heart cath as above with findings of severely elevated filling pressures/PCWP. With Cr bump on 10/31/23 IV Lasix was stopped and the patient was converted to PO
Lasix. The patient's PO lasix was then on hold with ALISA (on likely CKD3b due to CRS). His Cr plateaued and then improved. Lasix was restarted at 80mg PO daily on discharge. Patient was discharged in medically stable condition.
Discharge Plan
-
Patient Disposition: Senior Care/SNF
Discharge Diagnosis/Procedures: Acute on chronic heart failure with preserved ejection fraction, acute kidney injury due to cardiorenal syndrome, essential hypertension with hypertensive urgency
Condition: Good
Diet: 2 Gram Sodium and Diabetic, Carb Controlled
Additional Diets: Fluid restrict to 1200 cc/day
Activity: With assistance
Driving Restrictions: No driving
Blood Work: BMP and CBC and magnesium in 3 days, prescription from PCP
Specialty Instructions: Weigh Daily- Call MD for wt gain/loss 3 lbs overnight/5 lbs in 1 week
Activity Restrictions/Additional Instructions:
Wound Care Instructions
R plantar heel wound-clean with 1/4 strength Dakin's solution, silver collagen, silver alginate, ABD Pad, secure with Kerlix wrap, change daily and as needed for drainage.
Bilateral knee high Tubigrip as tolerated; reapply every am.
R thigh wound-clean with saline or soap and water, apply silicone border foam, change every 3 days and as needed for loosened dressing.
Heel relief shoe R foot.
Elevate heels off bed/couch with pillows.
Pressure redistributing chair cushion (i.e. Air chair cushion).
Make routine appointment with vascular Dr. Choudhury or associate [phone].
Follow up at wound care center call for an appointment.
Instructions: *PCP/Other Research Soil Scientist Heart Failure Instructions
Referrals:
Stanislaw Mckinney DO [Family Provider] - in less than 1 week
Prescriptions:
New
polyethylene glycol 3350 [HealthyLax] 17 gram Powder In Packet
17 g PO DAILY Qty: 0 0RF
isosorbide mononitrate 30 mg Tablet Extended Release 24 Hr
30 mg PO DAILY Qty: 0 0RF
oxycodone 15 mg Tablet
15 mg PO TID Qty: 6 0RF
furosemide 80 mg Tablet
80 mg PO DAILY Qty: 0 0RF
hydralazine 50 mg Tablet
100 mg PO TID Qty: 0 0RF
nifedipine 60 mg Tablet Extended Release
60 mg PO DAILY Qty: 0 0RF
insulin aspart U-100 100 unit/mL (3 mL) Insulin Pen
15 unit SC AC Qty: 0 0RF
Insulin Glargine Lantus [Lantus] 34 UNITS
Subcutaneous Insulin Syringe [Syringe-Insulin] 0 UNIT
As Directed mls/hr SC HS
Ordered By: George Concepcion MD
Last Taken: 10/31/23 21:55 0.34 mls
Continued
aspirin 81 mg Tablet,Delayed Release (Dr/Ec)
81 mg PO DAILY
Discontinued
oxycodone 15 mg tablet
15 mg PO TID
Patient Comments:
10/23/23: last filled 100 tablets on 09/26/23 at [facility]
telmisartan 20 mg Tablet
20 mg PO DAILY
Novolin R FlexPen 100 unit/mL (3 mL) Insulin Pen
30 unit SC BID
Novolin N FlexPen 100 unit/mL (3 mL) Insulin Pen
45 - 50 unit SC HS
nebivolol 20 mg Tablet
20 mg PO DAILY
hydralazine 10 mg tablet
10 mg PO TID
amlodipine 10 mg tablet
10 mg PO DAILY
gabapentin 100 mg capsule
100 mg PO TID
Discharge Orders:
Discharge Patient (As Directed); Ordered 11/02/23
Ordered By: George Concepcion
Discharge Date and Time
Print Language: INDONESIAN
[2023-11-02 15:00] VITALS: BP 133/69
--- NOTE | 2023-11-02 15:45 | CM ---
Addendum entered by MYRNA Cannon 11/02/23 17:30:
Left voice mail at [facility] agency on aging that patient was d.c to [facility] today.
Original Note:
Placed call to Roselyn in admissions at [facility] who provided # for report and fax #
[phone]
updated patient of 1730 picking supervisor by ambulance. medical necessity and transport forms on chart.
[2023-11-02] MEDS: NOVOLOG FLEXPEN SC (16:53)
--- NOTE | 2023-11-02 17:01 | PTCARENOTE ---
PT refused me to do wound care to right LE. education provided. He stated he did not want it done before he goes to [facility].
== END 2023-11-02 17:18 | DRG 286 ==
LOC: 3 WEST ACU 12:26
PROVIDERS: Emergency Medicine; Family Medicine; Internal Medicine; Nurse Practitioner; ADMITTING PHYSICIAN Hospitalist; ATTENDING PHYSICIAN Internal Medicine; CONSULT PHYSICIAN Specialist; EMERGENCY PHYSICIAN Emergency Medicine; FAMILY PHYSICIAN Family Medicine; OTHER PHYSICIAN Internal Medicine; OTHER PHYSICIAN Psychiatry & Neurology Psychiatry
PROC: 4A023N6 Measurement of Cardiac Sampling and Pressure, Right Heart, Percutaneous Approach (ICD-10-PCS; 2023-10-28)
PROC: B2111ZZ Fluoroscopy of Multiple Coronary Arteries using Low Osmolar Contrast (ICD-10-PCS; 2023-10-28)
PROC: B2141ZZ Fluoroscopy of Right Heart using Low Osmolar Contrast (ICD-10-PCS; 2023-10-28)
DX: I13.0 Hypertensive heart and chronic kidney disease with heart failure and stage 1 through stage 4 chronic kidney disease, or unspecified chronic kidney disease (principal); I50.33 Acute on chronic diastolic (congestive) heart failure; N17.9 Acute kidney failure, unspecified; N18.32 Chronic kidney disease, stage 3b; E66.09 Other obesity due to excess calories; Z68.38 Body mass index [BMI] 38.0-38.9, adult
CPT/HCPCS: 71046; 80048; 80053; 80061; 82962; 83036; 83735; 83880; 84100; 84443; 84484; 85025; 85027; 87070; 87147; 93005; 93306; 93451; 96374; 97110; 97116; 97162; 97530; 99285; C1894

== ENCOUNTER → 2023-12-06 13:46 | Outpatient (REF) | payer MEDICARE, SELFPAY | LOC: WOUND 13:46 | PROVIDERS: ATTENDING PHYSICIAN Surgery; FAMILY PHYSICIAN Family Medicine | DX: L89.613 Pressure ulcer of right heel, stage 3 (principal); I87.313 Chronic venous hypertension (idiopathic) with ulcer of bilateral lower extremity; L97.211 Non-pressure chronic ulcer of right calf limited to breakdown of skin; L97.221 Non-pressure chronic ulcer of left calf limited to breakdown of skin; I89.0 Lymphedema, not elsewhere classified; I87.2 Venous insufficiency (chronic) (peripheral); E11.65 Type 2 diabetes mellitus with hyperglycemia; E11.42 Type 2 diabetes mellitus with diabetic polyneuropathy; E66.01 Morbid (severe) obesity due to excess calories; I10 Essential (primary) hypertension; Z79.4 Long term (current) use of insulin; Z78.9 Other specified health status | CPT/HCPCS: 99213 ==

== ENCOUNTER → 2023-12-06 15:11 | Outpatient (REF) | payer MEDICARE, SELFPAY | LOC: RAD 15:11 | PROVIDERS: ATTENDING PHYSICIAN Surgery | DX: L89.613 Pressure ulcer of right heel, stage 3 (principal) | CPT/HCPCS: 73630 ==